=== PATIENT | female | born 1960 | race African-American/Black ===

== ENCOUNTER 2020-05-28 23:20 | Inpatient (IN) ==
[2020-05-28] MEDS ORDERED: ZOFRAN INJ 4 MG VIAL ONE (23:30)
[2020-05-28] MEDS ORDERED: NS 1000 ML 1,000 ML ONE (23:43)
[2020-05-28] MEDS ORDERED: PHENERGAN INJ 25 MG IM ONE (23:52)
[2020-05-29] MEDS ORDERED: NS 1000 ML 1,000 ML ONE ×2 (00:14→04:48)
[2020-05-29] MEDS ORDERED: PHENERGAN INJ 25 MG IM ONE (00:27)
[2020-05-29] MEDS ORDERED: NS 1000 ML 1,000 ML IV ONE ×4 (00:28→01:40)
[2020-05-29] MEDS ORDERED: ZOFRAN INJ 4 MG VIAL IVP ONE (00:28)
[2020-05-29] MEDS ORDERED: NS 1000 ML 2,000 ML ONE (01:18)
--- NOTE | 2020-05-29 01:37 | DR.DIZZY ---
HPI Time seen Time Seen by Provider: 05/28/20 23:31 HPI Comment HPI Comment: PATIENT SAID SHE WOKE UP TO GO TO THE BATHROOM AND WAS DIZZY AND ATAXIC CAUSING HER TO FALL. SHE HAD STOOL ALL OVER THE FLOOR. SHE IS HAVING 10/10 THROBBING HEADACHE AND IS RUNNING LOW GRADE FEVER. SHE HAS PHOTOPHOBIA AND SLIGHTEST MONEMENT CAUSE PATIENT TO HAVE SEVERE HEADACHE. SHE IS CONFUSED AND IS HAVING INTERMITTENT CONTRACTIONS OF HER MUSCLES. SHE IS FULLY ALERT WITH THIS MOVEMENT. BEING WITH HER DAUGHTER WHO TESTED POSITIVE FOR THE COVID 19 VIRUS. SHE IS RESTLESS IN ER. Complaint Chief Complaint Doctor Comments: SUDDEN ONSET OF DIZZINESS AND IMBALANCE CAUSING PATIENT TO FALL AND HIT HER HEAD. COVID-19 Coronavirus risk:travel/contact w/high risk person: Yes Has patient experienced Coronavirus symptoms: No Nurses Notes Reviewed Nurses Notes Review: Yes Source History Provided: Patient Mode of Arrival Mode of Arrival: EMS Timing Came on: Suddenly Symptom Onset: Known Duration Duration: Constant Duration: Minutes Location of Weakness Weakness Location: Generalized Context Onset: At rest History of: None Stroke Symptoms: Ataxia, Acute confusion and Dizziness Severity Severity: Abnormal activity level Modifying factors Worsens: Change in Position, Turning Head and Rest Associated signs and symptoms Associated Signs and Symptoms: Vertigo, Imbalance, Weak, Change of Vision, Fever (LO9W GRADE FEVER.), Headache, Nausea and Vomiting PMH PMH Past Medical History: Diabetes and Hypertension Past Surgical History: Yes Surgical History: and Cholecystectomy Family History Family Medical History: Diabetes Mellitus and Hypertension Social History Do you use any recreational Drugs:: No ROS Review of Systems Constitutional: See HPI, Fever (LOWGRADE.), Weakness and Fatigue Eyes: See HPI and Photophobia ENTM: See HPI; negative Nose Discharge, Nose Congestion and Mouth Pain (MOUTH DRY.) Respiratoy: See HPI, Orthopnea and Short of Breath; negative Moist Cough and Wheezing Cardiovascular: No Symptoms Reported and See HPI; negative Chest Pain and Edema Gastrointestinal/Abdominal: See HPI, Nausea and Vomiting; negative Abdominal Pain Genitourinary: No Symptoms Reported, See HPI and Other; negative Dysuria, Frequency and Hematuria Neurological: See HPI, Headache, Weakness and Dizziness Musculoskeletal: See HPI and Muscle Pain; negative Back Pain Integumentary: No Symptoms Reported, See HPI and Change in Color; negative Rash and Juandice Hematologic/Lymphatic: No Symptoms Reported and See HPI; negative Easy Bruising and Swollen Glands Endocrine: No Symptoms Reported and See HPI; negative Increased Urine and Unexplained Weight Loss Psychiatric: See HPI and Anxiety All Other Systems: Reviewed and Negative PE Vital Signs Vitals: Temperature 98.8 F Pulse Rate [Left Brachial] 89 Pulse Rate 89 Respiratory Rate 20 Blood Pressure [Left Arm] 164/82 Blood Pressure 164/82 O2 Sat by Pulse Oximetry 99 General Limitations: Altered Mental Status General Appearance: Alert and In Distress Head Head Exam: Normal Inspection, Atraumatic and Normocephalic Eyes Eye exam: Normal Appearance and PERRL; negative Scleral Icterus and Conjunctival Injection Pupils: Regular, Round: Bilateral and Reactive: Bilateral Sclera/Conjunctival: Normal Inspection: Bilateral (PHOTOPHOBIA.) ENT ENT Exam: Normal Exam, Normal Oropharynx, Normal External Ear Exam and TM's Normal Bilaterally Neck Neck Exam: Normal Inspection and Trachea Midline; negative Tenderness and Lymphadenopathy Chest Chest Inspection: Normal Inspection and Symmetric Chest Wall Rise; negative Tenderness Respiratory Respiratory Exam: Normal Lung Sounds Bilat; negative Accessory Muscle Use, Chest Wall Tenderness and Respiratory Distress Respiratory Exam: Bilateral: Rhonchi Cardiovascular Cardiovascular Exam: Regular Rate, Normal Rhythm, Normal Heart Sounds, Systolic Murmur and Diastolic Murmur Abdominal Exam Abdominal Exam: Normal Inspection, Normal Bowel Sounds and Soft; negative Tenderness Rectal Rectal Exam: Deferred Extremeties Extremities Exam: Normal Inspection, Full ROM and Normal Capillary Refill; negative Tenderness, Edema and Calf Tenderness Back Back Exam: Normal Inspection and Full ROM; negative (R) CVA Tenderness, (L) CVA Tenderness and (R) Sciatic Notch Tenderness Neurologic Neurological Exam: Alert and Oriented X3; negative Motor Sensory Deficit Patient Oriented To: Person and Place; negative Time Speech: Fluid Speech Cranial Nerve Exam: Gag reflex (XI): Normal Motor Strength - LUE: 5/5 Motor Strength - RUE: 5/5 Motor Strength - LLE: 5/5 Upper Motor Neuron Exam: Babinski Sign: Normal Psychiatric Psychiatric Exam: Normal Affect and Anxious Skin Skin Exam: Dry MDM Additional Information Obtained Additional Information Obtained From: Old Records Differential Diagnosis Differential Diagnosis: Anemia, CVA, Dehydration, Dysrhythmia, Electrolyte disor adonay, Hypoglycemia, Labyrinthitis, Myocardial infarction and Central Vertigo Differential Diagnosis Comment: COVID 19 VIRUS INFECTION. COURSE Treatment Treatment: SEE ORDERS. NS 1L IV BOLUS TIMES 4. ZOSYN 3.375GM IVPB, ZOFRAN 4MG IV, PHENERGAN 25MG IM IN ER. PATIENT FEELING BETTER. Consultation Consultation Comments: DISSCUSSED PATIENT WITH DR. HASSAN. HE WILL ADMIT PATIENT. Education/Counseling Education/Counseling: Patient Educated On: Diagnosis ROR Labs Reviewed Laboratory Results Reviewed?: Yes Result Diagrams: 05/29/20 01:55 05/29/20 01:55 Laboratory: WBC 11.3 X10^3/uL (3.6-10.0) H 05/29/20 01:55 RBC 4.61 X10^6/uL (3.5-5.4) 05/29/20 01:55 Hgb 12.2 g/dL (12.0-16.0) 05/29/20 01:55 Hct 38.3 % (36.0-47.0) 05/29/20 01:55 MCV 83.0 fL (80.0-100.0) 05/29/20 01:55 MCH 26.5 pg (27.0-34.0) L 05/29/20 01:55 MCHC 31.9 g/dL (33.0-35.0) L 05/29/20 01:55 RDW 14.0 % (11.6-16.5) 05/29/20 01:55 Plt Count 176 X10^3/uL (150.0-450.0) 05/29/20 01:55 MPV 9.8 fL (7.4-11.0) 05/29/20 01:55 Neut % (Auto) 85.5 % (42.0-75.0) H 05/29/20 01:55 Lymph % (Auto) 9.3 % (21.0-51.0) L 05/29/20 01:55 [place] % (Auto) 4.8 % (0.0-13.0) 05/29/20 01:55 Eos % (Auto) 0.0 % (0.9-2.9) L 05/29/20 01:55 Baso % (Auto) 0.4 % (0.2-1.0) 05/29/20 01:55 Neut # (Auto) 9.7 x10^3/uL (2.2-4.8) H 05/29/20 01:55 Lymph # (Auto) 1.0 X10^3/uL (1.3-2.9) L 05/29/20 01:55 [place] # (Auto) 0.5 x10^3/uL (0.3-0.8) 05/29/20 01:55 Eos # (Auto) 0.0 x10^3/uL (0.0-0.2) 05/29/20 01:55 Baso # (Auto) 0.0 X10^3/uL (0.0-0.1) 05/29/20 01:55 Absolute Nucleated RBC 0.1 /100WBC 05/29/20 01:55 Sodium 136 mmol/L (136-145) 05/29/20 01:55 Corrected Sodium 139 mmol/L (136-145) 05/29/20 01:55 Potassium 4.2 mmol/L (3.5-5.1) 05/29/20 01:55 Chloride 103 mmol/L (98-107) 05/29/20 01:55 Carbon Dioxide 20.4 mmol/L (21-32) L 05/29/20 01:55 BUN 21 mg/dL (7-18) H 05/29/20 01:55 Creatinine 1.23 mg/dL (0.55-1.02) H 05/29/20 01:55 Est GFR (MDRD) Af Amer 57 (>60) L 05/29/20 01:55 Est GFR (MDRD) Non-Af 47 (>60) L 05/29/20 01:55 Glucose 216 mg/dL (65-99) H 05/29/20 01:55 Lactic Acid Cancelled 05/29/20 01:55 Calcium 8.8 mg/dL (8.5-10.1) 05/29/20 01:55 Corrected Calcium 9.4 mg/dL (8.5-10.1) 05/29/20 01:55 Ferritin 746 ng/mL (8-252) H 05/29/20 01:55 Total Bilirubin 0.40 mg/dL (0.2-1.0) 05/29/20 01:55 AST 42 Units/L (15-37) H 05/29/20 01:55 ALT 20 Units/L (12-78) 05/29/20 01:55 Alkaline Phosphatase 80 Units/L (46-116) 05/29/20 01:55 Creatine Kinase 256 Units/L (26-192) H 05/29/20 01:55 CK-MB (CK-2) 1.0 ng/mL (0-4.0) 05/29/20 01:55 CK/CKMB % Calc 0.4 % (<4) 05/29/20 01:55 Troponin I < 0.02 ng/mL (0-1.5) 05/29/20 01:55 C-Reactive Protein 82.00 mg/L (0-3.0) H 05/29/20 01:55 B-Natriuretic Peptide 24.3 pg/mL (0-79) 05/29/20 01:55 Total Protein 8.0 g/dL (6.4-8.2) 05/29/20 01:55 Albumin 3.2 g/dL (3.4-5.0) L 05/29/20 01:55 Globulin 4.8 g/dL (2.5-4.5) H 05/29/20 01:55 Albumin/Globulin Ratio 0.7 Ratio (1.1-2.1) L 05/29/20 01:55 Specimen Type Catherized urine 05/29/20 01:40 Urine Color Pale yellow (YELLOW) 05/29/20 01:40 Urine Appearance Clear (CLEAR) 05/29/20 01:40 Urine pH 5.0 (5.0 - 8.0) 05/29/20 01:40 Ur Specific [place] 1.010 (1.000-1.030) 05/29/20 01:40 Urine Protein 2+ (NEGATIVE) 05/29/20 01:40 Urine Glucose (UA) 4+ (NEGATIVE) 05/29/20 01:40 Urine Ketones 2+ (NEGATIVE) 05/29/20 01:40 Urine Occult Blood 1+ (NEGATIVE) 05/29/20 01:40 Urine Nitrite Negative (NEGATIVE) 05/29/20 01:40 Urine Bilirubin Negative (NEGATIVE) 05/29/20 01:40 Urine Urobilinogen Normal (NORMAL) 05/29/20 01:40 Ur Leukocyte Esterase Negative (NEGATIVE) 05/29/20 01:40 Urine RBC None seen /HPF (0-3) 05/29/20 01:40 Urine WBC None seen /HPF (0-5) 05/29/20 01:40 Ur Squamous Epith Cells Negative /HPF (NEGATIVE) 05/29/20 01:40 Urine Bacteria Trace /HPF (NEGATIVE) 05/29/20 01:40 Ur Culture Indicated? No/not indicated 05/29/20 01:40 Acetone, Semi-Quant Cancelled 05/29/20 01:55 SARS CoV-2 RNA Rapid MARILU Positive (NEGATIVE) A 05/29/20 02:05 XRAY XRAY Interpreted by: Radiologist (REPORTS NOTED AND DISCUSSED WITH PATIENT.) and Self EKG Rate: 91 [place]: Normal Rhythm: NSR Block: None Hypertrophy: None ST: Normal Opioid Opioid Risk Tool Age (Kartik box if 16-45): No History of Preadolescent Sexual Abuse: No Total: 0 Total Score Risk Category: Low Risk Copyright: Smith ENCAR[employer] predicting aberrant behaviors Diagnosis Discharge Problem: Acute dehydration, Vertigo, Acute hyperglycemia, COVID-19 virus infection AMS (altered mental status) Qualifiers: Altered mental status type: transient alteration of awareness Qualified Code(s): R40.4 - Transient alteration of awareness Instructions Forms: Precautions for COVID19 Patient Portal Social Distancing
[2020-05-29 02:12] LABS: BASOPHILS % (AUTO) 0.4 % (0.2-1.0); HEMATOCRIT 38.3 % (36.0-47.0); HEMOGLOBIN 12.2 g/dL (12.0-16.0); LYMPHOCYTES % (AUTO) 9.3 % (21.0-51.0); MEAN CORPUSCULAR HEMOGLOBIN 26.5 pg (27.0-34.0); MEAN CORPUSCULAR HGB CONC 31.9 g/dL (33.0-35.0); MEAN PLATELET VOLUME 9.8 fL (7.4-11.0); MONOCYTES # (AUTO) 0.5 x10^3/uL (0.3-0.8); MONOCYTES % (AUTO) 4.8 % (0.0-13.0); NEUTROPHILS # (AUTO) 9.7 x10^3/uL (2.2-4.8); NEUTROPHILS % (AUTO) 85.5 % (42.0-75.0); PLATELET COUNT 176 X10^3/uL (150.0-450.0); RED BLOOD COUNT 4.61 X10^6/uL (3.5-5.4); WHITE BLOOD COUNT 11.3 X10^3/uL (3.6-10.0)
[2020-05-29 02:28] LABS: BLOOD UREA NITROGEN 21 mg/dL (7-18); CALCIUM 8.8 mg/dL (8.5-10.1); CARBON DIOXIDE 20.4 mmol/L (21-32); CHLORIDE 103 mmol/L (98-107); COR NA(FOR HYPERGLY) 139 mmol/L (136-145); CREATININE 1.23 mg/dL (0.55-1.02); SODIUM 136 mmol/L (136-145); TROPONIN I < 0.02 ng/mL (0-1.5); eGFR NON BLACK RACES 47 (>60)
[2020-05-29 02:32] LABS: ALANINE AMINOTRANSFERASE 20 Units/L (12-78); ALBUMIN 3.2 g/dL (3.4-5.0); ALKALINE PHOSPHATASE 80 Units/L (46-116); ASPARTATE AMINO TRANSFERASE 42 Units/L (15-37); CKMB % 0.4 % (<4); COR CA(FOR HYPOALB) 9.4 mg/dL (8.5-10.1); CREATINE KINASE 256 Units/L (26-192)
[2020-05-29 02:36] LABS: BILIRUBIN,URINE NEGATIVE (NEGATIVE); BLOOD/HEMOGLOBIN,URINE 1+ (NEGATIVE); GLUCOSE, URINE 4+ (NEGATIVE); KETONES,URINE 2+ (NEGATIVE); LEUKOCYTE ESTERASE ,URINE NEGATIVE (NEGATIVE); NITRITES,URINE NEGATIVE (NEGATIVE); PROTEIN,URINE 2+ (NEGATIVE); UROBILINOGEN,URINE NORMAL (NORMAL)
[2020-05-29 02:40] LABS: APPEARANCE,URINE CLEAR (CLEAR); COLOR,URINE PALE YELLOW (YELLOW)
[2020-05-29 03:06] LABS: BACTERIA,URINE TRACE /HPF (NEGATIVE); RBC,URINE NONE SEEN /HPF (0-3); SQUAMOUS EPITHELIAL CELL,UR NEGATIVE /HPF (NEGATIVE)
[2020-05-29] MEDS ORDERED: NS 100 ML IV + SPIKE MINIBAG* 100 ML IV ONE (03:11)
[2020-05-29] MEDS ORDERED: ZOSYN VIAL 3.375 GRAMS 3.375 G in NS 100 ML IV + SPIKE MINIBAG* 100 ML IV ONE (03:11)
[2020-05-29] MEDS ORDERED: ZOSYN VIAL 3.375 GRAMS IV ONE (03:11)
--- NOTE | 2020-05-29 03:19 | RAD ---
PROCEDURE: Chest X-ray 1 View .HISTORY: Dizziness and falling with COVID-19.TECHNIQUE: AP view .COMPARISON: None .TECHNICAL QUALITY: Satisfactory .FINDINGS:Normal size heart .Mediastinum and hilar regions show no masses or lymphadenopathy .Normal central vascularity .No pulmonary consolidation, masses, pleural fluid, or pneumothorax .No acute bony abnormality .IMPRESSION:No active cardiopulmonary disease .Electronically signed by: Bucky Galicia (May 29, 2020 03:18:09)
--- NOTE | 2020-05-29 03:21 | CT ---
PROCEDURE: CT Head without Contrast .HISTORY: Dizziness and fall and.TECHNIQUE: Axial images were performed through the head without the administration of IV contrast with multiplanar reformations . Dose reduction techniques including Automated Exposure Control (AEC) and adjustment of mA and kV were utilized .COMPARISON: None .TECHNICAL QUALITY: Satisfactory .FINDINGS:Brain shows no mass, hemorrhage, or acute stroke.Ventricles are normal size for patient's age.Minimal basal ganglia calcifications bilaterally. Dense falcine calcifications.No acute skull or scalp abnormality.Visualized sinuses and mastoids are clear.IMPRESSION:No acute intracranial abnormality.Electronically signed by: Bucky Galicia (May 29, 2020 03:19:34)
[2020-05-29] MEDS ORDERED: ZOSYN VIAL 3.375 GRAMS 3.375 G in NS 100 ML IV + SPIKE MINIBAG* 100 ML IV SCH (04:11)
[2020-05-29] MEDS ORDERED: HumuLIN R SC PRN (04:36)
[2020-05-29 05:14] VITALS: BMI 29.9
[2020-05-29] MEDS ORDERED: ZESTRIL TAB 20 MG PO SCH (09:00)
[2020-05-29 09:53] LABS: ABG BASE EXCESS -8.1 mmol/L (-2.0-2.0)
[2020-05-29] MEDS: TRICOR TAB 160 MG PO SCH (10:20)
[2020-05-29] MEDS: COZAAR PO SCH (10:20)
[2020-05-29] MEDS: PROTONIX INJ 40 MG VIAL IVP SCH ×2 (10:20→20:05)
[2020-05-29] MEDS: ANTIVERT TAB 25 MG PO PRN ×2 (10:20→20:05)
[2020-05-29] MEDS: LOVENOX INJ 30 MG SYR SC SCH ×2 (11:22→20:05)
[2020-05-29] MEDS ORDERED: NS 100 ML IV 100 ML IV ONE (11:40)
[2020-05-29] MEDS: ZOSYN VIAL 3.375 GRAMS 3.375 G in NS 100 ML IV + SPIKE MINIBAG* 100 ML IV SCH ×2 (12:10→21:45)
--- NOTE | 2020-05-29 12:22 | CT ---
HISTORYElevated D-dimerSTUDYCTA chest with contrast for pulmonary embolusTechnique: Axial post-contrast images with coronal, sagittal, and 3 dimensional maximum intensity projection images obtained and evaluated. Dose reduction procedures were used with mA/kv adjusted for body size.COMPARISONNoneFINDINGSThere is no evidence for acute pulmonary thromboembolic disease. Examination of the mediastinum demonstrated no evidence for mediastinal masses, enlarged mediastinal or enlarged hilar adenopathy or significant aortic abnormality. No pleural effusions are identified. The right hemidiaphragm is elevated. No chest wall or axillary abnormality is identified. Those portions of the upper abdominal organs visualized were within normal limits. Examination of the lung sen demonstrated no significant nodules or masses to be present. There is some pleural parenchymal scarring in the left lung apex. There are no alveolar infiltrates areas of consolidation, peribronchial thickening, or bronchiectasis present. Scattered areas of subsegmental atelectasis are present.IMPRESSIONNo evidence for acute pulmonary thromboembolic diseaseNo acute alveolar infiltratesPleural parenchymal scarring medially in the left lung apexScattered areas of subsegmental atelectasis bilaterallyElevated right hemidiaphragmElectronically signed by: JANELLE KEITH (May 29, 2020 12:20:43)
[2020-05-29] MEDS ORDERED: OFIRMEV IV 1000 MG VIAL 750 MG/75 ML VIAL IV PRN (17:15)
[2020-05-29] MEDS ORDERED: OFIRMEV IV 1000 MG VIAL 1,000 MG/100 ML VIAL IV ONE (17:20)
--- NOTE | 2020-05-29 17:26 | DR.H&P ---
H&P - History & Physical for Day of: H&P Date: 05/29/20 - Chief Complaint Chief Complaint: COVID EXPOSURE, FEVER, DIZZINESS, FATIGUE, NVD - History of Present Illness History of Present Illness: PATIENT SAID SHE WOKE UP TO GO TO THE BATHROOM AND WAS DIZZY AND ATAXIC CAUSING HER TO FALL. SHE HAD STOOL ALL OVER THE FLOOR. SHE IS HAVING 10/10 THROBBING HEADACHE AND IS RUNNING LOW GRADE FEVER. SHE HAS PHOTOPHOBIA AND SLIGHTEST MONEMENT CAUSE PATIENT TO HAVE SEVERE HEADACHE. SHE IS CONFUSED AND IS HAVING INTERMITTENT CONTRACTIONS OF HER MUSCLES. SHE IS FULLY ALERT WITH THIS MOVEMENT. PT HAS PMH OF DM, HTN, OA - Past Medical History Past Medical History: Hypertension, Diabetes - Past Surgical History Surgical History: , Cholecystectomy - Family History Family Medical History: Diabetes Mellitus, Hypertension - Social History Does patient currently use any type of tobacco product: No Have you used tobacco products in the last 12 months: No Type of Tobacco Use: None Does any household member use tobacco: No Alcohol Use: None Drug Use: None - Medications Home Medications: epinephrine Allergy (Verified 10/04/19 23:45) lidocaine Allergy (Verified 10/04/19 23:45) CONTINUE taking the following medications ertugliflozin [Steglatro] 5 mg PO DAILY 05/29/20 [History] fenofibrate 160 mg PO DAILY 05/29/20 [History] hydrochlorothiazide 25 mg PO DAILY 05/29/20 [History] insulin detemir U-100 [Levemir U-100 Insulin] 30 unit SUBCUT HS 05/29/20 [History] lisinopril 20 mg PO DAILY 05/29/20 [History] losartan 50 mg PO DAILY 05/29/20 [History] potassium chloride 10 meq PO DAILY 05/29/20 [History] - Review of Systems Constitutional: Fever, Weakness Eyes: No Symptoms Reported ENT: Nose Congestion Respiratory: Cough Cardiovascular: Light Headedness Gastrointestinal: Nausea, Vomiting, Diarrhea Genitourinary: No Symptoms Reported Musculoskeletal: No Symptoms Reported Skin: No Symptoms Reported Neurological: Other (DIZZINESS) - Physical Exam Vital Signs: Temperature 99.8 F Pulse Rate [Left Brachial] 94 Pulse Rate 86 Respiratory Rate 21 Blood Pressure [Right Arm] 108/70 Blood Pressure [Left Arm] 144/70 Blood Pressure 157/72 O2 Sat by Pulse Oximetry 96 Oriented: Normal Eyes: Normal Ear: Normal Nose: Normal Throat: Dry Respiratory: RLL Diminished, LLL Diminished Cardiovascular: Normal : Normal Auscultation: Bowel Sounds: Normal Palpation: Normal Tenderness: Epigastric, Mild Skin: Decreased Turgur Musculoskeletal: Back:Lumbar Psychiatric: Anxiety Affect: Anxious Speech Pattern: Clear, Appropriate - Assessment/Plan (1) COVID-19 virus infection Status: Acute Plan: ADMIT, IV HYDRATION. BS AND BP CONTROL, DDIMER. CARDIAC MONITORING, SSI. IV HYDRATION, STRICT I&OS, CRP ON ADMISSION. IV REMDESIVIR (2) Essential hypertension Status: Acute (3) Hypokalemia Status: Acute (4) Acute dehydration Status: Acute - Allergies Allergies/Adverse Reactions: Allergies Allergy/AdvReac Type Severity Reaction Status Date / Time epinephrine Allergy Verified 10/04/19 23:45 lidocaine Allergy Verified 10/04/19 23:45
[2020-05-29] MEDS: OFIRMEV IV 1000 MG VIAL 1,000 MG/100 ML VIAL IV PRN ×2 (17:44→23:55)
[2020-05-29] MEDS: SNACK - Diabetic Appropriate PO SCH (20:05)
[2020-05-30] MEDS ORDERED: TUSSIONEX PENNKINETIC SUSP ONE (00:03)
[2020-05-30] MEDS: TUSSIONEX PENNKINETIC SUSP PO PRN ×2 (00:12→13:33)
[2020-05-30 05:06] LABS: BASOPHILS % (AUTO) 0.3 % (0.2-1.0); HEMATOCRIT 35.5 % (36.0-47.0); HEMOGLOBIN 11.3 g/dL (12.0-16.0); LYMPHOCYTES # (AUTO) 1.2 X10^3/uL (1.3-2.9); LYMPHOCYTES % (AUTO) 11.6 % (21.0-51.0); MEAN CORPUSCULAR HEMOGLOBIN 26.5 pg (27.0-34.0); MEAN CORPUSCULAR HGB CONC 31.7 g/dL (33.0-35.0); MEAN CORPUSCULAR VOLUME 83.7 fL (80.0-100.0); MONOCYTES # (AUTO) 0.3 x10^3/uL (0.3-0.8); MONOCYTES % (AUTO) 3.4 % (0.0-13.0); NEUTROPHILS # (AUTO) 8.5 x10^3/uL (2.2-4.8); NEUTROPHILS % (AUTO) 84.7 % (42.0-75.0); PLATELET COUNT 167 X10^3/uL (150.0-450.0); RED BLOOD COUNT 4.24 X10^6/uL (3.5-5.4); RED CELL DISTRIBUTION WIDTH 14.2 % (11.6-16.5)
[2020-05-30 05:10] LABS: ALBUMIN 2.5 g/dL (3.4-5.0); CALCIUM 8.4 mg/dL (8.5-10.1); CARBON DIOXIDE 20.1 mmol/L (21-32); COR CA(FOR HYPOALB) 9.6 mg/dL (8.5-10.1); CREATININE 1.2 mg/dL (0.55-1.02); TOTAL PROTEIN 6.8 g/dL (6.4-8.2)
[2020-05-30] MEDS: ZOSYN VIAL 3.375 GRAMS 3.375 G in NS 100 ML IV + SPIKE MINIBAG* 100 ML IV SCH ×3 (05:45→21:00)
[2020-05-30 06:01] LABS: ABG BASE EXCESS -8.5 mmol/L (-2.0-2.0)
[2020-05-30 06:02] LABS: ABG ALLEN TEST POS; ABG HCO3 16.3 mmol/L (22-26)
[2020-05-30] MEDS: COZAAR PO SCH (08:20)
[2020-05-30] MEDS: LOVENOX INJ 30 MG SYR SC SCH ×2 (08:20→20:24)
[2020-05-30] MEDS: PROTONIX INJ 40 MG VIAL IVP SCH ×2 (08:21→21:00)
[2020-05-30] MEDS: TRICOR TAB 160 MG PO SCH (08:21)
[2020-05-30] MEDS: ROBITUSSIN DM PO PRN ×3 (08:32→21:00)
[2020-05-30] MEDS: OFIRMEV IV 1000 MG VIAL 1,000 MG/100 ML VIAL IV PRN ×3 (08:47→23:05)
[2020-05-30] MEDS: HumuLIN R SUBCUT PRN (11:30)
[2020-05-30] MEDS: SNACK - Diabetic Appropriate PO SCH (20:35)
[2020-05-31] MEDS: TUSSIONEX PENNKINETIC SUSP PO PRN ×2 (04:05→21:50)
[2020-05-31 05:03] LABS: ABG BASE EXCESS -9.7 mmol/L (-2.0-2.0)
[2020-05-31 05:04] LABS: ABG ALLEN TEST POS; ABG HCO3 14.6 mmol/L (22-26)
[2020-05-31 05:11] LABS: BASOPHILS % (AUTO) 0.2 % (0.2-1.0); EOSINOPHILS % (AUTO) 0.1 % (0.9-2.9); HEMATOCRIT 35.3 % (36.0-47.0); HEMOGLOBIN 11.2 g/dL (12.0-16.0); LYMPHOCYTES # (AUTO) 0.9 X10^3/uL (1.3-2.9); LYMPHOCYTES % (AUTO) 9.9 % (21.0-51.0); MEAN CORPUSCULAR HEMOGLOBIN 26.5 pg (27.0-34.0); MEAN CORPUSCULAR HGB CONC 31.7 g/dL (33.0-35.0); MEAN CORPUSCULAR VOLUME 83.5 fL (80.0-100.0); MEAN PLATELET VOLUME 10.3 fL (7.4-11.0); MONOCYTES # (AUTO) 0.3 x10^3/uL (0.3-0.8); NEUTROPHILS % (AUTO) 86.8 % (42.0-75.0); PLATELET COUNT 170 X10^3/uL (150.0-450.0); RED BLOOD COUNT 4.23 X10^6/uL (3.5-5.4); RED CELL DISTRIBUTION WIDTH 14.1 % (11.6-16.5); WHITE BLOOD COUNT 9.2 X10^3/uL (3.6-10.0)
[2020-05-31] MEDS: ZOSYN VIAL 3.375 GRAMS 3.375 G in NS 100 ML IV + SPIKE MINIBAG* 100 ML IV SCH ×3 (05:17→21:50)
[2020-05-31 05:27] LABS: ALANINE AMINOTRANSFERASE 17 Units/L (12-78); ALBUMIN 2.4 g/dL (3.4-5.0); ALKALINE PHOSPHATASE 71 Units/L (46-116); ASPARTATE AMINO TRANSFERASE 35 Units/L (15-37); BLOOD UREA NITROGEN 9 mg/dL (7-18); CALCIUM 8.8 mg/dL (8.5-10.1); CARBON DIOXIDE 15.8 mmol/L (21-32); CHLORIDE 103 mmol/L (98-107); COR CA(FOR HYPOALB) 10.1 mg/dL (8.5-10.1); COR NA(FOR HYPERGLY) 141 mmol/L (136-145); CREATININE 1.06 mg/dL (0.55-1.02); MAGNESIUM 1.8 mg/dL (1.7-2.9); SODIUM 140 mmol/L (136-145); eGFR NON BLACK RACES 56 (>60)
[2020-05-31] MEDS: COZAAR PO SCH (08:24)
[2020-05-31] MEDS: PROTONIX INJ 40 MG VIAL IVP SCH ×2 (08:25→21:49)
[2020-05-31] MEDS: TRICOR TAB 160 MG PO SCH (08:25)
[2020-05-31] MEDS: LOVENOX INJ 30 MG SYR SC SCH ×2 (08:25→21:48)
[2020-05-31] MEDS ORDERED: PHARMACY CONSULT - IVERMECTIN XX SCH (09:00)
[2020-05-31] MEDS ORDERED: REMDESIVIR 200 MG in NS 250 ML IV 250 ML IV ONE (09:00)
[2020-05-31] MEDS ORDERED: IVERMECTIN PO ONE (09:00)
[2020-05-31 09:34] LABS: SERUM ACETONE SMALL (NEGATIVE)
[2020-05-31 09:39] LABS: LACTIC ACID 0.5 mmol/L (0.4-2.0)
--- NOTE | 2020-05-31 09:56 | RAD ---
HISTORYHYPOXIASTUDYCHEST, 1 [id number]/22/2021TECHNIQUEAP view of the chestFINDINGSThe cardiac and mediastinal contours appear stable. Worsened bilateral airspace disease particularly in the perihilar regions. No definite pleural effusion or pneumothorax. Soft tissue attenuation limits evaluation.IMPRESSIONWorsened bilateral airspace disease may represent pneumonia.Electronically signed by: Taras Mcnulty (May 31, 2020 09:54:41)
[2020-05-31] MEDS ORDERED: NS 1/2 1000 ML IV 1,000 ML IV ONE (10:30)
[2020-05-31] MEDS: LEVAQUIN PREMIX IV 500 MG 500 MG/100 ML BAG IV SCH (10:42)
[2020-05-31] MEDS: ROBITUSSIN DM PO SCH ×4 (10:42→20:30)
[2020-05-31] MEDS: NS 1/2 1000 ML IV 1,000 ML IV SCH ×2 (10:42→23:04)
[2020-05-31 14:34] LABS: ALANINE AMINOTRANSFERASE 26 Units/L (12-78); ALBUMIN 2.5 g/dL (3.4-5.0); ALKALINE PHOSPHATASE 78 Units/L (46-116); ASPARTATE AMINO TRANSFERASE 38 Units/L (15-37); BLOOD UREA NITROGEN 9 mg/dL (7-18); CALCIUM 8.8 mg/dL (8.5-10.1); CHLORIDE 99 mmol/L (98-107); COR NA(FOR HYPERGLY) 137 mmol/L (136-145); SODIUM 135 mmol/L (136-145); TOTAL PROTEIN 7.6 g/dL (6.4-8.2); eGFR NON BLACK RACES 54 (>60)
[2020-05-31] MEDS: OFIRMEV IV 1000 MG VIAL 1,000 MG/100 ML VIAL IV PRN (15:17)
[2020-05-31] MEDS: SOLU-Medrol 125 MG VIAL IVP SCH ×2 (18:40→21:50)
[2020-05-31 19:55] LABS: BILIRUBIN,URINE NEGATIVE (NEGATIVE); BLOOD/HEMOGLOBIN,URINE 2+ (NEGATIVE); GLUCOSE, URINE 4+ (NEGATIVE); KETONES,URINE 3+ (NEGATIVE); LEUKOCYTE ESTERASE ,URINE NEGATIVE (NEGATIVE); NITRITES,URINE NEGATIVE (NEGATIVE); PROTEIN,URINE 3+ (NEGATIVE); UROBILINOGEN,URINE NORMAL (NORMAL)
[2020-05-31] MEDS: SNACK - Diabetic Appropriate PO SCH (20:00)
[2020-05-31 20:02] LABS: APPEARANCE,URINE CLOUDY (CLEAR); COLOR,URINE YELLOW (YELLOW)
[2020-05-31 20:04] LABS: BACTERIA,URINE 1+ /HPF (NEGATIVE); SQUAMOUS EPITHELIAL CELL,UR RARE /HPF (NEGATIVE); YEAST,URINE MANY /HPF (NEGATIVE)
[2020-05-31] MEDS ORDERED: DUONEB 0.5 MG/3 MG (3 mL) NEB ONE (20:41)
[2020-05-31] MEDS: DUONEB 0.5 MG/3 MG (3 mL) NEB SCH (21:10)
[2020-06-01] MEDS ORDERED: NS 1/2 1000 ML IV 1,000 ML IV ONE ×3 (02:46→15:15)
[2020-06-01] MEDS: NS 1/2 1000 ML IV 1,000 ML IV SCH ×2 (03:00→11:53)
[2020-06-01] MEDS: ROBITUSSIN DM PO SCH ×6 (03:46→22:59)
[2020-06-01 05:17] LABS: BASOPHILS % (AUTO) 0.1 % (0.2-1.0); HEMATOCRIT 33.5 % (36.0-47.0); HEMOGLOBIN 10.6 g/dL (12.0-16.0); LYMPHOCYTES # (AUTO) 0.5 X10^3/uL (1.3-2.9); LYMPHOCYTES % (AUTO) 5.6 % (21.0-51.0); MEAN CORPUSCULAR HEMOGLOBIN 26.6 pg (27.0-34.0); MEAN CORPUSCULAR HGB CONC 31.6 g/dL (33.0-35.0); MEAN CORPUSCULAR VOLUME 84.1 fL (80.0-100.0); MEAN PLATELET VOLUME 9.9 fL (7.4-11.0); MONOCYTES # (AUTO) 0.2 x10^3/uL (0.3-0.8); NEUTROPHILS # (AUTO) 8.2 x10^3/uL (2.2-4.8); NEUTROPHILS % (AUTO) 92.3 % (42.0-75.0); PLATELET COUNT 189 X10^3/uL (150.0-450.0); RED BLOOD COUNT 3.99 X10^6/uL (3.5-5.4); RED CELL DISTRIBUTION WIDTH 14.2 % (11.6-16.5); WHITE BLOOD COUNT 8.8 X10^3/uL (3.6-10.0)
[2020-06-01 05:37] LABS: ALANINE AMINOTRANSFERASE 23 Units/L (12-78); ALBUMIN 2.1 g/dL (3.4-5.0); ALKALINE PHOSPHATASE 68 Units/L (46-116); ASPARTATE AMINO TRANSFERASE 37 Units/L (15-37); BLOOD UREA NITROGEN 15 mg/dL (7-18); CALCIUM 8.7 mg/dL (8.5-10.1); CARBON DIOXIDE 16.5 mmol/L (21-32); CHLORIDE 101 mmol/L (98-107); COR CA(FOR HYPOALB) 10.2 mg/dL (8.5-10.1); COR NA(FOR HYPERGLY) 141 mmol/L (136-145); CREATININE 1.15 mg/dL (0.55-1.02); SODIUM 138 mmol/L (136-145); TOTAL PROTEIN 6.8 g/dL (6.4-8.2); eGFR NON BLACK RACES 51 (>60)
[2020-06-01 05:38] LABS: ABG BASE EXCESS -12.7 mmol/L (-2.0-2.0)
[2020-06-01 05:40] LABS: ABG ALLEN TEST POS
[2020-06-01] MEDS: ZOSYN VIAL 3.375 GRAMS 3.375 G in NS 100 ML IV + SPIKE MINIBAG* 100 ML IV SCH ×3 (05:41→21:06)
[2020-06-01] MEDS: SOLU-Medrol 125 MG VIAL IVP SCH ×3 (05:41→21:05)
[2020-06-01] MEDS: HumuLIN R SUBCUT PRN ×4 (06:01→18:03)
[2020-06-01 06:04] LABS: HYPOCHROMASIA SLIGHT; PLATELET MORPHOLOGY COMMENT NORMAL (NORMAL)
--- NOTE | 2020-06-01 06:38 | RAD ---
HISTORYDyspneaSTUDYChest AP [id number]/24/2021FINDINGSThe heart is within normal limits in size. The aorta is calcified. The lungs are hypoinflated but somewhat better inflated than on the prior examination. Bilateral perihilar alveolar infiltrates are present and slightly worsened when compared to the prior examination. No pleural effusions are identified. Bony thorax is unremarkable.IMPRESSIONContinued hypo inflation but with slight improvement in the aeration of both lungs when compared to the prior examinationIncreasing bilateral alveolar infiltrates when compared with the prior examinationElectronically signed by: JANELLE KEITH (Jun 01, 2020 06:35:53)
[2020-06-01] MEDS ORDERED: LASIX IVP SCH (09:00)
[2020-06-01] MEDS: LEVAQUIN PREMIX IV 500 MG 500 MG/100 ML BAG IV SCH (09:11)
[2020-06-01] MEDS: DUONEB 0.5 MG/3 MG (3 mL) NEB SCH ×3 (09:12→21:20)
[2020-06-01 09:14] LABS: SERUM ACETONE MODERATE (NEGATIVE)
[2020-06-01] MEDS: COZAAR PO SCH (09:27)
[2020-06-01] MEDS: LOVENOX INJ 30 MG SYR SC SCH ×2 (09:27→20:57)
[2020-06-01] MEDS: REMDESIVIR 100 MG in NS 250 ML IV 250 ML IV SCH (09:28)
[2020-06-01] MEDS: PROTONIX INJ 40 MG VIAL IVP SCH ×2 (09:28→20:57)
[2020-06-01] MEDS: TRICOR TAB 160 MG PO SCH (09:29)
[2020-06-01] MEDS ORDERED: NS 1000 ML 1,000 ML IV ONE (11:19)
[2020-06-01] MEDS ORDERED: NS 1/2 1000 ML IV 1,000 ML IV SCH (12:00)
[2020-06-01] MEDS: PULMICORT NEB TX 0.5 MG NEB SCH ×2 (13:44→21:20)
[2020-06-01] MEDS ORDERED: NS 1000 ML 1,000 ML ONE (13:59)
[2020-06-01] MEDS ORDERED: NS 100 ML IV 100 ML IV ONE (14:00)
[2020-06-01] MEDS ORDERED: HumuLIN R ONE (14:01)
[2020-06-01] MEDS: NS 1000 ML 1,000 ML IV ONE ×2 (14:02→16:16)
[2020-06-01] MEDS ORDERED: SALINE 3% 15 ML NEB TX ONE (14:33)
[2020-06-01] MEDS ORDERED: AYR NASAL DROPS ENOSTRIL PRN (14:33)
[2020-06-01 14:43] LABS: ABG HCO3 15.3 mmol/L (22-26)
[2020-06-01] MEDS: TUSSIONEX PENNKINETIC SUSP PO PRN (15:01)
[2020-06-01] MEDS: MYXREDLIN 100 UNIT/100 ML BAG 100 UNIT/100 ML PLAST..BAG IV PRN (15:02)
[2020-06-01 16:40] LABS: CALCIUM 8.9 mg/dL (8.5-10.1); CARBON DIOXIDE 17.6 mmol/L (21-32); CREATININE 1.19 mg/dL (0.55-1.02)
[2020-06-01 18:22] LABS: BILIRUBIN,URINE NEGATIVE (NEGATIVE); BLOOD/HEMOGLOBIN,URINE NEGATIVE (NEGATIVE); GLUCOSE, URINE 4+ (NEGATIVE); KETONES,URINE 3+ (NEGATIVE); LEUKOCYTE ESTERASE ,URINE NEGATIVE (NEGATIVE); NITRITES,URINE NEGATIVE (NEGATIVE); PROTEIN,URINE 2+ (NEGATIVE); UROBILINOGEN,URINE NORMAL (NORMAL)
[2020-06-01 18:23] LABS: APPEARANCE,URINE CLEAR (CLEAR); COLOR,URINE YELLOW (YELLOW)
[2020-06-01] MEDS: D5 1/2 NS 1000 ML 1,000 ML IV SCH (18:32)
[2020-06-01] MEDS: SNACK - Diabetic Appropriate PO SCH (20:00)
[2020-06-01 20:10] LABS: BLOOD UREA NITROGEN 18 mg/dL (7-18); CALCIUM 8.7 mg/dL (8.5-10.1); CARBON DIOXIDE 22.7 mmol/L (21-32); CHLORIDE 106 mmol/L (98-107); COR NA(FOR HYPERGLY) 143 mmol/L (136-145); CREATININE 1.16 mg/dL (0.55-1.02); SODIUM 141 mmol/L (136-145); eGFR NON BLACK RACES 50 (>60)
[2020-06-01 20:26] LABS: ABG ALLEN TEST POS; ABG BASE EXCESS -4.4 mmol/L (-2.0-2.0)
[2020-06-02] LABS: BLOOD UREA NITROGEN 18 mg/dL (7-18); CARBON DIOXIDE 24.7 mmol/L (21-32); CHLORIDE 106 mmol/L (98-107); COR NA(FOR HYPERGLY) 143 mmol/L (136-145); CREATININE 1.14 mg/dL (0.55-1.02); SODIUM 140 mmol/L (136-145); eGFR NON BLACK RACES 52 (>60)
[2020-06-02] MEDS: ROBITUSSIN DM PO SCH ×6 (01:57→21:16)
[2020-06-02] MEDS: D5 1/2 NS 1000 ML 1,000 ML IV SCH ×4 (05:00→21:12)
[2020-06-02 05:13] LABS: BASOPHILS % (AUTO) 0.4 % (0.2-1.0); LYMPHOCYTES # (AUTO) 0.9 X10^3/uL (1.3-2.9); LYMPHOCYTES % (AUTO) 8.9 % (21.0-51.0); MEAN CORPUSCULAR HEMOGLOBIN 26.6 pg (27.0-34.0); MEAN CORPUSCULAR HGB CONC 32.4 g/dL (33.0-35.0); MEAN CORPUSCULAR VOLUME 82.1 fL (80.0-100.0); MEAN PLATELET VOLUME 9.1 fL (7.4-11.0); MONOCYTES # (AUTO) 0.5 x10^3/uL (0.3-0.8); MONOCYTES % (AUTO) 4.7 % (0.0-13.0); PLATELET COUNT 261 X10^3/uL (150.0-450.0); RED BLOOD COUNT 4.15 X10^6/uL (3.5-5.4); RED CELL DISTRIBUTION WIDTH 14.3 % (11.6-16.5); WHITE BLOOD COUNT 10.5 X10^3/uL (3.6-10.0)
[2020-06-02] MEDS: SOLU-Medrol 125 MG VIAL IVP SCH ×3 (05:14→21:16)
[2020-06-02] MEDS: ZOSYN VIAL 3.375 GRAMS 3.375 G in NS 100 ML IV + SPIKE MINIBAG* 100 ML IV SCH ×3 (05:15→21:15)
[2020-06-02 06:09] LABS: ABG BASE EXCESS 0.8 mmol/L (-2.0-2.0)
[2020-06-02 06:12] LABS: ABG ALLEN TEST POS
[2020-06-02 06:56] LABS: ALANINE AMINOTRANSFERASE 21 Units/L (12-78); ALBUMIN 2.2 g/dL (3.4-5.0); ALKALINE PHOSPHATASE 71 Units/L (46-116); ASPARTATE AMINO TRANSFERASE 34 Units/L (15-37); BLOOD UREA NITROGEN 16 mg/dL (7-18); CALCIUM 8.7 mg/dL (8.5-10.1); CARBON DIOXIDE 22.5 mmol/L (21-32); CHLORIDE 106 mmol/L (98-107); COR CA(FOR HYPOALB) 10.1 mg/dL (8.5-10.1); COR NA(FOR HYPERGLY) 144 mmol/L (136-145); CREATININE 1.07 mg/dL (0.55-1.02); SODIUM 142 mmol/L (136-145); eGFR NON BLACK RACES 55 (>60)
[2020-06-02] MEDS: LEVAQUIN PREMIX IV 500 MG 500 MG/100 ML BAG IV SCH (08:26)
[2020-06-02 08:51] LABS: SERUM ACETONE SMALL (NEGATIVE)
[2020-06-02] MEDS: DUONEB 0.5 MG/3 MG (3 mL) NEB SCH ×4 (08:56→21:15)
[2020-06-02] MEDS: PULMICORT NEB TX 0.5 MG NEB SCH ×2 (08:56→21:15)
[2020-06-02] MEDS: COZAAR PO SCH (09:35)
[2020-06-02] MEDS: REMDESIVIR 100 MG in NS 250 ML IV 250 ML IV SCH (09:35)
[2020-06-02] MEDS: LOVENOX INJ 30 MG SYR SC SCH ×2 (09:36→21:12)
[2020-06-02] MEDS: PROTONIX INJ 40 MG VIAL IVP SCH ×2 (09:36→21:15)
[2020-06-02] MEDS: TRICOR TAB 160 MG PO SCH (09:37)
[2020-06-02 10:05] LABS: LACTIC ACID 0.9 mmol/L (0.4-2.0)
--- NOTE | 2020-06-02 11:00 | RAD ---
HISTORYPNEUMONIA, COVIDSTUDYCHEST, 1 [id number]/25/2021FINDINGSThe lungs are not as well inflated as on the prior study.Patchy bilateral areas of opacity could be pneumonia; the findings have progressed.No significant effusion or pneumothorax.I cannot evaluate the heart size due to the lesser degree of inflation. Widened mediastinum probably due to the lesser degree of inflation.Bones are unremarkable.EKG leads are noted.IMPRESSION1. Decreased inflation2. Progressed pneumoniaElectronically signed by: Nelson Mejia (Jun 02, 2020 10:58:33)
--- NOTE | 2020-06-02 11:31 | PCM.PROG ---
Progress Note - Past Medical Family Social History Allergies: Allergies epinephrine Allergy (Verified 10/04/19 23:45) lidocaine Allergy (Verified 10/04/19 23:45) - Vital Signs and I&O's Vital Signs: Temperature 97.8 F Pulse Rate [Left Brachial] 80 Pulse Rate 82 Respiratory Rate 30 Blood Pressure [Right Arm] 168/85 Blood Pressure [Left Arm] 144/70 Blood Pressure 157/72 O2 Sat by Pulse Oximetry 97 Intake and Output: Intake & Output 05/30/20 05/31/20 06/01/20 06/02/20 11:59 11:59 11:59 11:59 Intake Total 2826 / 2826 3557 / 3557 2622 / 2622 5239 / 5239 Output Total 3150 / 3150 2700 / 2700 3700 / 3700 Balance -324 / -324 3557 / 3557 -78 / -78 1539 / 1539 - Physical Exam Oriented: Normal Eyes: Normal Ear: Normal Nose: Normal Throat: Dry Cardiovascular: Normal : Normal Auscultation: Bowel Sounds: Normal Tenderness: Epigastric, Mild Skin: Decreased Turgur Musculoskeletal: Back:Lumbar Psychiatric: Anxiety Affect: Anxious Speech Pattern: Clear, Appropriate - Laboratory and Diagnostics Result Diagrams: 06/02/20 04:15 06/02/20 04:15 Labs: 05/31/20 09:01 Blood Blood Culture - Preliminary 05/31/20 08:50 Blood Blood Culture - Preliminary 05/29/20 01:50 Blood Blood Culture - Preliminary 05/29/20 01:10 Blood Blood Culture - Preliminary Laboratory WBC 10.5 X10^3/uL (3.6-10.0) H 06/02/20 04:15 RBC 4.15 X10^6/uL (3.5-5.4) 06/02/20 04:15 Hgb 11.0 g/dL (12.0-16.0) L 06/02/20 04:15 Hct 34.0 % (36.0-47.0) L 06/02/20 04:15 MCV 82.1 fL (80.0-100.0) 06/02/20 04:15 MCH 26.6 pg (27.0-34.0) L 06/02/20 04:15 MCHC 32.4 g/dL (33.0-35.0) L 06/02/20 04:15 RDW 14.3 % (11.6-16.5) 06/02/20 04:15 Plt Count 261 X10^3/uL (150.0-450.0) 06/02/20 04:15 Plt Count Comment Adequate (ADEQUATE) 06/01/20 04:00 MPV 9.1 fL (7.4-11.0) 06/02/20 04:15 Neut % (Auto) 86.0 % (42.0-75.0) H 06/02/20 04:15 Lymph % (Auto) 8.9 % (21.0-51.0) L 06/02/20 04:15 [place] % (Auto) 4.7 % (0.0-13.0) 06/02/20 04:15 Eos % (Auto) 0.0 % (0.9-2.9) L 06/02/20 04:15 Baso % (Auto) 0.4 % (0.2-1.0) 06/02/20 04:15 Neut # (Auto) 9.0 x10^3/uL (2.2-4.8) H 06/02/20 04:15 Lymph # (Auto) 0.9 X10^3/uL (1.3-2.9) L 06/02/20 04:15 [place] # (Auto) 0.5 x10^3/uL (0.3-0.8) 06/02/20 04:15 Eos # (Auto) 0.0 x10^3/uL (0.0-0.2) 06/02/20 04:15 Baso # (Auto) 0.0 X10^3/uL (0.0-0.1) 06/02/20 04:15 Absolute Nucleated RBC 0.0 /100WBC 06/02/20 04:15 Total Counted 100 06/01/20 04:00 Neutrophils % (Manual) 96 % (39-76) H 06/01/20 04:00 Lymphocytes % (Manual) 4 % (13-43) L 06/01/20 04:00 Plt Morphology Comment Normal (NORMAL) 06/01/20 04:00 RBC Morphology Abnormal (NORMAL) A 06/01/20 04:00 Hypochromasia Slight A 06/01/20 04:00 D-Dimer 0.73 ug/ml (0.0-0.57) H* 05/31/20 04:00 Sample Site Rrad 06/02/20 06:07 ABG pH 7.390 (7.35-7.45) 06/02/20 06:07 ABG pCO2 43.0 mmHg (35.0-45.0) 06/02/20 06:07 ABG pO2 51.0 mmHg (80.0-100.0) L 06/02/20 06:07 ABG HCO3 26.0 mmol/L (22-26) 06/02/20 06:07 ABG O2 Saturation 85.0 % (90-100) L 06/02/20 06:07 ABG Base Excess 0.8 mmol/L (-2.0-2.0) 06/02/20 06:07 Aniket Test Pos 06/02/20 06:07 A-a Gradient 551.0 mmHg 06/02/20 06:07 FiO2 92.0 06/02/20 06:07 Blood Gas Comments Teddy abg well-mtf 06/02/20 06:07 Sodium 142 mmol/L (136-145) 06/02/20 04:15 Corrected Sodium 144 mmol/L (136-145) 06/02/20 04:15 Potassium 3.6 mmol/L (3.5-5.1) 06/02/20 04:15 Chloride 106 mmol/L (98-107) 06/02/20 04:15 Carbon Dioxide 22.5 mmol/L (21-32) 06/02/20 04:15 BUN 16 mg/dL (7-18) 06/02/20 04:15 Creatinine 1.07 mg/dL (0.55-1.02) H 06/02/20 04:15 Est GFR (MDRD) Af Amer > 60 (>60) 06/02/20 04:15 Est GFR (MDRD) Non-Af 55 (>60) L 06/02/20 04:15 Glucose 204 mg/dL (65-99) H 06/02/20 04:15 POC Glucose (mg/dL) 198 mg/dL (65-99) H 06/02/20 10:04 Lactic Acid 0.9 mmol/L (0.4-2.0) 06/02/20 08:55 Calcium 8.7 mg/dL (8.5-10.1) 06/02/20 04:15 Corrected Calcium 10.1 mg/dL (8.5-10.1) 06/02/20 04:15 Magnesium 1.8 mg/dL (1.7-2.9) 05/31/20 04:00 Ferritin 746 ng/mL (8-252) H 05/29/20 01:55 Total Bilirubin 0.30 mg/dL (0.2-1.0) 06/02/20 04:15 AST 34 Units/L (15-37) 06/02/20 04:15 ALT 21 Units/L (12-78) 06/02/20 04:15 Alkaline Phosphatase 71 Units/L (46-116) 06/02/20 04:15 Creatine Kinase 256 Units/L (26-192) H 05/29/20 01:55 CK-MB (CK-2) 1.0 ng/mL (0-4.0) 05/29/20 01:55 CK/CKMB % Calc 0.4 % (<4) 05/29/20 01:55 Troponin I < 0.02 ng/mL (0-1.5) 05/29/20 01:55 C-Reactive Protein 181.10 mg/L (0-3.0) H 06/02/20 04:15 B-Natriuretic Peptide 24.3 pg/mL (0-79) 05/29/20 01:55 Total Protein 7.0 g/dL (6.4-8.2) 06/02/20 04:15 Albumin 2.2 g/dL (3.4-5.0) L 06/02/20 04:15 Globulin 4.8 g/dL (2.5-4.5) H 06/02/20 04:15 Albumin/Globulin Ratio 0.5 Ratio (1.1-2.1) L 06/02/20 04:15 Specimen Type Clean catch urine 06/01/20 17:47 Urine Color Yellow (YELLOW) 06/01/20 17:47 Urine Appearance Clear (CLEAR) 06/01/20 17:47 Urine pH 5.0 (5.0 - 8.0) 06/01/20 17:47 Ur Specific [place] 1.015 (1.000-1.030) 06/01/20 17:47 Urine Protein 2+ (NEGATIVE) 06/01/20 17:47 Urine Glucose (UA) 4+ (NEGATIVE) 06/01/20 17:47 Urine Ketones 3+ (NEGATIVE) 06/01/20 17:47 Urine Occult Blood Negative (NEGATIVE) 06/01/20 17:47 Urine Nitrite Negative (NEGATIVE) 06/01/20 17:47 Urine Bilirubin Negative (NEGATIVE) 06/01/20 17:47 Urine Acetone Large (NEGATIVE) H 06/01/20 13:50 Urine Urobilinogen Normal (NORMAL) 06/01/20 17:47 Ur Leukocyte Esterase Negative (NEGATIVE) 06/01/20 17:47 Urine RBC 3-5 /HPF (0-3) A 05/31/20 19:30 Urine WBC 0-2 /HPF (0-5) 05/31/20 19:30 Ur Squamous Epith Cells Rare /HPF (NEGATIVE) 05/31/20 19:30 Urine Bacteria 1+ /HPF (NEGATIVE) 05/31/20 19:30 Urine Yeast Many /HPF (NEGATIVE) 05/31/20 19:30 Ur Culture Indicated? No/not indicated 05/31/20 19:30 Acetone, Semi-Quant Small (NEGATIVE) H 06/02/20 08:55 SARS CoV-2 RNA Rapid MARILU Positive (NEGATIVE) A 05/29/20 02:05 - Plan (1) COVID-19 virus infection Status: Acute Plan: ADMIT, IV HYDRATION. BS AND BP CONTROL, DDIMER. CARDIAC MONITORING, SSI. IV HYDRATION, STRICT I&OS, CRP ON ADMISSION. IV REMDESIVIR (2) Essential hypertension Status: Acute (3) Hypokalemia Status: Acute (4) Acute dehydration Status: Acute
[2020-06-02] MEDS ORDERED: COZAAR PO ONE (17:13)
[2020-06-02] MEDS ORDERED: NARCAN INJ IVP ONE (19:15)
[2020-06-02] MEDS: SNACK - Diabetic Appropriate PO SCH (20:00)
[2020-06-02] MEDS: COLACE CAP 100 MG PO SCH (21:12)
[2020-06-02] MEDS: MILK OF MAGNESIA PO SCH (21:15)
[2020-06-03] MEDS: ROBITUSSIN DM PO SCH ×6 (03:10→22:15)
[2020-06-03] MEDS: D5 1/2 NS 1000 ML 1,000 ML IV SCH (04:00)
[2020-06-03] MEDS: SOLU-Medrol 125 MG VIAL IVP SCH ×3 (05:13→22:00)
[2020-06-03] MEDS: ZOSYN VIAL 3.375 GRAMS 3.375 G in NS 100 ML IV + SPIKE MINIBAG* 100 ML IV SCH ×3 (05:13→22:12)
[2020-06-03 05:45] LABS: BASOPHILS # (AUTO) 0.1 X10^3/uL (0.0-0.1); BASOPHILS % (AUTO) 0.6 % (0.2-1.0); HEMATOCRIT 34.5 % (36.0-47.0); HEMOGLOBIN 11.1 g/dL (12.0-16.0); LYMPHOCYTES # (AUTO) 0.5 X10^3/uL (1.3-2.9); LYMPHOCYTES % (AUTO) 3.9 % (21.0-51.0); MEAN CORPUSCULAR HEMOGLOBIN 26.3 pg (27.0-34.0); MEAN CORPUSCULAR HGB CONC 32.2 g/dL (33.0-35.0); MEAN CORPUSCULAR VOLUME 81.9 fL (80.0-100.0); MEAN PLATELET VOLUME 9.1 fL (7.4-11.0); MONOCYTES # (AUTO) 0.7 x10^3/uL (0.3-0.8); MONOCYTES % (AUTO) 5.4 % (0.0-13.0); NEUTROPHILS # (AUTO) 10.9 x10^3/uL (2.2-4.8); NEUTROPHILS % (AUTO) 90.1 % (42.0-75.0); PLATELET COUNT 279 X10^3/uL (150.0-450.0); RED BLOOD COUNT 4.21 X10^6/uL (3.5-5.4); RED CELL DISTRIBUTION WIDTH 14.3 % (11.6-16.5); WHITE BLOOD COUNT 12.1 X10^3/uL (3.6-10.0)
--- NOTE | 2020-06-03 05:53 | RAD ---
HISTORYSOB, covidSTUDYAP chestCOMPARISONFebruary 2020FINDINGSStable heart size, not significantly enlarged. Persistent bilateral airspace disease with slight apparent improvement in pulmonary aeration. There is no evidence for complicating pneumothorax or other extrapulmonary air.IMPRESSIONSlight interval improvement in bilateral pneumonia since 1 day earlier.Electronically signed by: MISTY HAUSER (Jun 03, 2020 05:51:41)
[2020-06-03 06:10] LABS: ALANINE AMINOTRANSFERASE 21 Units/L (12-78); ALBUMIN 2.1 g/dL (3.4-5.0); ALKALINE PHOSPHATASE 68 Units/L (46-116); ASPARTATE AMINO TRANSFERASE 28 Units/L (15-37); BLOOD UREA NITROGEN 13 mg/dL (7-18); CALCIUM 8.6 mg/dL (8.5-10.1); CARBON DIOXIDE 28.9 mmol/L (21-32); CHLORIDE 107 mmol/L (98-107); COR CA(FOR HYPOALB) 10.1 mg/dL (8.5-10.1); COR NA(FOR HYPERGLY) 146 mmol/L (136-145); SODIUM 144 mmol/L (136-145); TOTAL PROTEIN 6.6 g/dL (6.4-8.2); eGFR NON BLACK RACES 60 (>60)
[2020-06-03 06:15] LABS: PLATELET MORPHOLOGY COMMENT NORMAL (NORMAL)
[2020-06-03] MEDS: MYXREDLIN 100 UNIT/100 ML BAG 100 UNIT/100 ML PLAST..BAG IV PRN (06:15)
[2020-06-03 06:24] LABS: ABG BASE EXCESS 6.2 mmol/L (-2.0-2.0); ABG HCO3 31.8 mmol/L (22-26)
[2020-06-03 06:25] LABS: ABG ALLEN TEST POS
[2020-06-03] MEDS ORDERED: POTASSIUM CHL 60 MEQ/NS 0.45% 500 ML IV PRN (06:27)
[2020-06-03] MEDS ORDERED: POTASSIUM CHLORIDE LIQ 20 MEQ UDC PO PRN (06:27)
[2020-06-03] MEDS ORDERED: MAGNESIUM SULFATE 1 GRAM/100 mL PREMIX 1 GM/100 ML BAG IV PRN (06:27)
[2020-06-03] MEDS ORDERED: MICRO K EXTEN CAP 10 MEQ PO PRN (06:27)
[2020-06-03] MEDS ORDERED: KLOR-CON PO PRN (06:27)
[2020-06-03] MEDS ORDERED: POTASSIUM CHL 40 MEQ/NS 0.45% 500 ML IV PRN (06:27)
[2020-06-03] MEDS ORDERED: K-RIDER 10 MEQ/NS 100 ML 10 MEQ/100 ML BAG IV PRN (06:27)
[2020-06-03] MEDS: REMDESIVIR 100 MG in NS 250 ML IV 250 ML IV SCH (08:08)
[2020-06-03] MEDS: PULMICORT NEB TX 0.5 MG NEB SCH ×2 (08:30→20:55)
[2020-06-03] MEDS: DUONEB 0.5 MG/3 MG (3 mL) NEB SCH ×4 (08:30→20:55)
[2020-06-03] MEDS: LOVENOX INJ 30 MG SYR SC SCH ×2 (08:53→22:13)
[2020-06-03] MEDS: TRICOR TAB 160 MG PO SCH (08:54)
[2020-06-03] MEDS: LEVAQUIN PREMIX IV 500 MG 500 MG/100 ML BAG IV SCH (08:55)
[2020-06-03] MEDS: MILK OF MAGNESIA PO SCH ×2 (08:55→22:14)
[2020-06-03] MEDS: PROTONIX INJ 40 MG VIAL IVP SCH ×2 (08:56→22:13)
[2020-06-03] MEDS ORDERED: IVERMECTIN PO ONE (09:00)
[2020-06-03] MEDS ORDERED: COZAAR PO SCH (09:00)
[2020-06-03] MEDS: COZAAR PO SCH (09:02)
[2020-06-03] MEDS ORDERED: NS 1/2 1000 ML IV 1,000 ML IV ONE ×2 (10:39→22:55)
[2020-06-03] MEDS: NS 1/2 1000 ML IV 1,000 ML IV SCH (10:48)
--- NOTE | 2020-06-03 11:53 | PCM.PROG ---
Progress Note - Progress Note for Day of Date of Exam: 06/03/20 - Subjective Subjective: Mrs. Mcqueen is a 59-year-old female, patient of who was admitted on 05/28/20. She is suffering from complications of COVID-19, originally started with dehydration and gastroenteritis symptoms advancing to pneumonia with worsening hypoxia. She is on heated high flow today at 81%. Her saturation have been 88-94%. She is currently on an insulin drip for treatment of DKA as well. Her bicarb has came up to 31.8 today and her acetones are negative. The patient continues with some anorexia. We have encouraged oral hydration and p.o. intake. The patient was encouraged to drink Ensure. She is on PPI therapy and as needed anti-emetics. The patient was sinus rhythm at 80 on the monitor. Blood pressure is stable. On morning rounds, She is awake, alert, and oriented. She continues with cough and shortness of breath, but reports slight improvement in symptoms today. Heart rate was sinus controlled rate and rhythm. Diffuse diminished lung sounds throughout. Abdomen is soft and nontender. Bowel sounds are present times all four quadrants. She has movement of upper and lower extremities with just some mild generalized weakness. No upper or lower extremity edema noted. Her vitals this morning are: 98.1-80-21-93%-164/95. Labs were obtained. Abnormal lab values include the following: WBC 12.1, HGB 11.1, HCT 34.5, POTASSIUM 3.3, GLUCOSE 194, CRP 99.90, ALBUMIN 2.1. ABG REVEALED: PH 7.420, PC02 49, P02 57, HC03 31.8, 02 SAT 90, BASE EXCESS 6.2, A-A GRADIENT 474, FI02 83. BLOOD CULTURES ARE PENDING. She had an echocardiogram with ejection fraction of 57%. She had no history of any coronary artery disease, just hypertension. The patients chest x-ray this morn ing showed slight interval improvement in bilateral pneumonia since 1 day earlier. Today, we will continue with IV hydration, IV antibiotics, neb tx, solu-medrol, lovenox, blood sugar control, and current plan of care. We will follow up with am labs, chest xray, abg, and continue to monitor. TIME SPENT ON CLINICAL ASSESSMENT, REVIEWING LABS AND IMAGING, DECISION MAKING, AND DOCUMENTATION GREATER THAN 75 MINUTES. - Past Medical Family Social History Past Med/Fam/Surg Hx: No changes since H&P Allergies: Allergies epinephrine Allergy (Verified 10/04/19 23:45) lidocaine Allergy (Verified 10/04/19 23:45) - Review of Systems ROS: No change since H&P - Vital Signs and I&O's Vital Signs: Temperature 98.1 F Pulse Rate [Left Brachial] 80 Pulse Rate 80 Respiratory Rate 21 Blood Pressure [Right Arm] 154/81 Blood Pressure [Left Arm] 144/70 Blood Pressure 157/72 O2 Sat by Pulse Oximetry 91 Intake and Output: Intake & Output 05/31/20 06/01/20 06/02/20 06/03/20 11:59 11:59 11:59 11:59 Intake Total 3557 / 3557 2622 / 2622 5239 / 5239 5085 / 5085 Output Total 2700 / 2700 3700 / 3700 3997 / 3997 Balance 3557 / 3557 -78 / -78 1539 / 1539 1088 / 1088 - Physical Exam Oriented: Normal Eyes: Normal Ear: Normal Nose: Normal Throat: Dry Respiratory: Generalized, Diminished Cardiovascular: Normal : Normal Auscultation: Bowel Sounds: Normal Palpation: Normal Tenderness: Normal Skin: Decreased Turgur Musculoskeletal: Back:Lumbar Psychiatric: Anxiety Affect: Anxious Speech Pattern: Clear, Appropriate - Laboratory and Diagnostics Result Diagrams: 06/03/20 04:37 06/03/20 04:37 Labs: 05/29/20 01:50 Blood Blood Culture - Final 05/29/20 01:10 Blood Blood Culture - Final 05/31/20 09:01 Blood Blood Culture - Preliminary 05/31/20 08:50 Blood Blood Culture - Preliminary Laboratory WBC 12.1 X10^3/uL (3.6-10.0) H 06/03/20 04:37 RBC 4.21 X10^6/uL (3.5-5.4) 06/03/20 04:37 Hgb 11.1 g/dL (12.0-16.0) L 06/03/20 04:37 Hct 34.5 % (36.0-47.0) L 06/03/20 04:37 MCV 81.9 fL (80.0-100.0) 06/03/20 04:37 MCH 26.3 pg (27.0-34.0) L 06/03/20 04:37 MCHC 32.2 g/dL (33.0-35.0) L 06/03/20 04:37 RDW 14.3 % (11.6-16.5) 06/03/20 04:37 Plt Count 279 X10^3/uL (150.0-450.0) 06/03/20 04:37 Plt Count Comment Adequate (ADEQUATE) 06/03/20 04:37 MPV 9.1 fL (7.4-11.0) 06/03/20 04:37 Neut % (Auto) 90.1 % (42.0-75.0) H 06/03/20 04:37 Lymph % (Auto) 3.9 % (21.0-51.0) L 06/03/20 04:37 [place] % (Auto) 5.4 % (0.0-13.0) 06/03/20 04:37 Eos % (Auto) 0.0 % (0.9-2.9) L 06/03/20 04:37 Baso % (Auto) 0.6 % (0.2-1.0) 06/03/20 04:37 Neut # (Auto) 10.9 x10^3/uL (2.2-4.8) H 06/03/20 04:37 Lymph # (Auto) 0.5 X10^3/uL (1.3-2.9) L 06/03/20 04:37 [place] # (Auto) 0.7 x10^3/uL (0.3-0.8) 06/03/20 04:37 Eos # (Auto) 0.0 x10^3/uL (0.0-0.2) 06/03/20 04:37 Baso # (Auto) 0.1 X10^3/uL (0.0-0.1) 06/03/20 04:37 Absolute Nucleated RBC 0.0 /100WBC 06/03/20 04:37 Total Counted 100 06/03/20 04:37 Neutrophils % (Manual) 79 % (39-76) H 06/03/20 04:37 Lymphocytes % (Manual) 7 % (13-43) L 06/03/20 04:37 Monocytes % (Manual) 12 % (4-9) H 06/03/20 04:37 Eosinophils % (Manual) 2 % (0-6) 06/03/20 04:37 Plt Morphology Comment Normal (NORMAL) 06/03/20 04:37 RBC Morphology Normal (NORMAL) 06/03/20 04:37 Hypochromasia Slight A 06/01/20 04:00 D-Dimer 0.73 ug/ml (0.0-0.57) H* 05/31/20 04:00 Sample Site Rrad 06/03/20 06:22 ABG pH 7.420 (7.35-7.45) 06/03/20 06:22 ABG pCO2 49.0 mmHg (35.0-45.0) H 06/03/20 06:22 ABG pO2 57.0 mmHg (80.0-100.0) L 06/03/20 06:22 ABG HCO3 31.8 mmol/L (22-26) H* 06/03/20 06:22 ABG O2 Saturation 90.0 % (90-100) 06/03/20 06:22 ABG Base Excess 6.2 mmol/L (-2.0-2.0) H 06/03/20 06:22 Aniket Test Pos 06/03/20 06:22 A-a Gradient 474.0 mmHg 06/03/20 06:22 FiO2 83.0 06/03/20 06:22 Blood Gas Comments Teddy abg well-mtf 06/03/20 06:22 Sodium 144 mmol/L (136-145) 06/03/20 04:37 Corrected Sodium 146 mmol/L (136-145) H 06/03/20 04:37 Potassium 3.3 mmol/L (3.5-5.1) L 06/03/20 04:37 Chloride 107 mmol/L (98-107) 06/03/20 04:37 Carbon Dioxide 28.9 mmol/L (21-32) 06/03/20 04:37 BUN 13 mg/dL (7-18) 06/03/20 04:37 Creatinine 1.00 mg/dL (0.55-1.02) 06/03/20 04:37 Est GFR (MDRD) Af Amer > 60 (>60) 06/03/20 04:37 Est GFR (MDRD) Non-Af 60 (>60) 06/03/20 04:37 Glucose 194 mg/dL (65-99) H 06/03/20 04:37 POC Glucose (mg/dL) 210 mg/dL (65-99) H 06/03/20 10:43 Lactic Acid 0.9 mmol/L (0.4-2.0) 06/02/20 08:55 Calcium 8.6 mg/dL (8.5-10.1) 06/03/20 04:37 Corrected Calcium 10.1 mg/dL (8.5-10.1) 06/03/20 04:37 Magnesium 2.1 mg/dL (1.7-2.9) 06/03/20 04:37 Ferritin 746 ng/mL (8-252) H 05/29/20 01:55 Total Bilirubin 0.30 mg/dL (0.2-1.0) 06/03/20 04:37 AST 28 Units/L (15-37) 06/03/20 04:37 ALT 21 Units/L (12-78) 06/03/20 04:37 Alkaline Phosphatase 68 Units/L (46-116) 06/03/20 04:37 Creatine Kinase 256 Units/L (26-192) H 05/29/20 01:55 CK-MB (CK-2) 1.0 ng/mL (0-4.0) 05/29/20 01:55 CK/CKMB % Calc 0.4 % (<4) 05/29/20 01:55 Troponin I < 0.02 ng/mL (0-1.5) 05/29/20 01:55 C-Reactive Protein 99.90 mg/L (0-3.0) H 06/03/20 04:37 B-Natriuretic Peptide 24.3 pg/mL (0-79) 05/29/20 01:55 Total Protein 6.6 g/dL (6.4-8.2) 06/03/20 04:37 Albumin 2.1 g/dL (3.4-5.0) L 06/03/20 04:37 Globulin 4.5 g/dL (2.5-4.5) 06/03/20 04:37 Albumin/Globulin Ratio 0.5 Ratio (1.1-2.1) L 06/03/20 04:37 Specimen Type Clean catch urine 06/01/20 17:47 Urine Color Yellow (YELLOW) 06/01/20 17:47 Urine Appearance Clear (CLEAR) 06/01/20 17:47 Urine pH 5.0 (5.0 - 8.0) 06/01/20 17:47 Ur Specific [place] 1.015 (1.000-1.030) 06/01/20 17:47 Urine Protein 2+ (NEGATIVE) 06/01/20 17:47 Urine Glucose (UA) 4+ (NEGATIVE) 06/01/20 17:47 Urine Ketones 3+ (NEGATIVE) 06/01/20 17:47 Urine Occult Blood Negative (NEGATIVE) 06/01/20 17:47 Urine Nitrite Negative (NEGATIVE) 06/01/20 17:47 Urine Bilirubin Negative (NEGATIVE) 06/01/20 17:47 Urine Acetone Large (NEGATIVE) H 06/01/20 13:50 Urine Urobilinogen Normal (NORMAL) 06/01/20 17:47 Ur Leukocyte Esterase Negative (NEGATIVE) 06/01/20 17:47 Urine RBC 3-5 /HPF (0-3) A 05/31/20 19:30 Urine WBC 0-2 /HPF (0-5) 05/31/20 19:30 Ur Squamous Epith Cells Rare /HPF (NEGATIVE) 05/31/20 19:30 Urine Bacteria 1+ /HPF (NEGATIVE) 05/31/20 19:30 Urine Yeast Many /HPF (NEGATIVE) 05/31/20 19:30 Ur Culture Indicated? No/not indicated 05/31/20 19:30 Acetone, Semi-Quant Negative (NEGATIVE) 06/03/20 04:37 SARS CoV-2 RNA Rapid MARILU Positive (NEGATIVE) A 05/29/20 02:05 - Plan (1) COVID-19 virus infection Status: Acute Plan: IV HYDRATION, IV ANTIBIOTICS. BS AND BP CONTROL, DDIMER. CARDIAC MONITORING, SSI. IV HYDRATION, STRICT I&OS, CRP ON ADMISSION. IV REMDESIVIR (2) Acute dehydration Status: Acute (3) Hypokalemia Status: Acute (4) Essential hypertension Status: Chronic
[2020-06-03] MEDS: HumuLIN R SUBCUT PRN ×3 (13:43→22:19)
[2020-06-03] MEDS: K-DUR TAB 20 MEQ PO PRN (14:54)
[2020-06-03] MEDS: SNACK - Diabetic Appropriate PO SCH ×2 (20:00)
[2020-06-03] MEDS: COLACE CAP 100 MG PO SCH (22:14)
[2020-06-04] MEDS: ROBITUSSIN DM PO SCH ×6 (01:43→21:44)
[2020-06-04] MEDS: HumuLIN R SUBCUT PRN ×3 (01:47→21:45)
[2020-06-04] MEDS: ZOSYN VIAL 3.375 GRAMS 3.375 G in NS 100 ML IV + SPIKE MINIBAG* 100 ML IV SCH ×3 (05:40→21:42)
[2020-06-04 05:53] LABS: ABG BASE EXCESS 10.8 mmol/L (-2.0-2.0)
[2020-06-04 05:54] LABS: ABG HCO3 35.1 mmol/L (22-26)
[2020-06-04 05:55] LABS: ABG ALLEN TEST POS
[2020-06-04 05:59] LABS: BASOPHILS % (AUTO) 0.2 % (0.2-1.0); HEMOGLOBIN 12.1 g/dL (12.0-16.0); LYMPHOCYTES # (AUTO) 0.8 X10^3/uL (1.3-2.9); LYMPHOCYTES % (AUTO) 5.4 % (21.0-51.0); MEAN CORPUSCULAR HEMOGLOBIN 26.6 pg (27.0-34.0); MEAN CORPUSCULAR HGB CONC 32.6 g/dL (33.0-35.0); MEAN CORPUSCULAR VOLUME 81.5 fL (80.0-100.0); MONOCYTES # (AUTO) 1.2 x10^3/uL (0.3-0.8); MONOCYTES % (AUTO) 8.3 % (0.0-13.0); NEUTROPHILS # (AUTO) 12.2 x10^3/uL (2.2-4.8); NEUTROPHILS % (AUTO) 86.1 % (42.0-75.0); PLATELET COUNT 288 X10^3/uL (150.0-450.0); RED BLOOD COUNT 4.54 X10^6/uL (3.5-5.4); RED CELL DISTRIBUTION WIDTH 13.9 % (11.6-16.5); WHITE BLOOD COUNT 14.1 X10^3/uL (3.6-10.0)
[2020-06-04] MEDS: SOLU-Medrol 125 MG VIAL IVP SCH ×3 (06:00→21:50)
--- NOTE | 2020-06-04 06:11 | RAD ---
HISTORYSOB, covidSTUDYAP chestCOMPARISONFebruary 2020FINDINGSThere is no significant change in appearance of the pulmonary infiltrates. There may be minimal improvement at the left base but this is equivocal. No new areas of consolidation, pneumothorax or large pleural effusion is evident.IMPRESSIONEssentially stable appearance of bilateral pneumonia. See above.Electronically signed by: MISTY HAUSER (Jun 04, 2020 06:09:49)
[2020-06-04 06:19] LABS: ALANINE AMINOTRANSFERASE 20 Units/L (12-78); ALBUMIN 2.2 g/dL (3.4-5.0); ALKALINE PHOSPHATASE 77 Units/L (46-116); ASPARTATE AMINO TRANSFERASE 27 Units/L (15-37); BLOOD UREA NITROGEN 15 mg/dL (7-18); CALCIUM 8.6 mg/dL (8.5-10.1); CHLORIDE 106 mmol/L (98-107); COR NA(FOR HYPERGLY) 145 mmol/L (136-145); CREATININE 0.94 mg/dL (0.55-1.02); MAGNESIUM 2.3 mg/dL (1.7-2.9); SODIUM 144 mmol/L (136-145); TOTAL PROTEIN 6.7 g/dL (6.4-8.2); eGFR NON BLACK RACES > 60 (>60)
[2020-06-04 06:28] LABS: BAND NEUTROPHILS % 3 % (0-10); HYPOCHROMASIA SLIGHT; PLATELET MORPHOLOGY COMMENT NORMAL (NORMAL)
[2020-06-04] MEDS: DUONEB 0.5 MG/3 MG (3 mL) NEB SCH ×4 (08:30→20:15)
[2020-06-04] MEDS: PULMICORT NEB TX 0.5 MG NEB SCH ×2 (08:31→20:15)
[2020-06-04] MEDS: PROTONIX INJ 40 MG VIAL IVP SCH ×2 (08:39→21:47)
[2020-06-04] MEDS: LEVAQUIN PREMIX IV 500 MG 500 MG/100 ML BAG IV SCH (08:39)
[2020-06-04] MEDS ORDERED: LASIX IVP SCH (09:05)
[2020-06-04] MEDS: TRICOR TAB 160 MG PO SCH (09:25)
[2020-06-04] MEDS: COZAAR PO SCH (09:41)
[2020-06-04] MEDS: REMDESIVIR 100 MG in NS 250 ML IV 250 ML IV SCH (09:42)
[2020-06-04] MEDS: MILK OF MAGNESIA PO SCH ×2 (09:43→21:41)
[2020-06-04] MEDS: LOVENOX INJ 30 MG SYR SC SCH ×2 (09:53→21:42)
[2020-06-04] MEDS: CATAPRES-TTS-2 TD SCH (10:24)
--- NOTE | 2020-06-04 13:04 | PCM.PROG ---
Progress Note - Progress Note for Day of Date of Exam: 06/04/20 - Subjective Subjective: Mrs. Mcqueen is a 59-year-old female, patient of who was admitted on 05/28/20. She is suffering from complications of COVID-19, originally started with dehydration and gastroenteritis symptoms advancing to pneumonia with worsening hypoxia. She is on the bipap today at 100%. She was placed on bipap due to abg showing pc02 45 this morning. Her saturation have been 88-99%. Insulin drip was discontinued yesterday. Her bicarb has came up to 35.1 today and her acetones are negative. The patient continues with some anorexia. We have encouraged oral hydration and p.o. intake. The patient was encouraged to drink Ensure. She is on PPI therapy and as needed anti-emetics. The patient was sinus rhythm at 80 on the monitor. Blood pressure is stable. On morning rounds, She is awake, alert, and oriented. She continues with cough and shortness of breath, but reports slight improvement in symptoms today. Heart rate was sinus controlled rate and rhythm. Diffuse diminished lung sounds throughout. Abdomen is soft and nontender. Bowel sounds are present times all four quadrants. She has movement of upper and lower extremities with just some mild generalized weakness. No upper or lower extremity edema noted. Her vitals this morning are: 98.2-74-30-98%-189/95. Labs were obtained. Abnormal lab values include the following: WBC 14.1, GLUCOSE 146, CRP 66.0, ALBUMIN 2.2. ABG REVEALED: PH 7.510, P02 45, HC03 35.1, 02 SAT 85, BASE EXCESS 10.8, A-A GRADIENT 556, FI02 92. BLOOD CULTURES ARE PENDING. She had an echocardiogram with ejection fraction of 57%. She had no history of any coronary artery disease, just hypertension. The patients chest x-ray this morning showed Essentially stable appearance of bilateral pneumonia. Today, we will continue with IV hydration, IV antibiotics, neb tx, solu-medrol, lovenox, blood sugar control, and current plan of care. We will add a clonidine 0.2mg/hr td patch, Lasix 40mg iv q12h x 2 doses, and recheck an ABG at 1700. Otherwise, We will follow up with am labs, chest xray, abg, and continue to monitor. TIME SPENT ON CLINICAL A SSESSMENT, REVIEWING LABS AND IMAGING, DECISION MAKING, AND DOCUMENTATION GREATER THAN 75 MINUTES. - Past Medical Family Social History Past Med/Fam/Surg Hx: No changes since H&P Allergies: Allergies epinephrine Allergy (Verified 10/04/19 23:45) lidocaine Allergy (Verified 10/04/19 23:45) - Review of Systems ROS: No change since H&P - Vital Signs and I&O's Vital Signs: Temperature 98.2 F Pulse Rate [Left Brachial] 89 Pulse Rate 88 Respiratory Rate 27 Blood Pressure [left] 140/87 Blood Pressure [Right Arm] 169/83 Blood Pressure [Left Arm] 144/70 Blood Pressure 157/72 O2 Sat by Pulse Oximetry 97 Intake and Output: Intake & Output 06/02/20 06/03/20 06/04/20 06/05/20 11:59 11:59 11:59 11:59 Intake Total 5239 / 5239 5085 / 5085 2998 / 2998 Output Total 3700 / 3700 3997 / 3997 1200 / 1200 Balance 1539 / 1539 1088 / 1088 1798 / 1798 - Physical Exam Oriented: Normal Eyes: Normal Ear: Normal Nose: Normal Throat: Dry Respiratory: Generalized, Diminished Cardiovascular: Normal : Normal Auscultation: Bowel Sounds: Normal Tenderness: Normal Skin: Decreased Turgur Musculoskeletal: Back:Lumbar Psychiatric: Anxiety Affect: Anxious Speech Pattern: Clear, Appropriate - Laboratory and Diagnostics Result Diagrams: 06/04/20 05:02 06/04/20 05:02 Labs: 05/31/20 09:01 Blood Blood Culture - Final Staphylococcus Epidermidis 05/31/20 08:50 Blood Blood Culture - Final Staphylococcus Epidermidis 05/29/20 01:50 Blood Blood Culture - Final 05/29/20 01:10 Blood Blood Culture - Final Laboratory WBC 14.1 X10^3/uL (3.6-10.0) H 06/04/20 05:02 RBC 4.54 X10^6/uL (3.5-5.4) 06/04/20 05:02 Hgb 12.1 g/dL (12.0-16.0) 06/04/20 05:02 Hct 37.0 % (36.0-47.0) 06/04/20 05:02 MCV 81.5 fL (80.0-100.0) 06/04/20 05:02 MCH 26.6 pg (27.0-34.0) L 06/04/20 05:02 MCHC 32.6 g/dL (33.0-35.0) L 06/04/20 05:02 RDW 13.9 % (11.6-16.5) 06/04/20 05:02 Plt Count 288 X10^3/uL (150.0-450.0) 06/04/20 05:02 Plt Count Comment Adequate (ADEQUATE) 06/04/20 05:02 MPV 9.0 fL (7.4-11.0) 06/04/20 05:02 Neut % (Auto) 86.1 % (42.0-75.0) H 06/04/20 05:02 Lymph % (Auto) 5.4 % (21.0-51.0) L 06/04/20 05:02 [place] % (Auto) 8.3 % (0.0-13.0) 06/04/20 05:02 Eos % (Auto) 0.0 % (0.9-2.9) L 06/04/20 05:02 Baso % (Auto) 0.2 % (0.2-1.0) 06/04/20 05:02 Neut # (Auto) 12.2 x10^3/uL (2.2-4.8) H 06/04/20 05:02 Lymph # (Auto) 0.8 X10^3/uL (1.3-2.9) L 06/04/20 05:02 [place] # (Auto) 1.2 x10^3/uL (0.3-0.8) H 06/04/20 05:02 Eos # (Auto) 0.0 x10^3/uL (0.0-0.2) 06/04/20 05:02 Baso # (Auto) 0.0 X10^3/uL (0.0-0.1) 06/04/20 05:02 Absolute Nucleated RBC 0.0 /100WBC 06/04/20 05:02 Total Counted 100 06/04/20 05:02 Neutrophils % (Manual) 83 % (39-76) H 06/04/20 05:02 Band Neutrophils % 3 % (0-10) 06/04/20 05:02 Lymphocytes % (Manual) 6 % (13-43) L 06/04/20 05:02 Monocytes % (Manual) 8 % (4-9) 06/04/20 05:02 Eosinophils % (Manual) 2 % (0-6) 06/03/20 04:37 Plt Morphology Comment Normal (NORMAL) 06/04/20 05:02 RBC Morphology Abnormal (NORMAL) A 06/04/20 05:02 Hypochromasia Slight A 06/04/20 05:02 D-Dimer 0.73 ug/ml (0.0-0.57) H* 05/31/20 04:00 Sample Site Rrad 06/04/20 05:52 ABG pH 7.510 (7.35-7.45) H 06/04/20 05:52 ABG pCO2 44.0 mmHg (35.0-45.0) 06/04/20 05:52 ABG pO2 45.0 mmHg (80.0-100.0) L* 06/04/20 05:52 ABG HCO3 35.1 mmol/L (22-26) H* 06/04/20 05:52 ABG O2 Saturation 85.0 % (90-100) L 06/04/20 05:52 ABG Base Excess 10.8 mmol/L (-2.0-2.0) H 06/04/20 05:52 Aniket Test Pos 06/04/20 05:52 A-a Gradient 556.0 mmHg 06/04/20 05:52 FiO2 92.0 06/04/20 05:52 Blood Gas Comments Teddy abg well-mtf 06/04/20 05:52 Sodium 144 mmol/L (136-145) 06/04/20 05:02 Corrected Sodium 145 mmol/L (136-145) 06/04/20 05:02 Potassium 3.9 mmol/L (3.5-5.1) 06/04/20 05:02 Chloride 106 mmol/L (98-107) 06/04/20 05:02 Carbon Dioxide 30.0 mmol/L (21-32) 06/04/20 05:02 BUN 15 mg/dL (7-18) 06/04/20 05:02 Creatinine 0.94 mg/dL (0.55-1.02) 06/04/20 05:02 Est GFR (MDRD) Af Amer > 60 (>60) 06/04/20 05:02 Est GFR (MDRD) Non-Af > 60 (>60) 06/04/20 05:02 Glucose 146 mg/dL (65-99) H 06/04/20 05:02 POC Glucose (mg/dL) 202 mg/dL (65-99) H 06/04/20 09:40 Lactic Acid 0.9 mmol/L (0.4-2.0) 06/02/20 08:55 Calcium 8.6 mg/dL (8.5-10.1) 06/04/20 05:02 Corrected Calcium 10.0 mg/dL (8.5-10.1) 06/04/20 05:02 Magnesium 2.3 mg/dL (1.7-2.9) 06/04/20 05:02 Ferritin 746 ng/mL (8-252) H 05/29/20 01:55 Total Bilirubin 0.30 mg/dL (0.2-1.0) 06/04/20 05:02 AST 27 Units/L (15-37) 06/04/20 05:02 ALT 20 Units/L (12-78) 06/04/20 05:02 Alkaline Phosphatase 77 Units/L (46-116) 06/04/20 05:02 Creatine Kinase 256 Units/L (26-192) H 05/29/20 01:55 CK-MB (CK-2) 1.0 ng/mL (0-4.0) 05/29/20 01:55 CK/CKMB % Calc 0.4 % (<4) 05/29/20 01:55 Troponin I < 0.02 ng/mL (0-1.5) 05/29/20 01:55 C-Reactive Protein 66.00 mg/L (0-3.0) H 06/04/20 05:02 B-Natriuretic Peptide 24.3 pg/mL (0-79) 05/29/20 01:55 Total Protein 6.7 g/dL (6.4-8.2) 06/04/20 05:02 Albumin 2.2 g/dL (3.4-5.0) L 06/04/20 05:02 Globulin 4.5 g/dL (2.5-4.5) 06/04/20 05:02 Albumin/Globulin Ratio 0.5 Ratio (1.1-2.1) L 06/04/20 05:02 Specimen Type Clean catch urine 06/01/20 17:47 Urine Color Yellow (YELLOW) 06/01/20 17:47 Urine Appearance Clear (CLEAR) 06/01/20 17:47 Urine pH 5.0 (5.0 - 8.0) 06/01/20 17:47 Ur Specific [place] 1.015 (1.000-1.030) 06/01/20 17:47 Urine Protein 2+ (NEGATIVE) 06/01/20 17:47 Urine Glucose (UA) 4+ (NEGATIVE) 06/01/20 17:47 Urine Ketones 3+ (NEGATIVE) 06/01/20 17:47 Urine Occult Blood Negative (NEGATIVE) 06/01/20 17:47 Urine Nitrite Negative (NEGATIVE) 06/01/20 17:47 Urine Bilirubin Negative (NEGATIVE) 06/01/20 17:47 Urine Acetone Large (NEGATIVE) H 06/01/20 13:50 Urine Urobilinogen Normal (NORMAL) 06/01/20 17:47 Ur Leukocyte Esterase Negative (NEGATIVE) 06/01/20 17:47 Urine RBC 3-5 /HPF (0-3) A 05/31/20 19:30 Urine WBC 0-2 /HPF (0-5) 05/31/20 19:30 Ur Squamous Epith Cells Rare /HPF (NEGATIVE) 05/31/20 19:30 Urine Bacteria 1+ /HPF (NEGATIVE) 05/31/20 19:30 Urine Yeast Many /HPF (NEGATIVE) 05/31/20 19:30 Ur Culture Indicated? No/not indicated 05/31/20 19:30 Acetone, Semi-Quant Negative (NEGATIVE) 06/04/20 05:52 SARS CoV-2 RNA Rapid MARILU Positive (NEGATIVE) A 05/29/20 02:05 - Plan (1) COVID-19 virus infection Status: Acute Plan: IV HYDRATION, IV ANTIBIOTICS. BS AND BP CONTROL, DDIMER. CARDIAC MONITORING, SSI. IV HYDRATION, STRICT I&OS, CRP ON ADMISSION. IV REMDESIVIR (2) Acute dehydration Status: Acute (3) Hypokalemia Status: Acute (4) Essential hypertension Status: Chronic
[2020-06-04] MEDS ORDERED: MORPHINE SULFATE INJ 2 MG INJ IVP PRN (13:06)
[2020-06-04 16:50] LABS: ABG BASE EXCESS 9.2 mmol/L (-2.0-2.0)
[2020-06-04 16:51] LABS: ABG ALLEN TEST POS; ABG HCO3 34.2 mmol/L (22-26)
[2020-06-04] MEDS ORDERED: NS 1/2 1000 ML IV 1,000 ML IV ONE (18:28)
[2020-06-04] MEDS: NS 1/2 1000 ML IV 1,000 ML IV SCH ×2 (18:38)
[2020-06-04] MEDS: COLACE CAP 100 MG PO SCH (21:42)
[2020-06-04] MEDS: SNACK - Diabetic Appropriate PO SCH ×2 (21:47)
[2020-06-05] MEDS: ROBITUSSIN DM PO SCH ×6 (01:39→20:30)
[2020-06-05] MEDS: HumuLIN R SUBCUT PRN ×4 (01:54→20:30)
[2020-06-05 04:47] LABS: ABG ALLEN TEST POS; ABG BASE EXCESS 12.1 mmol/L (-2.0-2.0); ABG HCO3 36.7 mmol/L (22-26)
[2020-06-05] MEDS ORDERED: NS 1/2 1000 ML IV 1,000 ML IV ONE ×2 (06:05→17:49)
--- NOTE | 2020-06-05 06:26 | RAD ---
HISTORYShortness of breathSTUDYChest AP [id number]/28/2021FINDINGSHypo inflation accentuates the heart size. It is likely within normal limits. Bilateral alveolar infiltrates are again identified slightly improved when compared to the prior examination considering a difference in film technique. No pleural effusions are identified. Bony thorax is unremarkable.IMPRESSIONImproving bilateral alveolar infiltrates but with significant infiltrate remainsElectronically signed by: JANELLE KEITH (Jun 05, 2020 06:24:14)
[2020-06-05 06:27] LABS: BASOPHILS % (AUTO) 0.2 % (0.2-1.0); LYMPHOCYTES # (AUTO) 0.7 X10^3/uL (1.3-2.9); LYMPHOCYTES % (AUTO) 5.9 % (21.0-51.0); MEAN CORPUSCULAR HEMOGLOBIN 26.4 pg (27.0-34.0); MEAN CORPUSCULAR HGB CONC 32.4 g/dL (33.0-35.0); MEAN CORPUSCULAR VOLUME 81.6 fL (80.0-100.0); MEAN PLATELET VOLUME 8.5 fL (7.4-11.0); MONOCYTES % (AUTO) 7.7 % (0.0-13.0); NEUTROPHILS # (AUTO) 10.8 x10^3/uL (2.2-4.8); NEUTROPHILS % (AUTO) 86.2 % (42.0-75.0); PLATELET COUNT 294 X10^3/uL (150.0-450.0); RED BLOOD COUNT 4.17 X10^6/uL (3.5-5.4); RED CELL DISTRIBUTION WIDTH 13.8 % (11.6-16.5); WHITE BLOOD COUNT 12.5 X10^3/uL (3.6-10.0)
[2020-06-05] MEDS: SOLU-Medrol 125 MG VIAL IVP SCH ×3 (06:30→21:10)
[2020-06-05] MEDS: ZOSYN VIAL 3.375 GRAMS 3.375 G in NS 100 ML IV + SPIKE MINIBAG* 100 ML IV SCH ×3 (06:30→21:10)
[2020-06-05 06:36] LABS: ALANINE AMINOTRANSFERASE 20 Units/L (12-78); ALKALINE PHOSPHATASE 69 Units/L (46-116); ASPARTATE AMINO TRANSFERASE 22 Units/L (15-37); BLOOD UREA NITROGEN 19 mg/dL (7-18); CALCIUM 8.4 mg/dL (8.5-10.1); CARBON DIOXIDE 32.5 mmol/L (21-32); CHLORIDE 105 mmol/L (98-107); COR NA(FOR HYPERGLY) 146 mmol/L (136-145); CREATININE 1.02 mg/dL (0.55-1.02); SODIUM 145 mmol/L (136-145); TOTAL PROTEIN 6.2 g/dL (6.4-8.2); eGFR NON BLACK RACES 59 (>60)
[2020-06-05] MEDS: NS 1/2 1000 ML IV 1,000 ML IV SCH ×3 (07:22→18:10)
[2020-06-05 07:52] LABS: BAND NEUTROPHILS % 2 % (0-10); PLATELET MORPHOLOGY COMMENT NORMAL (NORMAL)
[2020-06-05] MEDS: COZAAR PO SCH (08:22)
[2020-06-05] MEDS: TRICOR TAB 160 MG PO SCH (08:22)
[2020-06-05] MEDS: PROTONIX INJ 40 MG VIAL IVP SCH ×2 (08:23→20:30)
[2020-06-05] MEDS: LEVAQUIN PREMIX IV 500 MG 500 MG/100 ML BAG IV SCH (08:23)
[2020-06-05] MEDS: MILK OF MAGNESIA PO SCH ×2 (08:23→20:30)
[2020-06-05] MEDS: LOVENOX INJ 30 MG SYR SC SCH ×2 (08:26→20:30)
[2020-06-05] MEDS: DUONEB 0.5 MG/3 MG (3 mL) NEB SCH ×4 (09:21→21:43)
[2020-06-05] MEDS: PULMICORT NEB TX 0.5 MG NEB SCH ×2 (09:21→21:43)
[2020-06-05] MEDS: COLACE CAP 100 MG PO SCH (20:30)
[2020-06-05] MEDS: SNACK - Diabetic Appropriate PO SCH (20:30)
[2020-06-06] MEDS: HumuLIN R SUBCUT PRN ×6 (00:36→20:55)
[2020-06-06] MEDS: ROBITUSSIN DM PO SCH ×6 (00:37→21:52)
[2020-06-06] MEDS ORDERED: NS 1/2 1000 ML IV 1,000 ML IV ONE ×4 (02:39→22:48)
[2020-06-06] MEDS: NS 1/2 1000 ML IV 1,000 ML IV SCH ×3 (03:45→15:06)
[2020-06-06 05:09] LABS: ABG BASE EXCESS 11.5 mmol/L (-2.0-2.0)
[2020-06-06 05:11] LABS: ABG ALLEN TEST POS; ABG HCO3 35.1 mmol/L (22-26)
[2020-06-06 05:40] LABS: BASOPHILS % (AUTO) 0.1 % (0.2-1.0); HEMATOCRIT 33.6 % (36.0-47.0); HEMOGLOBIN 10.6 g/dL (12.0-16.0); LYMPHOCYTES # (AUTO) 0.9 X10^3/uL (1.3-2.9); LYMPHOCYTES % (AUTO) 6.3 % (21.0-51.0); MEAN CORPUSCULAR HEMOGLOBIN 25.9 pg (27.0-34.0); MEAN CORPUSCULAR HGB CONC 31.5 g/dL (33.0-35.0); MEAN CORPUSCULAR VOLUME 82.1 fL (80.0-100.0); MEAN PLATELET VOLUME 8.6 fL (7.4-11.0); MONOCYTES # (AUTO) 0.9 x10^3/uL (0.3-0.8); MONOCYTES % (AUTO) 6.6 % (0.0-13.0); NEUTROPHILS # (AUTO) 11.7 x10^3/uL (2.2-4.8); PLATELET COUNT 291 X10^3/uL (150.0-450.0); RED BLOOD COUNT 4.09 X10^6/uL (3.5-5.4); WHITE BLOOD COUNT 13.5 X10^3/uL (3.6-10.0)
[2020-06-06 05:52] LABS: ALANINE AMINOTRANSFERASE 16 Units/L (12-78); ALBUMIN 1.9 g/dL (3.4-5.0); ALKALINE PHOSPHATASE 69 Units/L (46-116); ASPARTATE AMINO TRANSFERASE 14 Units/L (15-37); BLOOD UREA NITROGEN 18 mg/dL (7-18); CALCIUM 8.4 mg/dL (8.5-10.1); CARBON DIOXIDE 30.6 mmol/L (21-32); CHLORIDE 105 mmol/L (98-107); COR CA(FOR HYPOALB) 10.1 mg/dL (8.5-10.1); COR NA(FOR HYPERGLY) 144 mmol/L (136-145); CREATININE 0.93 mg/dL (0.55-1.02); SODIUM 142 mmol/L (136-145); TOTAL PROTEIN 5.9 g/dL (6.4-8.2); eGFR NON BLACK RACES > 60 (>60)
[2020-06-06] MEDS: ZOSYN VIAL 3.375 GRAMS 3.375 G in NS 100 ML IV + SPIKE MINIBAG* 100 ML IV SCH ×3 (06:09→21:00)
[2020-06-06] MEDS: SOLU-Medrol 125 MG VIAL IVP SCH ×3 (06:09→21:00)
[2020-06-06 06:21] LABS: BAND NEUTROPHILS % 8 % (0-10); PLATELET MORPHOLOGY COMMENT NORMAL (NORMAL)
[2020-06-06] MEDS: K-DUR TAB 20 MEQ PO PRN (06:45)
[2020-06-06] MEDS: LOVENOX INJ 30 MG SYR SC SCH ×2 (08:58→20:55)
[2020-06-06] MEDS: LEVAQUIN PREMIX IV 500 MG 500 MG/100 ML BAG IV SCH (08:58)
[2020-06-06] MEDS: PROTONIX INJ 40 MG VIAL IVP SCH ×2 (08:59→20:55)
[2020-06-06] MEDS: TRICOR TAB 160 MG PO SCH (08:59)
[2020-06-06] MEDS: COZAAR PO SCH (09:00)
[2020-06-06] MEDS: MILK OF MAGNESIA PO SCH ×2 (09:00→21:53)
[2020-06-06] MEDS: DUONEB 0.5 MG/3 MG (3 mL) NEB SCH ×4 (09:01→21:25)
[2020-06-06] MEDS: PULMICORT NEB TX 0.5 MG NEB SCH ×2 (09:01→21:25)
--- NOTE | 2020-06-06 09:24 | RAD ---
HISTORYPNEUMONIA, COVIDSTUDYCHEST, 1 VIEWCOMPARISONPortable chest June 05, 2020.FINDINGSThe trachea is midline. The cardiac silhouette is unremarkable. Lung volumes are early. The bilateral left greater than right perihilar infiltrates are stable compared to yesterday's exam. There is no effusion or pneumothorax.. The bony thorax is unremarkable.IMPRESSIONPersistent bilateral left greater than right perihilar infiltrates without change compared to yesterday's exam.Electronically signed by: VICKY LUIS (Jun 06, 2020 09:23:20)
[2020-06-06] MEDS: COLACE CAP 100 MG PO SCH (20:55)
[2020-06-06] MEDS: SNACK - Diabetic Appropriate PO SCH (20:55)
[2020-06-07] MEDS: ROBITUSSIN DM PO SCH ×5 (00:16→17:36)
[2020-06-07] MEDS: HumuLIN R SUBCUT PRN ×5 (00:35→21:40)
[2020-06-07] MEDS: NS 1/2 1000 ML IV 1,000 ML IV SCH ×4 (01:37→19:02)
[2020-06-07] MEDS: ZOSYN VIAL 3.375 GRAMS 3.375 G in NS 100 ML IV + SPIKE MINIBAG* 100 ML IV SCH ×3 (05:10→21:39)
[2020-06-07] MEDS: SOLU-Medrol 125 MG VIAL IVP SCH ×3 (05:10→22:00)
[2020-06-07 05:49] LABS: BASOPHILS % (AUTO) 0.2 % (0.2-1.0); HEMATOCRIT 32.4 % (36.0-47.0); HEMOGLOBIN 10.4 g/dL (12.0-16.0); LYMPHOCYTES % (AUTO) 6.8 % (21.0-51.0); MEAN CORPUSCULAR HEMOGLOBIN 26.2 pg (27.0-34.0); MEAN CORPUSCULAR VOLUME 81.9 fL (80.0-100.0); MEAN PLATELET VOLUME 8.8 fL (7.4-11.0); MONOCYTES # (AUTO) 0.8 x10^3/uL (0.3-0.8); MONOCYTES % (AUTO) 5.2 % (0.0-13.0); NEUTROPHILS # (AUTO) 12.9 x10^3/uL (2.2-4.8); NEUTROPHILS % (AUTO) 87.8 % (42.0-75.0); PLATELET COUNT 293 X10^3/uL (150.0-450.0); RED BLOOD COUNT 3.96 X10^6/uL (3.5-5.4); WHITE BLOOD COUNT 14.6 X10^3/uL (3.6-10.0)
[2020-06-07 06:06] LABS: ALANINE AMINOTRANSFERASE 14 Units/L (12-78); ALBUMIN 1.8 g/dL (3.4-5.0); ALKALINE PHOSPHATASE 73 Units/L (46-116); ASPARTATE AMINO TRANSFERASE 13 Units/L (15-37); BLOOD UREA NITROGEN 18 mg/dL (7-18); CARBON DIOXIDE 31.2 mmol/L (21-32); CHLORIDE 105 mmol/L (98-107); COR CA(FOR HYPOALB) 9.8 mg/dL (8.5-10.1); COR NA(FOR HYPERGLY) 143 mmol/L (136-145); CREATININE 0.92 mg/dL (0.55-1.02); SODIUM 141 mmol/L (136-145); TOTAL PROTEIN 5.5 g/dL (6.4-8.2); eGFR NON BLACK RACES > 60 (>60)
[2020-06-07 06:07] LABS: ABG BASE EXCESS 8.2 mmol/L (-2.0-2.0)
[2020-06-07 06:08] LABS: ABG ALLEN TEST POS; ABG HCO3 31.9 mmol/L (22-26)
[2020-06-07 06:22] LABS: BAND NEUTROPHILS % 10 % (0-10); HYPOCHROMASIA SLIGHT; PLATELET MORPHOLOGY COMMENT NORMAL (NORMAL); POIKILOCYTOSIS SLIGHT
[2020-06-07] MEDS: DUONEB 0.5 MG/3 MG (3 mL) NEB SCH ×4 (09:16→21:28)
[2020-06-07] MEDS: PULMICORT NEB TX 0.5 MG NEB SCH ×2 (09:16→21:28)
[2020-06-07] MEDS: LEVAQUIN PREMIX IV 500 MG 500 MG/100 ML BAG IV SCH (10:06)
[2020-06-07] MEDS: TRICOR TAB 160 MG PO SCH (10:06)
[2020-06-07] MEDS: MILK OF MAGNESIA PO SCH ×3 (10:07→21:37)
[2020-06-07] MEDS: COZAAR PO SCH (10:07)
[2020-06-07] MEDS: LOVENOX INJ 30 MG SYR SC SCH ×2 (10:07→21:38)
[2020-06-07] MEDS: PROTONIX INJ 40 MG VIAL IVP SCH ×2 (10:07→21:37)
--- NOTE | 2020-06-07 11:49 | RAD ---
HISTORY:Pneumonia, COVID-19Study: Single view chestComparison:06/06/2020Findings:Lung volumes are reduced with bilateral multifocal lung infiltrates there are stable is slightly worsened allowing for differences in positioning. Heart size is upper limits of normal. No pneumothorax identified. Soft tissues are intact.IMPRESSION:Stable to slightly worsened bilateral multifocal lung infiltrates.Electronically signed by: ELISE GRIER (Jun 07, 2020 11:47:38)
[2020-06-07] MEDS ORDERED: NS 1/2 1000 ML IV 1,000 ML IV ONE (12:24)
[2020-06-07] MEDS: K-DUR TAB 20 MEQ PO PRN (18:19)
[2020-06-07] MEDS: SNACK - Diabetic Appropriate PO SCH (20:00)
[2020-06-07] MEDS: COLACE CAP 100 MG PO SCH (21:37)
[2020-06-08] MEDS: ROBITUSSIN DM PO SCH ×6 (00:43→21:42)
[2020-06-08] MEDS ORDERED: NS 1/2 1000 ML IV 1,000 ML IV ONE (03:02)
[2020-06-08] MEDS: NS 1/2 1000 ML IV 1,000 ML IV SCH ×3 (03:07→21:00)
[2020-06-08 05:14] LABS: BASOPHILS % (AUTO) 0.1 % (0.2-1.0); HEMATOCRIT 34.8 % (36.0-47.0); LYMPHOCYTES # (AUTO) 0.8 X10^3/uL (1.3-2.9); LYMPHOCYTES % (AUTO) 4.5 % (21.0-51.0); MEAN CORPUSCULAR HEMOGLOBIN 25.9 pg (27.0-34.0); MEAN CORPUSCULAR HGB CONC 31.5 g/dL (33.0-35.0); MEAN CORPUSCULAR VOLUME 82.2 fL (80.0-100.0); MEAN PLATELET VOLUME 8.7 fL (7.4-11.0); MONOCYTES % (AUTO) 6.2 % (0.0-13.0); NEUTROPHILS # (AUTO) 15.1 x10^3/uL (2.2-4.8); NEUTROPHILS % (AUTO) 89.2 % (42.0-75.0); PLATELET COUNT 273 X10^3/uL (150.0-450.0); RED BLOOD COUNT 4.24 X10^6/uL (3.5-5.4); RED CELL DISTRIBUTION WIDTH 14.1 % (11.6-16.5); WHITE BLOOD COUNT 16.9 X10^3/uL (3.6-10.0)
[2020-06-08 05:27] LABS: ALANINE AMINOTRANSFERASE 14 Units/L (12-78); ALBUMIN 1.8 g/dL (3.4-5.0); ALKALINE PHOSPHATASE 81 Units/L (46-116); ASPARTATE AMINO TRANSFERASE 10 Units/L (15-37); BLOOD UREA NITROGEN 17 mg/dL (7-18); CALCIUM 8.5 mg/dL (8.5-10.1); CARBON DIOXIDE 28.5 mmol/L (21-32); CHLORIDE 108 mmol/L (98-107); COR CA(FOR HYPOALB) 10.3 mg/dL (8.5-10.1); COR NA(FOR HYPERGLY) 145 mmol/L (136-145); CREATININE 0.92 mg/dL (0.55-1.02); SODIUM 142 mmol/L (136-145); TOTAL PROTEIN 5.9 g/dL (6.4-8.2); eGFR NON BLACK RACES > 60 (>60)
[2020-06-08 06:02] LABS: BAND NEUTROPHILS % 5 % (0-10); PLATELET MORPHOLOGY COMMENT NORMAL (NORMAL)
[2020-06-08 06:03] LABS: HYPOCHROMASIA SLIGHT; POIKILOCYTOSIS SLIGHT
[2020-06-08] MEDS: SOLU-Medrol 125 MG VIAL IVP SCH ×3 (07:03→21:43)
[2020-06-08] MEDS: ZOSYN VIAL 3.375 GRAMS 3.375 G in NS 100 ML IV + SPIKE MINIBAG* 100 ML IV SCH (07:03)
[2020-06-08] MEDS: HumuLIN R SUBCUT PRN ×4 (07:04→21:45)
[2020-06-08] MEDS: DUONEB 0.5 MG/3 MG (3 mL) NEB SCH ×4 (08:39→20:20)
[2020-06-08] MEDS: PULMICORT NEB TX 0.5 MG NEB SCH ×2 (08:39→20:20)
[2020-06-08] MEDS ORDERED: LASIX IVP SCH (09:00)
[2020-06-08] MEDS: LEVAQUIN PREMIX IV 500 MG 500 MG/100 ML BAG IV SCH (09:44)
[2020-06-08] MEDS: PROTONIX INJ 40 MG VIAL IVP SCH ×2 (09:44→21:43)
[2020-06-08] MEDS: COZAAR PO SCH (09:45)
[2020-06-08] MEDS: TRICOR TAB 160 MG PO SCH (09:45)
[2020-06-08] MEDS: LOVENOX INJ 30 MG SYR SC SCH ×2 (09:46→21:44)
[2020-06-08] MEDS: MILK OF MAGNESIA PO SCH ×2 (10:06→21:42)
[2020-06-08] MEDS ORDERED: TORADOL 30 MG VIAL ONE (16:46)
[2020-06-08] MEDS: TORADOL 30 MG VIAL IVP ONE ×2 (17:09→17:11)
[2020-06-08] MEDS ORDERED: LEVSIN/MAALOX/LIDOC VISC PO ONE (18:07)
[2020-06-08 19:00] LABS: CREATINE KINASE MB < 1.0 ng/mL (0-4.0); TROPONIN I < 0.02 ng/mL (0-1.5)
[2020-06-08 19:40] LABS: CKMB % 0.9 % (<4); CREATINE KINASE 116 Units/L (26-192)
[2020-06-08] MEDS: SNACK - Diabetic Appropriate PO SCH (20:59)
[2020-06-08] MEDS: COLACE CAP 100 MG PO SCH (21:47)
--- NOTE | 2020-06-08 21:55 | RAD ---
HISTORYINTRACTABLE SPASMSTUDYTHORACIC SPINECOMPARISONChest radiograph, June 07, 2020TECHNIQUERadiographs of the thoracic spine, 3 views, AP, lateral and swimmer's projectionsFINDINGSVertebral body heights are maintained.Leftward curvature in the lower thoracic spine.Bridging osteophytes along the right margin of the mid to lower thoracic spine.No acute osseous abnormality.Soft tissues are unremarkable.Imaged portion of the chest is clear.Surgical clips the right upper quadrant from a prior cholecystectomy.Diffuse bilateral hazy airspace opacitiesIMPRESSION1. 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 Leftward curvature in the lower thoracic spine could be developmental or secondary to spasming.3. Diffuse bilateral airspace disease.Electronically signed by: Nicolas Aranda (Jun 08, 2020 21:53:43)
[2020-06-09] MEDS: HumuLIN R SUBCUT PRN ×6 (02:06→22:27)
[2020-06-09] MEDS: ROBITUSSIN DM PO SCH ×6 (02:24→22:04)
--- NOTE | 2020-06-09 04:49 | RAD ---
HISTORYPNEUMONIASTUDYCHEST, 1 [id number]/03/2021FINDINGSThe trachea is midline. The cardiac silhouette is unremarkable. Bilateral multifocal lung infiltrates, unchanged. Mild elevation of the right hemidiaphragm.. The bony thorax is unremarkable.IMPRESSIONBilateral multifocal lung infiltrates unchanged from 06/07/2020lectronically signed by: Nikko Madera (Jun 09, 2020 04:47:28)
[2020-06-09 05:08] LABS: ABG ALLEN TEST POS; ABG BASE EXCESS 5.6 mmol/L (-2.0-2.0); ABG HCO3 29.8 mmol/L (22-26)
[2020-06-09 05:18] LABS: HEMATOCRIT 35.2 % (36.0-47.0); HEMOGLOBIN 11.1 g/dL (12.0-16.0); LYMPHOCYTES # (AUTO) 0.5 X10^3/uL (1.3-2.9); MEAN CORPUSCULAR HGB CONC 31.6 g/dL (33.0-35.0)
[2020-06-09 05:24] LABS: BASOPHILS # (AUTO) 0.1 X10^3/uL (0.0-0.1); BASOPHILS % (AUTO) 0.8 % (0.2-1.0); LYMPHOCYTES % (AUTO) 2.7 % (21.0-51.0); MEAN CORPUSCULAR HEMOGLOBIN 25.9 pg (27.0-34.0); MEAN CORPUSCULAR VOLUME 82.1 fL (80.0-100.0); MEAN PLATELET VOLUME 9.5 fL (7.4-11.0); MONOCYTES # (AUTO) 0.7 x10^3/uL (0.3-0.8); MONOCYTES % (AUTO) 3.5 % (0.0-13.0); NEUTROPHILS # (AUTO) 17.4 x10^3/uL (2.2-4.8); PLATELET COUNT 274 X10^3/uL (150.0-450.0); RED BLOOD COUNT 4.29 X10^6/uL (3.5-5.4); RED CELL DISTRIBUTION WIDTH 14.1 % (11.6-16.5); WHITE BLOOD COUNT 18.8 X10^3/uL (3.6-10.0)
[2020-06-09 05:30] LABS: ALANINE AMINOTRANSFERASE 14 Units/L (12-78); ALBUMIN 1.9 g/dL (3.4-5.0); ALKALINE PHOSPHATASE 124 Units/L (46-116); ASPARTATE AMINO TRANSFERASE 11 Units/L (15-37); BLOOD UREA NITROGEN 22 mg/dL (7-18); CALCIUM 8.5 mg/dL (8.5-10.1); CARBON DIOXIDE 27.8 mmol/L (21-32); CHLORIDE 103 mmol/L (98-107); COR CA(FOR HYPOALB) 10.2 mg/dL (8.5-10.1); COR NA(FOR HYPERGLY) 142 mmol/L (136-145); CREATININE 1.08 mg/dL (0.55-1.02); SODIUM 137 mmol/L (136-145); eGFR NON BLACK RACES 55 (>60)
[2020-06-09 05:56] LABS: PLATELET MORPHOLOGY COMMENT NORMAL (NORMAL)
[2020-06-09] MEDS ORDERED: NS 1/2 1000 ML IV 1,000 ML IV ONE (06:23)
[2020-06-09] MEDS: NS 1/2 1000 ML IV 1,000 ML IV SCH ×2 (06:26→10:26)
[2020-06-09] MEDS: DUONEB 0.5 MG/3 MG (3 mL) NEB SCH ×4 (08:40→21:06)
[2020-06-09] MEDS: PULMICORT NEB TX 0.5 MG NEB SCH ×2 (08:40→21:06)
[2020-06-09] MEDS: COZAAR PO SCH (09:24)
[2020-06-09] MEDS: LEVAQUIN PREMIX IV 500 MG 500 MG/100 ML BAG IV SCH (09:25)
[2020-06-09] MEDS: NORVASC TAB 5 MG PO SCH (09:25)
[2020-06-09] MEDS: LOVENOX INJ 30 MG SYR SC SCH ×2 (09:25→21:48)
[2020-06-09] MEDS: PROTONIX INJ 40 MG VIAL IVP SCH ×2 (09:25→21:48)
[2020-06-09] MEDS: TRICOR TAB 160 MG PO SCH (09:26)
[2020-06-09] MEDS: SOLU-Medrol 125 MG VIAL IVP SCH ×2 (09:26→21:55)
[2020-06-09] MEDS ORDERED: HumuLIN R ONE (09:59)
[2020-06-09] MEDS: MILK OF MAGNESIA PO SCH ×2 (10:26→21:48)
[2020-06-09] MEDS ORDERED: VOLTAREN 1 % GEL MULTI DOSE TUBE ONE (10:53)
[2020-06-09] MEDS: ZOSYN VIAL 3.375 GRAMS 3.375 G in NS 100 ML IV + SPIKE MINIBAG* 100 ML IV SCH ×3 (10:58→22:06)
[2020-06-09] MEDS: OFIRMEV IV 1000 MG VIAL 1,000 MG/100 ML VIAL IV PRN ×2 (12:00→23:19)
[2020-06-09] MEDS: VOLTAREN 1 % GEL MULTI DOSE TUBE TOP SCH ×3 (12:30→22:05)
[2020-06-09] MEDS: ULTRAM PO PRN ×2 (14:11→21:50)
[2020-06-09] MEDS: ZANAFLEX PO PRN ×2 (14:11→21:51)
[2020-06-09] MEDS: SNACK - Diabetic Appropriate PO SCH (20:04)
[2020-06-09] MEDS: COLACE CAP 100 MG PO SCH (21:48)
[2020-06-09] MEDS: TUSSIONEX PENNKINETIC SUSP PO PRN (23:19)
[2020-06-10] MEDS: NS 1/2 1000 ML IV 1,000 ML IV SCH ×2 (01:59→10:49)
[2020-06-10] MEDS: ROBITUSSIN DM PO SCH ×6 (02:10→21:09)
[2020-06-10 04:53] LABS: BASOPHILS # (AUTO) 0.1 X10^3/uL (0.0-0.1); BASOPHILS % (AUTO) 0.6 % (0.2-1.0); HEMATOCRIT 36.2 % (36.0-47.0); HEMOGLOBIN 11.4 g/dL (12.0-16.0); LYMPHOCYTES # (AUTO) 0.6 X10^3/uL (1.3-2.9); LYMPHOCYTES % (AUTO) 2.9 % (21.0-51.0); MEAN CORPUSCULAR HEMOGLOBIN 25.9 pg (27.0-34.0); MEAN CORPUSCULAR HGB CONC 31.5 g/dL (33.0-35.0); MEAN CORPUSCULAR VOLUME 82.2 fL (80.0-100.0); MEAN PLATELET VOLUME 9.3 fL (7.4-11.0); MONOCYTES # (AUTO) 0.6 x10^3/uL (0.3-0.8); MONOCYTES % (AUTO) 2.8 % (0.0-13.0); NEUTROPHILS # (AUTO) 20.1 x10^3/uL (2.2-4.8); NEUTROPHILS % (AUTO) 93.7 % (42.0-75.0); PLATELET COUNT 270 X10^3/uL (150.0-450.0); RED CELL DISTRIBUTION WIDTH 14.3 % (11.6-16.5); WHITE BLOOD COUNT 21.4 X10^3/uL (3.6-10.0)
[2020-06-10 05:03] LABS: ALANINE AMINOTRANSFERASE 13 Units/L (12-78); ALBUMIN 1.9 g/dL (3.4-5.0); ALKALINE PHOSPHATASE 157 Units/L (46-116); ASPARTATE AMINO TRANSFERASE 12 Units/L (15-37); BLOOD UREA NITROGEN 21 mg/dL (7-18); CALCIUM 8.7 mg/dL (8.5-10.1); CARBON DIOXIDE 28.4 mmol/L (21-32); CHLORIDE 103 mmol/L (98-107); COR CA(FOR HYPOALB) 10.4 mg/dL (8.5-10.1); COR NA(FOR HYPERGLY) 141 mmol/L (136-145); CREATININE 0.91 mg/dL (0.55-1.02); SODIUM 137 mmol/L (136-145); TOTAL PROTEIN 6.1 g/dL (6.4-8.2); eGFR NON BLACK RACES > 60 (>60)
[2020-06-10 05:19] LABS: PLATELET MORPHOLOGY COMMENT NORMAL (NORMAL)
--- NOTE | 2020-06-10 05:37 | RAD ---
HISTORYPneumoniaSTUDYPortable AP [id number]/05/2021FINDINGSStable appearance of cardiac size and configuration. Persistent diffuse bilateral airspace disease with slight apparent progression since 1 day earlier. No complicating pneumothorax or pleural effusion.IMPRESSIONPersistent bilateral pneumonia with slight apparent interval increase since 1 day prior.Electronically signed by: MISTY HAUSER (Jun 10, 2020 05:34:25)
[2020-06-10 05:39] LABS: ABG ALLEN TEST POS; ABG BASE EXCESS 4.1 mmol/L (-2.0-2.0); ABG HCO3 28.5 mmol/L (22-26)
[2020-06-10] MEDS: ZOSYN VIAL 3.375 GRAMS 3.375 G in NS 100 ML IV + SPIKE MINIBAG* 100 ML IV SCH ×3 (06:45→21:15)
[2020-06-10] MEDS: PULMICORT NEB TX 0.5 MG NEB SCH ×2 (09:02→20:24)
[2020-06-10] MEDS: DUONEB 0.5 MG/3 MG (3 mL) NEB SCH ×4 (09:02→20:24)
[2020-06-10] MEDS: LEVAQUIN PREMIX IV 500 MG 500 MG/100 ML BAG IV SCH (09:05)
[2020-06-10] MEDS: MILK OF MAGNESIA PO SCH ×2 (09:06→20:29)
[2020-06-10] MEDS: COZAAR PO SCH (09:06)
[2020-06-10] MEDS: ZANAFLEX PO PRN ×2 (09:06→20:30)
[2020-06-10] MEDS: NORVASC TAB 5 MG PO SCH (09:06)
[2020-06-10] MEDS: SOLU-Medrol 125 MG VIAL IVP SCH ×2 (09:07→21:15)
[2020-06-10] MEDS: PROTONIX INJ 40 MG VIAL IVP SCH ×2 (09:07→20:28)
[2020-06-10] MEDS: LOVENOX INJ 30 MG SYR SC SCH ×2 (09:07→20:28)
[2020-06-10] MEDS: VOLTAREN 1 % GEL MULTI DOSE TUBE TOP SCH ×4 (09:08→21:09)
[2020-06-10] MEDS: TRICOR TAB 160 MG PO SCH (09:09)
[2020-06-10] MEDS: HumuLIN R SUBCUT PRN ×3 (09:45→21:23)
[2020-06-10] MEDS: OFIRMEV IV 1000 MG VIAL 1,000 MG/100 ML VIAL IV PRN ×2 (09:46→18:06)
[2020-06-10] MEDS ORDERED: NS 1/2 1000 ML IV 1,000 ML IV ONE (10:45)
--- NOTE | 2020-06-10 10:58 | PCM.PROG ---
Progress Note Progress Note for Day of Date of Exam: 06/10/20 Subjective Subjective: Pt is a 59 year old female admitted for COVID-19 pneumonia with hypoxia. This morning she reports improvement in her breathing. She feels really tired due to having just completed physical therapy today. She is currently on heated high flow oxygen with FiO2 65%. Labs/imaging: Wbc 21, Hgb 11.4, Plt 270, Na 141, K 4.3, Creatinine 0.91, Glucose 285, AST 12, ALT 13, ALKP 157, ABG: PH 7.45, PC02 41, P02 56, HC03 28, 02 SAT 90, FI02 75%. CXR: Persistent bilateral pneumonia with slight apparent interval increase since 1 day prior. Will continue treatment course that includes IVF, Solumedrol, Zosyn, Bronchodilators, immune supporting supplements, and supplemental O2. Wean oxygen as tolerated. Continue to monitor and follow up labs/imaging in the morning. Past Medical Family Social History Past Med/Fam/Surg Hx: No changes since H&P Allergies: Allergies epinephrine Allergy (Verified 10/04/19 23:45) lidocaine Allergy (Verified 10/04/19 23:45) Review of Systems ROS: No change since H&P Vital Signs and I&O's Vital Signs: Temperature 97.9 F Pulse Rate [Left Brachial] 80 Pulse Rate 84 Respiratory Rate 18 Blood Pressure [left] 151/80 Blood Pressure [Right Arm] 169/83 Blood Pressure [Left Arm] 144/70 Blood Pressure 143/81 O2 Sat by Pulse Oximetry 90 Intake and Output: Intake & Output 06/07/20 06/08/20 06/09/20 06/10/20 23:59 23:59 23:59 23:59 Intake Total 2942 / 2942 3994 / 3994 3347 / 3347 Output Total 1425 / 1425 3325 / 3325 425 / 425 Balance 1517 / 1517 669 / 669 2922 / 2922 Physical Exam Oriented: Normal Eyes: Normal Ear: Normal Nose: Normal Throat: Dry Respiratory: Generalized and Diminished Cardiovascular: Normal : Normal Auscultation: Bowel Sounds: Normal Tenderness: Normal Skin: Decreased Turgur Musculoskeletal: Back:Lumbar Psychiatric: Anxiety Affect: Anxious Speech Pattern: Clear and Appropriate Laboratory and Diagnostics Result Diagrams: 06/10/20 04:15 06/10/20 04:15 Labs: 06/09/20 15:45 Sputum - Expectorated Sputum Sputum Culture - Preliminary 06/09/20 15:45 Sputum - Expectorated Sputum - Final 06/07/20 14:50 Sputum - Expectorated Sputum Sputum Culture - Final 06/07/20 14:50 Sputum - Expectorated Sputum - Final 05/31/20 09:01 Blood Blood Culture - Final Staphylococcus Epidermidis 05/31/20 08:50 Blood Blood Culture - Final Staphylococcus Epidermidis 05/29/20 01:50 Blood Blood Culture - Final 05/29/20 01:10 Blood Blood Culture - Final Laboratory WBC 21.4 X10^3/uL (3.6-10.0) H 06/10/20 04:15 RBC 4.40 X10^6/uL (3.5-5.4) 06/10/20 04:15 Hgb 11.4 g/dL (12.0-16.0) L 06/10/20 04:15 Hct 36.2 % (36.0-47.0) 06/10/20 04:15 MCV 82.2 fL (80.0-100.0) 06/10/20 04:15 MCH 25.9 pg (27.0-34.0) L 06/10/20 04:15 MCHC 31.5 g/dL (33.0-35.0) L 06/10/20 04:15 RDW 14.3 % (11.6-16.5) 06/10/20 04:15 Plt Count 270 X10^3/uL (150.0-450.0) 06/10/20 04:15 Plt Count Comment Adequate (ADEQUATE) 06/10/20 04:15 MPV 9.3 fL (7.4-11.0) 06/10/20 04:15 Neut % (Auto) 93.7 % (42.0-75.0) H 06/10/20 04:15 Lymph % (Auto) 2.9 % (21.0-51.0) L 06/10/20 04:15 [place] % (Auto) 2.8 % (0.0-13.0) 06/10/20 04:15 Eos % (Auto) 0.0 % (0.9-2.9) L 06/10/20 04:15 Baso % (Auto) 0.6 % (0.2-1.0) 06/10/20 04:15 Neut # (Auto) 20.1 x10^3/uL (2.2-4.8) H 06/10/20 04:15 Lymph # (Auto) 0.6 X10^3/uL (1.3-2.9) L 06/10/20 04:15 [place] # (Auto) 0.6 x10^3/uL (0.3-0.8) 06/10/20 04:15 Eos # (Auto) 0.0 x10^3/uL (0.0-0.2) 06/10/20 04:15 Baso # (Auto) 0.1 X10^3/uL (0.0-0.1) 06/10/20 04:15 Absolute Nucleated RBC 0.0 /100WBC 06/10/20 04:15 Total Counted 100 06/10/20 04:15 Neutrophils % (Manual) 95 % (39-76) H 06/10/20 04:15 Band Neutrophils % 5 % (0-10) 06/08/20 04:39 Lymphocytes % (Manual) 5 % (13-43) L 06/10/20 04:15 Monocytes % (Manual) 2 % (4-9) L 06/09/20 04:25 Eosinophils % (Manual) 2 % (0-6) 06/03/20 04:37 Plt Morphology Comment Normal (NORMAL) 06/10/20 04:15 RBC Morphology Normal (NORMAL) 06/10/20 04:15 Hypochromasia Slight A 06/08/20 04:39 Poikilocytosis Slight A 06/08/20 04:39 D-Dimer 0.83 ug/ml (0.0-0.57) H* 06/07/20 04:57 Sample Site Rr 06/10/20 05:00 ABG pH 7.450 (7.35-7.45) 06/10/20 05:00 ABG pCO2 41.0 mmHg (35.0-45.0) 06/10/20 05:00 ABG pO2 56.0 mmHg (80.0-100.0) L 06/10/20 05:00 ABG HCO3 28.5 mmol/L (22-26) H 06/10/20 05:00 ABG O2 Saturation 90.0 % (90-100) 06/10/20 05:00 ABG Base Excess 4.1 mmol/L (-2.0-2.0) H 06/10/20 05:00 Aniket Test Pos 06/10/20 05:00 A-a Gradient 428.0 mmHg 06/10/20 05:00 FiO2 75.0 06/10/20 05:00 Blood Gas Comments Teddy well sw 06/10/20 05:00 Sodium 137 mmol/L (136-145) 06/10/20 04:15 Corrected Sodium 141 mmol/L (136-145) 06/10/20 04:15 Potassium 4.3 mmol/L (3.5-5.1) 06/10/20 04:15 Chloride 103 mmol/L (98-107) 06/10/20 04:15 Carbon Dioxide 28.4 mmol/L (21-32) 06/10/20 04:15 BUN 21 mg/dL (7-18) H 06/10/20 04:15 Creatinine 0.91 mg/dL (0.55-1.02) 06/10/20 04:15 Est GFR (MDRD) Af Amer > 60 (>60) 06/10/20 04:15 Est GFR (MDRD) Non-Af > 60 (>60) 06/10/20 04:15 Glucose 285 mg/dL (65-99) H 06/10/20 04:15 POC Glucose (mg/dL) 249 mg/dL (65-99) H 06/10/20 09:38 Lactic Acid 0.9 mmol/L (0.4-2.0) 06/02/20 08:55 Calcium 8.7 mg/dL (8.5-10.1) 06/10/20 04:15 Corrected Calcium 10.4 mg/dL (8.5-10.1) H 06/10/20 04:15 Magnesium 2.2 mg/dL (1.7-2.9) 06/07/20 04:57 Ferritin 746 ng/mL (8-252) H 05/29/20 01:55 Total Bilirubin 0.30 mg/dL (0.2-1.0) 06/10/20 04:15 AST 12 Units/L (15-37) L 06/10/20 04:15 ALT 13 Units/L (12-78) 06/10/20 04:15 Alkaline Phosphatase 157 Units/L (46-116) H 06/10/20 04:15 Creatine Kinase 116 Units/L (26-192) 06/08/20 19:11 CK-MB (CK-2) < 1.0 ng/mL (0-4.0) 06/08/20 19:11 CK/CKMB % Calc 0.9 % (<4) 06/08/20 19:11 Troponin I < 0.02 ng/mL (0-1.5) 06/08/20 19:11 C-Reactive Protein 76.90 mg/L (0-3.0) H 06/05/20 05:29 B-Natriuretic Peptide 24.3 pg/mL (0-79) 05/29/20 01:55 Total Protein 6.1 g/dL (6.4-8.2) L 06/10/20 04:15 Albumin 1.9 g/dL (3.4-5.0) L 06/10/20 04:15 Globulin 4.2 g/dL (2.5-4.5) 06/10/20 04:15 Albumin/Globulin Ratio 0.5 Ratio (1.1-2.1) L 06/10/20 04:15 Specimen Type Clean catch urine 06/01/20 17:47 Urine Color Yellow (YELLOW) 06/01/20 17:47 Urine Appearance Clear (CLEAR) 06/01/20 17:47 Urine pH 5.0 (5.0 - 8.0) 06/01/20 17:47 Ur Specific [place] 1.015 (1.000-1.030) 06/01/20 17:47 Urine Protein 2+ (NEGATIVE) 06/01/20 17:47 Urine Glucose (UA) 4+ (NEGATIVE) 06/01/20 17:47 Urine Ketones 3+ (NEGATIVE) 06/01/20 17:47 Urine Occult Blood Negative (NEGATIVE) 06/01/20 17:47 Urine Nitrite Negative (NEGATIVE) 06/01/20 17:47 Urine Bilirubin Negative (NEGATIVE) 06/01/20 17:47 Urine Acetone Large (NEGATIVE) H 06/01/20 13:50 Urine Urobilinogen Normal (NORMAL) 06/01/20 17:47 Ur Leukocyte Esterase Negative (NEGATIVE) 06/01/20 17:47 Urine RBC 3-5 /HPF (0-3) A 05/31/20 19:30 Urine WBC 0-2 /HPF (0-5) 05/31/20 19:30 Ur Squamous Epith Cells Rare /HPF (NEGATIVE) 05/31/20 19:30 Urine Bacteria 1+ /HPF (NEGATIVE) 05/31/20 19:30 Urine Yeast Many /HPF (NEGATIVE) 05/31/20 19:30 Ur Culture Indicated? No/not indicated 05/31/20 19:30 Acetone, Semi-Quant Negative (NEGATIVE) 06/04/20 05:52 SARS CoV-2 RNA Rapid MARILU Positive (NEGATIVE) A 05/29/20 02:05 Plan (1) COVID-19 virus infection: Status: Acute Plan: IV HYDRATION, IV ANTIBIOTICS BS AND BP CONTROL, DDIMER CARDIAC MONITORING, SSI IV HYDRATION, STRICT I&OS, CRP ON ADMISSION IV REMDESIVIR (2) Acute dehydration: Status: Acute (3) Hypokalemia: Status: Acute (4) Essential hypertension: Status: Chronic
[2020-06-10] MEDS: ULTRAM PO PRN ×2 (15:30→17:46)
[2020-06-10] MEDS: TUSSIONEX PENNKINETIC SUSP PO PRN (18:04)
[2020-06-10] MEDS: SNACK - Diabetic Appropriate PO SCH (20:00)
[2020-06-10] MEDS: COLACE CAP 100 MG PO SCH (20:30)
[2020-06-11] MEDS: NS 1/2 1000 ML IV 1,000 ML IV SCH ×2 (00:15→19:48)
[2020-06-11] MEDS: HumuLIN R SUBCUT PRN ×6 (01:30→20:20)
[2020-06-11] MEDS: ROBITUSSIN DM PO SCH ×7 (01:50→20:44)
[2020-06-11 05:03] LABS: BASOPHILS % (AUTO) 0.2 % (0.2-1.0); HEMATOCRIT 37.7 % (36.0-47.0); HEMOGLOBIN 11.8 g/dL (12.0-16.0); LYMPHOCYTES # (AUTO) 0.6 X10^3/uL (1.3-2.9); LYMPHOCYTES % (AUTO) 3.2 % (21.0-51.0); MEAN CORPUSCULAR HEMOGLOBIN 25.7 pg (27.0-34.0); MEAN CORPUSCULAR HGB CONC 31.2 g/dL (33.0-35.0); MEAN CORPUSCULAR VOLUME 82.4 fL (80.0-100.0); MEAN PLATELET VOLUME 9.6 fL (7.4-11.0); MONOCYTES # (AUTO) 0.6 x10^3/uL (0.3-0.8); MONOCYTES % (AUTO) 3.4 % (0.0-13.0); NEUTROPHILS # (AUTO) 16.8 x10^3/uL (2.2-4.8); NEUTROPHILS % (AUTO) 93.2 % (42.0-75.0); PLATELET COUNT 255 X10^3/uL (150.0-450.0); RED BLOOD COUNT 4.58 X10^6/uL (3.5-5.4); RED CELL DISTRIBUTION WIDTH 14.4 % (11.6-16.5)
[2020-06-11 05:16] LABS: ALANINE AMINOTRANSFERASE 16 Units/L (12-78); ALKALINE PHOSPHATASE 158 Units/L (46-116); ASPARTATE AMINO TRANSFERASE 11 Units/L (15-37); BLOOD UREA NITROGEN 21 mg/dL (7-18); CALCIUM 8.5 mg/dL (8.5-10.1); CARBON DIOXIDE 27.3 mmol/L (21-32); CHLORIDE 104 mmol/L (98-107); COR CA(FOR HYPOALB) 10.1 mg/dL (8.5-10.1); COR NA(FOR HYPERGLY) 141 mmol/L (136-145); CREATININE 0.86 mg/dL (0.55-1.02); SODIUM 137 mmol/L (136-145); TOTAL PROTEIN 5.9 g/dL (6.4-8.2); eGFR NON BLACK RACES > 60 (>60)
[2020-06-11 05:32] LABS: PLATELET MORPHOLOGY COMMENT NORMAL (NORMAL)
[2020-06-11] MEDS: ZOSYN VIAL 3.375 GRAMS 3.375 G in NS 100 ML IV + SPIKE MINIBAG* 100 ML IV SCH ×3 (05:51→21:02)
--- NOTE | 2020-06-11 06:25 | RAD ---
HISTORYPneumoniaSTUDYPortable AP [id number]/2020FINDINGSThere is no change in appearance of the chest. Heart size is stable. Similar extent and distribution of bilateral airspace disease. There is no evidence for developing pneumothorax or large pleural effusion.IMPRESSIONPersistent bilateral pneumonia. No significant improvement or progression since 1 day earlier.Electronically signed by: MISTY HAUSER (Jun 11, 2020 06:22:47)
[2020-06-11] MEDS: ULTRAM PO PRN ×2 (08:22→17:30)
[2020-06-11] MEDS: ZANAFLEX PO PRN ×2 (08:24→20:21)
[2020-06-11] MEDS: PROTONIX INJ 40 MG VIAL IVP SCH ×2 (08:35→20:20)
[2020-06-11] MEDS: LEVAQUIN PREMIX IV 500 MG 500 MG/100 ML BAG IV SCH (08:35)
[2020-06-11] MEDS: SOLU-Medrol 125 MG VIAL IVP SCH ×2 (08:36→20:48)
[2020-06-11] MEDS: MILK OF MAGNESIA PO SCH ×2 (08:36→20:43)
[2020-06-11] MEDS: COZAAR PO SCH (08:36)
[2020-06-11] MEDS: LOVENOX INJ 30 MG SYR SC SCH ×2 (08:36→20:18)
[2020-06-11] MEDS: TRICOR TAB 160 MG PO SCH (08:38)
[2020-06-11] MEDS: PULMICORT NEB TX 0.5 MG NEB SCH ×2 (09:03→21:00)
[2020-06-11] MEDS: NORVASC TAB 5 MG PO SCH (09:03)
[2020-06-11] MEDS: VOLTAREN 1 % GEL MULTI DOSE TUBE TOP SCH ×4 (09:03→20:44)
[2020-06-11] MEDS: DUONEB 0.5 MG/3 MG (3 mL) NEB SCH ×4 (09:03→21:00)
[2020-06-11] MEDS: CATAPRES-TTS-2 TD SCH (09:41)
[2020-06-11] MEDS ORDERED: ATIVAN INJ 2 MG VIAL IVP ONE (10:17)
[2020-06-11] MEDS ORDERED: ATIVAN INJ 2 MG VIAL ONE (10:22)
--- NOTE | 2020-06-11 10:25 | PCM.PROG ---
Progress Note Progress Note for Day of Date of Exam: 06/11/20 Subjective Subjective: Pt is a 59 year old female admitted for COVID-19 pneumonia with hypoxia. This morning she states she is feeling tired and having more back pain. She reports breathing has stayed the same as yesterday. She is currently on heated high flow oxygen with FiO2 60%. Labs/imaging: Wbc 18, Hgb 11.8, Plt 255, Na 137, K 4.3, Creatinine 0.86, Glucose 259, AST 11, ALT 16, ALKP 158, CXR: Persistent bilateral pneumonia. No significant improvement or progression since 1 day earlier. Sputum culture positive for yeast, will add Diflucan. Treatment course includes IVF, Solumedrol, Zosyn, Bronchodilators, immune supporting supplements, and supplemental O2, incentive spirometry. Wean oxygen as tolerated. Will add norco 5mg BID prn for breakthrough pain. Continue to monitor and follow up labs/imaging in the morning. Past Medical Family Social History Past Med/Fam/Surg Hx: No changes since H&P Allergies: Allergies epinephrine Allergy (Verified 10/04/19 23:45) lidocaine Allergy (Verified 10/04/19 23:45) Review of Systems ROS: No change since H&P Vital Signs and I&O's Vital Signs: Temperature 97.8 F Pulse Rate [Left Brachial] 80 Pulse Rate 93 Respiratory Rate 22 Blood Pressure [left] 151/80 Blood Pressure [Right Arm] 169/83 Blood Pressure [Left Arm] 144/70 Blood Pressure 142/95 O2 Sat by Pulse Oximetry 88 Intake and Output: Intake & Output 06/08/20 06/09/20 06/10/20 06/11/20 23:59 23:59 23:59 23:59 Intake Total 3994 / 3994 3347 / 3347 1929 880 / 880 Output Total 3325 / 3325 425 / 425 Balance 669 / 669 2922 / 2922 1929 880 / 880 Physical Exam Oriented: Normal Eyes: Normal Ear: Normal Nose: Normal Throat: Dry Respiratory: Generalized and Diminished Cardiovascular: Normal : Normal Auscultation: Bowel Sounds: Normal Tenderness: Normal Skin: Decreased Turgur Musculoskeletal: Back:Lumbar Psychiatric: Anxiety Affect: Anxious Speech Pattern: Clear and Appropriate Laboratory and Diagnostics Result Diagrams: 06/11/20 04:15 06/11/20 04:15 Labs: 06/09/20 08:20 Blood Blood Culture - Preliminary 06/09/20 15:45 Sputum - Expectorated Sputum Sputum Culture - Final 06/09/20 15:45 Sputum - Expectorated Sputum - Final 06/07/20 14:50 Sputum - Expectorated Sputum Sputum Culture - Final 06/07/20 14:50 Sputum - Expectorated Sputum - Final 05/31/20 09:01 Blood Blood Culture - Final Staphylococcus Epidermidis 05/31/20 08:50 Blood Blood Culture - Final Staphylococcus Epidermidis 05/29/20 01:50 Blood Blood Culture - Final 05/29/20 01:10 Blood Blood Culture - Final Laboratory WBC 18.0 X10^3/uL (3.6-10.0) H 06/11/20 04:15 RBC 4.58 X10^6/uL (3.5-5.4) 06/11/20 04:15 Hgb 11.8 g/dL (12.0-16.0) L 06/11/20 04:15 Hct 37.7 % (36.0-47.0) 06/11/20 04:15 MCV 82.4 fL (80.0-100.0) 06/11/20 04:15 MCH 25.7 pg (27.0-34.0) L 06/11/20 04:15 MCHC 31.2 g/dL (33.0-35.0) L 06/11/20 04:15 RDW 14.4 % (11.6-16.5) 06/11/20 04:15 Plt Count 255 X10^3/uL (150.0-450.0) 06/11/20 04:15 Plt Count Comment Adequate (ADEQUATE) 06/11/20 04:15 MPV 9.6 fL (7.4-11.0) 06/11/20 04:15 Neut % (Auto) 93.2 % (42.0-75.0) H 06/11/20 04:15 Lymph % (Auto) 3.2 % (21.0-51.0) L 06/11/20 04:15 [place] % (Auto) 3.4 % (0.0-13.0) 06/11/20 04:15 Eos % (Auto) 0.0 % (0.9-2.9) L 06/11/20 04:15 Baso % (Auto) 0.2 % (0.2-1.0) 06/11/20 04:15 Neut # (Auto) 16.8 x10^3/uL (2.2-4.8) H 06/11/20 04:15 Lymph # (Auto) 0.6 X10^3/uL (1.3-2.9) L 06/11/20 04:15 [place] # (Auto) 0.6 x10^3/uL (0.3-0.8) 06/11/20 04:15 Eos # (Auto) 0.0 x10^3/uL (0.0-0.2) 06/11/20 04:15 Baso # (Auto) 0.0 X10^3/uL (0.0-0.1) 06/11/20 04:15 Absolute Nucleated RBC 0.0 /100WBC 06/11/20 04:15 Total Counted 100 06/11/20 04:15 Neutrophils % (Manual) 92 % (39-76) H 06/11/20 04:15 Band Neutrophils % 5 % (0-10) 06/08/20 04:39 Lymphocytes % (Manual) 7 % (13-43) L 06/11/20 04:15 Monocytes % (Manual) 1 % (4-9) L 06/11/20 04:15 Eosinophils % (Manual) 2 % (0-6) 06/03/20 04:37 Plt Morphology Comment Normal (NORMAL) 06/11/20 04:15 RBC Morphology Normal (NORMAL) 06/11/20 04:15 Hypochromasia Slight A 06/08/20 04:39 Poikilocytosis Slight A 06/08/20 04:39 D-Dimer 0.83 ug/ml (0.0-0.57) H* 06/07/20 04:57 Sample Site Rr 06/10/20 05:00 ABG pH 7.450 (7.35-7.45) 06/10/20 05:00 ABG pCO2 41.0 mmHg (35.0-45.0) 06/10/20 05:00 ABG pO2 56.0 mmHg (80.0-100.0) L 06/10/20 05:00 ABG HCO3 28.5 mmol/L (22-26) H 06/10/20 05:00 ABG O2 Saturation 90.0 % (90-100) 06/10/20 05:00 ABG Base Excess 4.1 mmol/L (-2.0-2.0) H 06/10/20 05:00 Aniket Test Pos 06/10/20 05:00 A-a Gradient 428.0 mmHg 06/10/20 05:00 FiO2 75.0 06/10/20 05:00 Blood Gas Comments Teddy well sw 06/10/20 05:00 Sodium 137 mmol/L (136-145) 06/11/20 04:15 Corrected Sodium 141 mmol/L (136-145) 06/11/20 04:15 Potassium 4.3 mmol/L (3.5-5.1) 06/11/20 04:15 Chloride 104 mmol/L (98-107) 06/11/20 04:15 Carbon Dioxide 27.3 mmol/L (21-32) 06/11/20 04:15 BUN 21 mg/dL (7-18) H 06/11/20 04:15 Creatinine 0.86 mg/dL (0.55-1.02) 06/11/20 04:15 Est GFR (MDRD) Af Amer > 60 (>60) 06/11/20 04:15 Est GFR (MDRD) Non-Af > 60 (>60) 06/11/20 04:15 Glucose 259 mg/dL (65-99) H 06/11/20 04:15 POC Glucose (mg/dL) 266 mg/dL (65-99) H 06/11/20 08:59 Lactic Acid 0.9 mmol/L (0.4-2.0) 06/02/20 08:55 Calcium 8.5 mg/dL (8.5-10.1) 06/11/20 04:15 Corrected Calcium 10.1 mg/dL (8.5-10.1) 06/11/20 04:15 Magnesium 2.2 mg/dL (1.7-2.9) 06/07/20 04:57 Ferritin 746 ng/mL (8-252) H 05/29/20 01:55 Total Bilirubin 0.40 mg/dL (0.2-1.0) 06/11/20 04:15 AST 11 Units/L (15-37) L 06/11/20 04:15 ALT 16 Units/L (12-78) 06/11/20 04:15 Alkaline Phosphatase 158 Units/L (46-116) H 06/11/20 04:15 Creatine Kinase 116 Units/L (26-192) 06/08/20 19:11 CK-MB (CK-2) < 1.0 ng/mL (0-4.0) 06/08/20 19:11 CK/CKMB % Calc 0.9 % (<4) 06/08/20 19:11 Troponin I < 0.02 ng/mL (0-1.5) 06/08/20 19:11 C-Reactive Protein 76.90 mg/L (0-3.0) H 06/05/20 05:29 B-Natriuretic Peptide 24.3 pg/mL (0-79) 05/29/20 01:55 Total Protein 5.9 g/dL (6.4-8.2) L 06/11/20 04:15 Albumin 2.0 g/dL (3.4-5.0) L 06/11/20 04:15 Globulin 3.9 g/dL (2.5-4.5) 06/11/20 04:15 Albumin/Globulin Ratio 0.5 Ratio (1.1-2.1) L 06/11/20 04:15 Specimen Type Clean catch urine 06/01/20 17:47 Urine Color Yellow (YELLOW) 06/01/20 17:47 Urine Appearance Clear (CLEAR) 06/01/20 17:47 Urine pH 5.0 (5.0 - 8.0) 06/01/20 17:47 Ur Specific [place] 1.015 (1.000-1.030) 06/01/20 17:47 Urine Protein 2+ (NEGATIVE) 06/01/20 17:47 Urine Glucose (UA) 4+ (NEGATIVE) 06/01/20 17:47 Urine Ketones 3+ (NEGATIVE) 06/01/20 17:47 Urine Occult Blood Negative (NEGATIVE) 06/01/20 17:47 Urine Nitrite Negative (NEGATIVE) 06/01/20 17:47 Urine Bilirubin Negative (NEGATIVE) 06/01/20 17:47 Urine Acetone Large (NEGATIVE) H 06/01/20 13:50 Urine Urobilinogen Normal (NORMAL) 06/01/20 17:47 Ur Leukocyte Esterase Negative (NEGATIVE) 06/01/20 17:47 Urine RBC 3-5 /HPF (0-3) A 05/31/20 19:30 Urine WBC 0-2 /HPF (0-5) 05/31/20 19:30 Ur Squamous Epith Cells Rare /HPF (NEGATIVE) 05/31/20 19:30 Urine Bacteria 1+ /HPF (NEGATIVE) 05/31/20 19:30 Urine Yeast Many /HPF (NEGATIVE) 05/31/20 19:30 Ur Culture Indicated? No/not indicated 05/31/20 19:30 Acetone, Semi-Quant Negative (NEGATIVE) 06/04/20 05:52 SARS CoV-2 RNA Rapid MARILU Positive (NEGATIVE) A 05/29/20 02:05 Plan (1) COVID-19 virus infection: Status: Acute Plan: IV HYDRATION, IV ANTIBIOTICS BS AND BP CONTROL, DDIMER CARDIAC MONITORING, SSI IV HYDRATION, STRICT I&OS, CRP ON ADMISSION IV REMDESIVIR (2) Acute dehydration: Status: Acute (3) Hypokalemia: Status: Acute (4) Essential hypertension: Status: Chronic
[2020-06-11] MEDS ORDERED: DIFLUCAN 100 MG IV (MIX by PHARMACY)* 100 MG/50 ML BAG IV SCH (11:00)
[2020-06-11] MEDS: DIFLUCAN 200 MG IV PREMIX* 200 MG/100 ML BAG IV SCH (12:29)
[2020-06-11] MEDS: NORCO 5/325 MG TAB PO PRN (12:29)
[2020-06-11] MEDS: SNACK - Diabetic Appropriate PO SCH (20:00)
[2020-06-11] MEDS: COLACE CAP 100 MG PO SCH (20:43)
[2020-06-12] MEDS ORDERED: NS 1/2 1000 ML IV 1,000 ML IV ONE (01:23)
[2020-06-12] MEDS: ROBITUSSIN DM PO SCH ×6 (01:52→20:34)
[2020-06-12] MEDS: NS 1/2 1000 ML IV 1,000 ML IV SCH ×2 (02:57→17:21)
[2020-06-12 05:03] LABS: BASOPHILS % (AUTO) 0.2 % (0.2-1.0); HEMATOCRIT 36.2 % (36.0-47.0); HEMOGLOBIN 11.4 g/dL (12.0-16.0); LYMPHOCYTES # (AUTO) 0.6 X10^3/uL (1.3-2.9); LYMPHOCYTES % (AUTO) 3.9 % (21.0-51.0); MEAN CORPUSCULAR HEMOGLOBIN 25.8 pg (27.0-34.0); MEAN CORPUSCULAR HGB CONC 31.4 g/dL (33.0-35.0); MEAN CORPUSCULAR VOLUME 82.1 fL (80.0-100.0); MEAN PLATELET VOLUME 9.9 fL (7.4-11.0); MONOCYTES # (AUTO) 0.5 x10^3/uL (0.3-0.8); MONOCYTES % (AUTO) 2.9 % (0.0-13.0); NEUTROPHILS # (AUTO) 15.2 x10^3/uL (2.2-4.8); PLATELET COUNT 245 X10^3/uL (150.0-450.0); RED BLOOD COUNT 4.41 X10^6/uL (3.5-5.4); RED CELL DISTRIBUTION WIDTH 14.2 % (11.6-16.5); WHITE BLOOD COUNT 16.4 X10^3/uL (3.6-10.0)
[2020-06-12 05:25] LABS: ALANINE AMINOTRANSFERASE 16 Units/L (12-78); ALBUMIN 1.9 g/dL (3.4-5.0); ALKALINE PHOSPHATASE 137 Units/L (46-116); ASPARTATE AMINO TRANSFERASE 20 Units/L (15-37); BLOOD UREA NITROGEN 21 mg/dL (7-18); CALCIUM 8.1 mg/dL (8.5-10.1); CARBON DIOXIDE 26.2 mmol/L (21-32); CHLORIDE 103 mmol/L (98-107); COR CA(FOR HYPOALB) 9.8 mg/dL (8.5-10.1); COR NA(FOR HYPERGLY) 140 mmol/L (136-145); CREATININE 0.79 mg/dL (0.55-1.02); SODIUM 136 mmol/L (136-145); TOTAL PROTEIN 5.7 g/dL (6.4-8.2); eGFR NON BLACK RACES > 60 (>60)
[2020-06-12 05:29] LABS: PLATELET MORPHOLOGY COMMENT NORMAL (NORMAL)
[2020-06-12] MEDS: ZOSYN VIAL 3.375 GRAMS 3.375 G in NS 100 ML IV + SPIKE MINIBAG* 100 ML IV SCH ×3 (06:30→21:29)
[2020-06-12] MEDS: HumuLIN R SUBCUT PRN ×4 (06:30→21:46)
[2020-06-12] MEDS: LEVAQUIN PREMIX IV 500 MG 500 MG/100 ML BAG IV SCH (08:40)
[2020-06-12] MEDS: DUONEB 0.5 MG/3 MG (3 mL) NEB SCH ×4 (08:46→21:02)
[2020-06-12] MEDS: PULMICORT NEB TX 0.5 MG NEB SCH ×2 (08:46→21:02)
[2020-06-12] MEDS: TRICOR TAB 160 MG PO SCH (09:43)
[2020-06-12] MEDS: COZAAR PO SCH (09:43)
[2020-06-12] MEDS: PROTONIX INJ 40 MG VIAL IVP SCH ×2 (09:43→20:34)
[2020-06-12] MEDS: MILK OF MAGNESIA PO SCH ×3 (09:44→21:28)
[2020-06-12] MEDS: NORVASC TAB 5 MG PO SCH (09:44)
[2020-06-12] MEDS: SOLU-Medrol 125 MG VIAL IVP SCH ×2 (09:45→20:33)
[2020-06-12] MEDS: LOVENOX INJ 30 MG SYR SC SCH ×2 (09:45→20:34)
[2020-06-12] MEDS: VOLTAREN 1 % GEL MULTI DOSE TUBE TOP SCH ×4 (09:45→20:35)
[2020-06-12] MEDS: DIFLUCAN 200 MG IV PREMIX* 200 MG/100 ML BAG IV SCH (09:45)
[2020-06-12] MEDS: NORCO 5/325 MG TAB PO PRN (13:05)
[2020-06-12] MEDS: TUSSIONEX PENNKINETIC SUSP PO PRN (18:14)
[2020-06-12] MEDS: ZANAFLEX PO PRN (19:47)
[2020-06-12] MEDS: ULTRAM PO PRN (19:47)
[2020-06-12] MEDS: COLACE CAP 100 MG PO SCH ×2 (20:34→21:28)
[2020-06-12] MEDS: SNACK - Diabetic Appropriate PO SCH (21:27)
[2020-06-12] MEDS: OFIRMEV IV 1000 MG VIAL 1,000 MG/100 ML VIAL IV PRN (21:27)
[2020-06-13] MEDS: ROBITUSSIN DM PO SCH ×6 (01:04→20:52)
[2020-06-13] MEDS ORDERED: NS 1/2 1000 ML IV 1,000 ML IV ONE (03:19)
[2020-06-13] MEDS: ULTRAM PO PRN ×2 (03:30→17:29)
[2020-06-13] MEDS: ZANAFLEX PO PRN ×2 (03:30→17:30)
[2020-06-13] MEDS: NS 1/2 1000 ML IV 1,000 ML IV SCH ×2 (03:39→05:28)
[2020-06-13 05:06] LABS: ABG ALLEN TEST POS; ABG BASE EXCESS 3.9 mmol/L (-2.0-2.0); ABG HCO3 28.5 mmol/L (22-26)
[2020-06-13] MEDS: ZOSYN VIAL 3.375 GRAMS 3.375 G in NS 100 ML IV + SPIKE MINIBAG* 100 ML IV SCH ×3 (06:00→21:18)
[2020-06-13 06:11] LABS: BASOPHILS % (AUTO) 0.3 % (0.2-1.0); HEMATOCRIT 34.6 % (36.0-47.0); HEMOGLOBIN 10.9 g/dL (12.0-16.0); LYMPHOCYTES # (AUTO) 0.6 X10^3/uL (1.3-2.9); LYMPHOCYTES % (AUTO) 4.7 % (21.0-51.0); MEAN CORPUSCULAR HEMOGLOBIN 25.9 pg (27.0-34.0); MEAN CORPUSCULAR HGB CONC 31.7 g/dL (33.0-35.0); MEAN CORPUSCULAR VOLUME 81.7 fL (80.0-100.0); MEAN PLATELET VOLUME 9.8 fL (7.4-11.0); MONOCYTES # (AUTO) 0.5 x10^3/uL (0.3-0.8); NEUTROPHILS # (AUTO) 12.4 x10^3/uL (2.2-4.8); PLATELET COUNT 234 X10^3/uL (150.0-450.0); RED BLOOD COUNT 4.23 X10^6/uL (3.5-5.4); RED CELL DISTRIBUTION WIDTH 14.2 % (11.6-16.5); WHITE BLOOD COUNT 13.7 X10^3/uL (3.6-10.0)
[2020-06-13 06:33] LABS: ALANINE AMINOTRANSFERASE 17 Units/L (12-78); ALKALINE PHOSPHATASE 119 Units/L (46-116); ASPARTATE AMINO TRANSFERASE 12 Units/L (15-37); BLOOD UREA NITROGEN 21 mg/dL (7-18); CALCIUM 8.5 mg/dL (8.5-10.1); CHLORIDE 103 mmol/L (98-107); COR CA(FOR HYPOALB) 10.1 mg/dL (8.5-10.1); COR NA(FOR HYPERGLY) 141 mmol/L (136-145); CREATININE 0.86 mg/dL (0.55-1.02); SODIUM 137 mmol/L (136-145); TOTAL PROTEIN 5.5 g/dL (6.4-8.2); eGFR NON BLACK RACES > 60 (>60)
--- NOTE | 2020-06-13 06:35 | RAD ---
HISTORYCOVID+STUDYCHEST, 1 [id number]/07/2021.TECHNIQUEAP view of the chestFINDINGSCardiac and mediastinal contours are within normal limits. No significant change in bilateral airspace and interstitial opacities. No definite pleural effusion or pneumothorax.IMPRESSIONNo significant change.Electronically signed by: Taras Mcnulty (Jun 13, 2020 06:33:57)
[2020-06-13 07:08] LABS: MYELOCYTES % 1; PLATELET MORPHOLOGY COMMENT NORMAL (NORMAL)
[2020-06-13] MEDS: DUONEB 0.5 MG/3 MG (3 mL) NEB SCH ×4 (09:10→21:07)
[2020-06-13] MEDS: PULMICORT NEB TX 0.5 MG NEB SCH ×2 (09:10→21:07)
[2020-06-13] MEDS: DIFLUCAN 200 MG IV PREMIX* 200 MG/100 ML BAG IV SCH (09:17)
[2020-06-13] MEDS: SOLU-Medrol 125 MG VIAL IVP SCH ×2 (09:19→20:51)
[2020-06-13] MEDS: PROTONIX INJ 40 MG VIAL IVP SCH ×2 (09:19→20:52)
[2020-06-13] MEDS: LOVENOX INJ 30 MG SYR SC SCH ×2 (09:19→20:52)
[2020-06-13] MEDS: NORVASC TAB 5 MG PO SCH (09:20)
[2020-06-13] MEDS: COZAAR PO SCH (09:20)
[2020-06-13] MEDS: MILK OF MAGNESIA PO SCH ×2 (09:21→20:52)
[2020-06-13] MEDS: VOLTAREN 1 % GEL MULTI DOSE TUBE TOP SCH ×4 (09:21→20:52)
[2020-06-13] MEDS: TRICOR TAB 160 MG PO SCH (09:22)
[2020-06-13] MEDS: HumuLIN R SUBCUT PRN ×4 (09:42→21:00)
[2020-06-13] MEDS: LEVAQUIN PREMIX IV 500 MG 500 MG/100 ML BAG IV SCH (10:41)
[2020-06-13] MEDS: SNACK - Diabetic Appropriate PO SCH (20:51)
[2020-06-13] MEDS: COLACE CAP 100 MG PO SCH (20:52)
[2020-06-14] MEDS: ZANAFLEX PO PRN ×3 (00:30→17:00)
[2020-06-14] MEDS: TUSSIONEX PENNKINETIC SUSP PO PRN (00:30)
[2020-06-14] MEDS: ULTRAM PO PRN ×3 (00:30→17:00)
[2020-06-14] MEDS: ROBITUSSIN DM PO SCH ×6 (03:05→20:46)
[2020-06-14] MEDS ORDERED: NS 1/2 1000 ML IV 1,000 ML IV ONE ×2 (03:34→20:18)
[2020-06-14] MEDS: NS 1/2 1000 ML IV 1,000 ML IV SCH ×3 (04:00→19:22)
[2020-06-14 05:12] LABS: BASOPHILS # (AUTO) 0.1 X10^3/uL (0.0-0.1); BASOPHILS % (AUTO) 0.5 % (0.2-1.0); HEMATOCRIT 34.6 % (36.0-47.0); HEMOGLOBIN 10.9 g/dL (12.0-16.0); LYMPHOCYTES # (AUTO) 0.6 X10^3/uL (1.3-2.9); LYMPHOCYTES % (AUTO) 4.2 % (21.0-51.0); MEAN CORPUSCULAR HEMOGLOBIN 25.9 pg (27.0-34.0); MEAN CORPUSCULAR HGB CONC 31.5 g/dL (33.0-35.0); MEAN CORPUSCULAR VOLUME 82.2 fL (80.0-100.0); MEAN PLATELET VOLUME 9.8 fL (7.4-11.0); MONOCYTES # (AUTO) 0.4 x10^3/uL (0.3-0.8); MONOCYTES % (AUTO) 2.8 % (0.0-13.0); NEUTROPHILS # (AUTO) 12.7 x10^3/uL (2.2-4.8); NEUTROPHILS % (AUTO) 92.5 % (42.0-75.0); PLATELET COUNT 224 X10^3/uL (150.0-450.0); RED BLOOD COUNT 4.21 X10^6/uL (3.5-5.4); RED CELL DISTRIBUTION WIDTH 14.1 % (11.6-16.5); WHITE BLOOD COUNT 13.7 X10^3/uL (3.6-10.0)
[2020-06-14 05:18] LABS: ALANINE AMINOTRANSFERASE 16 Units/L (12-78); ALKALINE PHOSPHATASE 105 Units/L (46-116); ASPARTATE AMINO TRANSFERASE 11 Units/L (15-37); BLOOD UREA NITROGEN 21 mg/dL (7-18); CALCIUM 8.5 mg/dL (8.5-10.1); CARBON DIOXIDE 27.5 mmol/L (21-32); CHLORIDE 104 mmol/L (98-107); COR CA(FOR HYPOALB) 10.1 mg/dL (8.5-10.1); COR NA(FOR HYPERGLY) 141 mmol/L (136-145); CREATININE 0.83 mg/dL (0.55-1.02); SODIUM 136 mmol/L (136-145); TOTAL PROTEIN 5.4 g/dL (6.4-8.2); eGFR NON BLACK RACES > 60 (>60)
[2020-06-14 05:37] LABS: PLATELET MORPHOLOGY COMMENT NORMAL (NORMAL)
[2020-06-14] MEDS: ZOSYN VIAL 3.375 GRAMS 3.375 G in NS 100 ML IV + SPIKE MINIBAG* 100 ML IV SCH ×3 (06:00→21:20)
[2020-06-14] MEDS: HumuLIN R SUBCUT PRN ×5 (06:33→20:47)
[2020-06-14] MEDS: DUONEB 0.5 MG/3 MG (3 mL) NEB SCH ×4 (08:54→20:30)
[2020-06-14] MEDS: PULMICORT NEB TX 0.5 MG NEB SCH ×2 (08:54→20:30)
[2020-06-14] MEDS: PROTONIX INJ 40 MG VIAL IVP SCH ×2 (09:01→20:45)
[2020-06-14] MEDS: DIFLUCAN 200 MG IV PREMIX* 200 MG/100 ML BAG IV SCH (09:01)
[2020-06-14] MEDS: SOLU-Medrol 125 MG VIAL IVP SCH ×2 (09:01→20:45)
[2020-06-14] MEDS: LEVAQUIN PREMIX IV 500 MG 500 MG/100 ML BAG IV SCH (09:01)
[2020-06-14] MEDS: COZAAR PO SCH (09:02)
[2020-06-14] MEDS: TRICOR TAB 160 MG PO SCH (09:03)
[2020-06-14] MEDS: NORVASC TAB 5 MG PO SCH (09:03)
[2020-06-14] MEDS: MILK OF MAGNESIA PO SCH ×2 (09:05→20:44)
[2020-06-14] MEDS: LOVENOX INJ 30 MG SYR SC SCH ×2 (09:07→20:45)
[2020-06-14] MEDS: VOLTAREN 1 % GEL MULTI DOSE TUBE TOP SCH ×4 (09:07→20:46)
[2020-06-14] MEDS: SNACK - Diabetic Appropriate PO SCH (20:43)
[2020-06-14] MEDS: COLACE CAP 100 MG PO SCH (20:44)
[2020-06-15] MEDS: HumuLIN R SUBCUT PRN ×5 (01:33→21:17)
[2020-06-15] MEDS: NS 1/2 1000 ML IV 1,000 ML IV SCH ×3 (01:34→22:45)
[2020-06-15] MEDS: ULTRAM PO PRN ×2 (02:10→09:17)
[2020-06-15] MEDS: ZANAFLEX PO PRN ×2 (02:11→09:18)
[2020-06-15] MEDS: ROBITUSSIN DM PO SCH ×6 (03:14→21:16)
[2020-06-15] MEDS: ZOSYN VIAL 3.375 GRAMS 3.375 G in NS 100 ML IV + SPIKE MINIBAG* 100 ML IV SCH ×3 (05:07→21:16)
[2020-06-15 05:08] LABS: ABG BASE EXCESS 6.2 mmol/L (-2.0-2.0); ABG HCO3 29.5 mmol/L (22-26)
[2020-06-15 05:09] LABS: ABG ALLEN TEST POS
[2020-06-15 05:22] LABS: BASOPHILS % (AUTO) 0.3 % (0.2-1.0); HEMATOCRIT 38.4 % (36.0-47.0); HEMOGLOBIN 12.2 g/dL (12.0-16.0); LYMPHOCYTES # (AUTO) 0.6 X10^3/uL (1.3-2.9); LYMPHOCYTES % (AUTO) 4.1 % (21.0-51.0); MEAN CORPUSCULAR HEMOGLOBIN 26.2 pg (27.0-34.0); MEAN CORPUSCULAR HGB CONC 31.8 g/dL (33.0-35.0); MEAN CORPUSCULAR VOLUME 82.6 fL (80.0-100.0); MEAN PLATELET VOLUME 9.9 fL (7.4-11.0); MONOCYTES # (AUTO) 0.6 x10^3/uL (0.3-0.8); MONOCYTES % (AUTO) 4.2 % (0.0-13.0); NEUTROPHILS # (AUTO) 12.4 x10^3/uL (2.2-4.8); NEUTROPHILS % (AUTO) 91.4 % (42.0-75.0); PLATELET COUNT 259 X10^3/uL (150.0-450.0); RED BLOOD COUNT 4.64 X10^6/uL (3.5-5.4); RED CELL DISTRIBUTION WIDTH 14.3 % (11.6-16.5); WHITE BLOOD COUNT 13.6 X10^3/uL (3.6-10.0)
[2020-06-15 05:29] LABS: ALANINE AMINOTRANSFERASE 16 Units/L (12-78); ALBUMIN 2.2 g/dL (3.4-5.0); ALKALINE PHOSPHATASE 102 Units/L (46-116); ASPARTATE AMINO TRANSFERASE 16 Units/L (15-37); BLOOD UREA NITROGEN 19 mg/dL (7-18); CALCIUM 8.7 mg/dL (8.5-10.1); CARBON DIOXIDE 27.7 mmol/L (21-32); CHLORIDE 104 mmol/L (98-107); COR CA(FOR HYPOALB) 10.1 mg/dL (8.5-10.1); COR NA(FOR HYPERGLY) 138 mmol/L (136-145); CREATININE 0.76 mg/dL (0.55-1.02); SODIUM 137 mmol/L (136-145); eGFR NON BLACK RACES > 60 (>60)
[2020-06-15 05:52] LABS: PLATELET MORPHOLOGY COMMENT NORMAL (NORMAL)
--- NOTE | 2020-06-15 06:51 | RAD ---
HISTORYFollow-up pneumoniaSTUDYChest AP [id number]/09/2021FINDINGSThe heart is within normal limits in size. Diffuse bilateral ground-glass, interstitial and alveolar infiltrates are present not significantly changed in degree or distribution from the prior examination. No pneumothoraces or pleural effusions are identified. Bony thorax is unremarkable.IMPRESSIONNo change diffuse bilateral interstitial, ground-glass and alveolar infiltrates when compared with the prior examinationElectronically signed by: JANELLE KEITH (Jun 15, 2020 06:48:21)
[2020-06-15] MEDS: PROTONIX INJ 40 MG VIAL IVP SCH ×2 (08:06→21:15)
[2020-06-15] MEDS: LEVAQUIN PREMIX IV 500 MG 500 MG/100 ML BAG IV SCH (08:06)
[2020-06-15] MEDS: DIFLUCAN 200 MG IV PREMIX* 200 MG/100 ML BAG IV SCH (08:07)
[2020-06-15] MEDS: SOLU-Medrol 125 MG VIAL IVP SCH ×2 (08:07→21:15)
[2020-06-15] MEDS: TRICOR TAB 160 MG PO SCH (08:08)
[2020-06-15] MEDS: COZAAR PO SCH (08:08)
[2020-06-15] MEDS: NORVASC TAB 5 MG PO SCH (08:09)
[2020-06-15] MEDS: LOVENOX INJ 30 MG SYR SC SCH ×2 (08:09→21:14)
[2020-06-15] MEDS: VOLTAREN 1 % GEL MULTI DOSE TUBE TOP SCH ×3 (08:54→17:25)
[2020-06-15] MEDS: MILK OF MAGNESIA PO SCH ×2 (08:54→21:13)
[2020-06-15] MEDS: DUONEB 0.5 MG/3 MG (3 mL) NEB SCH ×4 (08:56→21:31)
[2020-06-15] MEDS: PULMICORT NEB TX 0.5 MG NEB SCH ×2 (08:56→21:31)
[2020-06-15] MEDS ORDERED: NS 1/2 1000 ML IV 1,000 ML IV ONE (19:28)
[2020-06-15] MEDS: COLACE CAP 100 MG PO SCH (21:13)
[2020-06-15] MEDS: SNACK - Diabetic Appropriate PO SCH (21:13)
[2020-06-16] MEDS: NS 1/2 1000 ML IV 1,000 ML IV SCH ×3 (00:05→23:59)
[2020-06-16] MEDS: VOLTAREN 1 % GEL MULTI DOSE TUBE TOP SCH ×5 (01:25→21:00)
[2020-06-16] MEDS: ROBITUSSIN DM PO SCH ×6 (01:25→21:00)
[2020-06-16] MEDS: HumuLIN R SUBCUT PRN ×6 (01:30→21:11)
[2020-06-16 05:10] LABS: ABG ALLEN TEST POS; ABG HCO3 27.4 mmol/L (22-26)
[2020-06-16] MEDS: ZOSYN VIAL 3.375 GRAMS 3.375 G in NS 100 ML IV + SPIKE MINIBAG* 100 ML IV SCH ×3 (05:15→22:30)
[2020-06-16 06:07] LABS: BASOPHILS % (AUTO) 0.3 % (0.2-1.0); HEMATOCRIT 37.9 % (36.0-47.0); HEMOGLOBIN 12.2 g/dL (12.0-16.0); LYMPHOCYTES # (AUTO) 0.5 X10^3/uL (1.3-2.9); LYMPHOCYTES % (AUTO) 3.9 % (21.0-51.0); MEAN CORPUSCULAR HEMOGLOBIN 26.5 pg (27.0-34.0); MEAN CORPUSCULAR HGB CONC 32.2 g/dL (33.0-35.0); MEAN CORPUSCULAR VOLUME 82.4 fL (80.0-100.0); MEAN PLATELET VOLUME 9.7 fL (7.4-11.0); MONOCYTES # (AUTO) 0.4 x10^3/uL (0.3-0.8); MONOCYTES % (AUTO) 3.3 % (0.0-13.0); NEUTROPHILS # (AUTO) 11.6 x10^3/uL (2.2-4.8); NEUTROPHILS % (AUTO) 92.5 % (42.0-75.0); PLATELET COUNT 252 X10^3/uL (150.0-450.0); RED CELL DISTRIBUTION WIDTH 14.2 % (11.6-16.5); WHITE BLOOD COUNT 12.5 X10^3/uL (3.6-10.0)
[2020-06-16 06:18] LABS: ALANINE AMINOTRANSFERASE 19 Units/L (12-78); ALBUMIN 2.4 g/dL (3.4-5.0); ALKALINE PHOSPHATASE 97 Units/L (46-116); ASPARTATE AMINO TRANSFERASE 12 Units/L (15-37); BLOOD UREA NITROGEN 21 mg/dL (7-18); CALCIUM 9.1 mg/dL (8.5-10.1); CARBON DIOXIDE 25.6 mmol/L (21-32); CHLORIDE 105 mmol/L (98-107); COR CA(FOR HYPOALB) 10.4 mg/dL (8.5-10.1); COR NA(FOR HYPERGLY) 141 mmol/L (136-145); CREATININE 0.91 mg/dL (0.55-1.02); SODIUM 138 mmol/L (136-145); TOTAL PROTEIN 6.3 g/dL (6.4-8.2); eGFR NON BLACK RACES > 60 (>60)
[2020-06-16 07:17] LABS: PLATELET MORPHOLOGY COMMENT NORMAL (NORMAL)
[2020-06-16] MEDS: LEVAQUIN PREMIX IV 500 MG 500 MG/100 ML BAG IV SCH (08:03)
[2020-06-16] MEDS: LOVENOX INJ 30 MG SYR SC SCH ×2 (08:03→21:09)
[2020-06-16] MEDS: ZANAFLEX PO PRN ×2 (08:04→21:11)
[2020-06-16] MEDS: DIFLUCAN 200 MG IV PREMIX* 200 MG/100 ML BAG IV SCH (08:04)
[2020-06-16] MEDS: SOLU-Medrol 125 MG VIAL IVP SCH ×2 (08:04→21:09)
[2020-06-16] MEDS: COZAAR PO SCH (08:05)
[2020-06-16] MEDS: TRICOR TAB 160 MG PO SCH (08:05)
[2020-06-16] MEDS: NORVASC TAB 5 MG PO SCH (08:05)
[2020-06-16] MEDS: ULTRAM PO PRN ×2 (08:06→21:10)
[2020-06-16] MEDS: PROTONIX INJ 40 MG VIAL IVP SCH ×2 (08:06→21:10)
[2020-06-16] MEDS: MILK OF MAGNESIA PO SCH ×2 (08:54→21:09)
[2020-06-16] MEDS: DUONEB 0.5 MG/3 MG (3 mL) NEB SCH ×4 (09:20→20:40)
[2020-06-16] MEDS: PULMICORT NEB TX 0.5 MG NEB SCH ×2 (09:20→20:40)
--- NOTE | 2020-06-16 13:56 | PCM.PROG ---
Progress Note - Progress Note for Day of Date of Exam: 06/16/20 - Subjective Subjective: The patient is a pleasant 59-year-old black female who is currently being treated for COVID-19 pneumonia and hypoxia. Since admission, the patient has been on IV antibiotics, respiratory therapy, supplemental oxygen, along with corticosteroid therapy. She has completed five days of IV Remdesivir. She has continued to require high oxygen concentration supplementation with heated high flow. We have worked aggressively with her to wean her down. She was on heated high flow this morning with sats between 88-91%. Her ABG that was obtained showed a PO2 of 58 She was on 55 FIO2 and today she dropped down to 35 and she was sating anywhere from 88-93%. On physical exam this morning her blood p ressure was stable at 134/74. She has been afebrile. The patients heart rate has increased a little bit since decreasing her oxygen supplementation. Heart rate has been in the 90-100. Appears to be sinus rhythm with occasional sinus tachycardia. She continues with diffuse ground glass opacities bilaterally. The patient has had some persistent mid-back pain with her x-ray revealing some curvature consistent with her history of scoliosis and suggesting possible secondary muscle spasms. She has been on as needed Tramadol and Tizanidine which she states helps when she has those episodes. She does have as needed [place] ordered and I dont think that she has been taking that. I think that she has just been doing the as needed Tramadol. The patient denies any nausea and vomiting or diarrhea. She states that she does not feel any chest pain or shortness of breath at rest just on exertion. The patient continues to use bedside commode with assistance. She denies any dizziness, headaches, or vision changes. - Past Medical Family Social History Past Med/Fam/Surg Hx: No changes since H&P Allergies: Allergies epinephrine Allergy (Verified 10/04/19 23:45) lidocaine Allergy (Verified 10/04/19 23:45) - Review of Systems ROS: No change since H&P - Vital Signs and I&O's Vital Signs: Temperature 97.8 F Pulse Rate [Left Brachial] 80 Pulse Rate 94 Respiratory Rate 35 Blood Pressure [left] 151/80 Blood Pressure [Right Arm] 169/83 Blood Pressure [Left Arm] 144/70 Blood Pressure 160/100 O2 Sat by Pulse Oximetry 88 Intake and Output: Intake & Output 06/14/20 06/15/20 06/16/20 06/17/20 11:59 11:59 11:59 11:59 Intake Total 3035 / 3035 3294 / 3294 2887 / 2887 Balance 3035 / 3035 3294 / 3294 2887 / 2887 - Physical Exam Oriented: Normal Eyes: Normal Ear: Normal Nose: Normal Throat: Dry Respiratory: Generalized, Diminished Cardiovascular: Normal : Normal Auscultation: Bowel Sounds: Normal Tenderness: Normal Skin: Decreased Turgur Musculoskeletal: Back:Lumbar Psychiatric: Anxiety Affect: Anxious Speech Pattern: Clear, Appropriate - Laboratory and Diagnostics Result Diagrams: 06/16/20 04:50 06/16/20 04:50 Labs: 06/09/20 08:20 Blood Blood Culture - Final 06/09/20 08:33 Blood Blood Culture - Final 06/09/20 15:45 Sputum - Expectorated Sputum Sputum Culture - Final 06/09/20 15:45 Sputum - Expectorated Sputum - Final 06/07/20 14:50 Sputum - Expectorated Sputum Sputum Culture - Final 06/07/20 14:50 Sputum - Expectorated Sputum - Final 05/31/20 09:01 Blood Blood Culture - Final Staphylococcus Epidermidis 05/31/20 08:50 Blood Blood Culture - Final Staphylococcus Epidermidis 05/29/20 01:50 Blood Blood Culture - Final 05/29/20 01:10 Blood Blood Culture - Final Laboratory WBC 12.5 X10^3/uL (3.6-10.0) H 06/16/20 04:50 RBC 4.60 X10^6/uL (3.5-5.4) 06/16/20 04:50 Hgb 12.2 g/dL (12.0-16.0) 06/16/20 04:50 Hct 37.9 % (36.0-47.0) 06/16/20 04:50 MCV 82.4 fL (80.0-100.0) 06/16/20 04:50 MCH 26.5 pg (27.0-34.0) L 06/16/20 04:50 MCHC 32.2 g/dL (33.0-35.0) L 06/16/20 04:50 RDW 14.2 % (11.6-16.5) 06/16/20 04:50 Plt Count 252 X10^3/uL (150.0-450.0) 06/16/20 04:50 Plt Count Comment Adequate (ADEQUATE) 06/16/20 04:50 MPV 9.7 fL (7.4-11.0) 06/16/20 04:50 Neut % (Auto) 92.5 % (42.0-75.0) H 06/16/20 04:50 Lymph % (Auto) 3.9 % (21.0-51.0) L 06/16/20 04:50 [place] % (Auto) 3.3 % (0.0-13.0) 06/16/20 04:50 Eos % (Auto) 0.0 % (0.9-2.9) L 06/16/20 04:50 Baso % (Auto) 0.3 % (0.2-1.0) 06/16/20 04:50 Neut # (Auto) 11.6 x10^3/uL (2.2-4.8) H 06/16/20 04:50 Lymph # (Auto) 0.5 X10^3/uL (1.3-2.9) L 06/16/20 04:50 Reeves # (Auto) 0.4 x10^3/uL (0.3-0.8) 06/16/20 04:50 Eos # (Auto) 0.0 x10^3/uL (0.0-0.2) 06/16/20 04:50 Baso # (Auto) 0.0 X10^3/uL (0.0-0.1) 06/16/20 04:50 Absolute Nucleated RBC 0.0 /100WBC 06/16/20 04:50 Total Counted 100 06/16/20 04:50 Neutrophils % (Manual) 94 % (39-76) H 06/16/20 04:50 Band Neutrophils % 5 % (0-10) 06/08/20 04:39 Lymphocytes % (Manual) 4 % (13-43) L 06/16/20 04:50 Monocytes % (Manual) 2 % (4-9) L 06/16/20 04:50 Eosinophils % (Manual) 2 % (0-6) 06/03/20 04:37 Myelocytes % 1 06/13/20 05:00 Plt Morphology Comment Normal (NORMAL) 06/16/20 04:50 RBC Morphology Normal (NORMAL) 06/16/20 04:50 Hypochromasia Slight A 06/08/20 04:39 Poikilocytosis Slight A 06/08/20 04:39 D-Dimer 1.05 ug/ml (0.0-0.57) H* 06/16/20 04:50 Sample Site [place] 06/16/20 05:06 ABG pH 7.490 (7.35-7.45) H 06/16/20 05:06 ABG pCO2 36.0 mmHg (35.0-45.0) 06/16/20 05:06 ABG pO2 58.0 mmHg (80.0-100.0) L 06/16/20 05:06 ABG HCO3 27.4 mmol/L (22-26) H 06/16/20 05:06 ABG O2 Saturation 92.0 % (90-100) 06/16/20 05:06 ABG Base Excess 4.0 mmol/L (-2.0-2.0) H 06/16/20 05:06 Aniket Test Pos 06/16/20 05:06 A-a Gradient 196.0 mmHg 06/16/20 05:06 FiO2 42.0 06/16/20 05:06 Blood Gas Comments Teddy abg well-mtf 06/16/20 05:06 Sodium 138 mmol/L (136-145) 06/16/20 04:50 Corrected Sodium 141 mmol/L (136-145) 06/16/20 04:50 Potassium 3.9 mmol/L (3.5-5.1) 06/16/20 04:50 Chloride 105 mmol/L (98-107) 06/16/20 04:50 Carbon Dioxide 25.6 mmol/L (21-32) 06/16/20 04:50 BUN 21 mg/dL (7-18) H 06/16/20 04:50 Creatinine 0.91 mg/dL (0.55-1.02) 06/16/20 04:50 Est GFR (MDRD) Af Amer > 60 (>60) 06/16/20 04:50 Est GFR (MDRD) Non-Af > 60 (>60) 06/16/20 04:50 Glucose 226 mg/dL (65-99) H 06/16/20 04:50 POC Glucose (mg/dL) 313 mg/dL (65-99) H 06/16/20 10:20 Lactic Acid 0.9 mmol/L (0.4-2.0) 06/02/20 08:55 Calcium 9.1 mg/dL (8.5-10.1) 06/16/20 04:50 Corrected Calcium 10.4 mg/dL (8.5-10.1) H 06/16/20 04:50 Magnesium 2.0 mg/dL (1.7-2.9) 06/13/20 05:00 Ferritin 746 ng/mL (8-252) H 05/29/20 01:55 Total Bilirubin 0.60 mg/dL (0.2-1.0) 06/16/20 04:50 AST 12 Units/L (15-37) L 06/16/20 04:50 ALT 19 Units/L (12-78) 06/16/20 04:50 Alkaline Phosphatase 97 Units/L (46-116) 06/16/20 04:50 Creatine Kinase 116 Units/L (26-192) 06/08/20 19:11 CK-MB (CK-2) < 1.0 ng/mL (0-4.0) 06/08/20 19:11 CK/CKMB % Calc 0.9 % (<4) 06/08/20 19:11 Troponin I < 0.02 ng/mL (0-1.5) 06/08/20 19:11 C-Reactive Protein 76.90 mg/L (0-3.0) H 06/05/20 05:29 B-Natriuretic Peptide 24.3 pg/mL (0-79) 05/29/20 01:55 Total Protein 6.3 g/dL (6.4-8.2) L 06/16/20 04:50 Albumin 2.4 g/dL (3.4-5.0) L 06/16/20 04:50 Globulin 3.9 g/dL (2.5-4.5) 06/16/20 04:50 Albumin/Globulin Ratio 0.6 Ratio (1.1-2.1) L 06/16/20 04:50 Specimen Type Clean catch urine 06/01/20 17:47 Urine Color Yellow (YELLOW) 06/01/20 17:47 Urine Appearance Clear (CLEAR) 06/01/20 17:47 Urine pH 5.0 (5.0 - 8.0) 06/01/20 17:47 Ur Specific [place] 1.015 (1.000-1.030) 06/01/20 17:47 Urine Protein 2+ (NEGATIVE) 06/01/20 17:47 Urine Glucose (UA) 4+ (NEGATIVE) 06/01/20 17:47 Urine Ketones 3+ (NEGATIVE) 06/01/20 17:47 Urine Occult Blood Negative (NEGATIVE) 06/01/20 17:47 Urine Nitrite Negative (NEGATIVE) 06/01/20 17:47 Urine Bilirubin Negative (NEGATIVE) 06/01/20 17:47 Urine Acetone Large (NEGATIVE) H 06/01/20 13:50 Urine Urobilinogen Normal (NORMAL) 06/01/20 17:47 Ur Leukocyte Esterase Negative (NEGATIVE) 06/01/20 17:47 Urine RBC 3-5 /HPF (0-3) A 05/31/20 19:30 Urine WBC 0-2 /HPF (0-5) 05/31/20 19:30 Ur Squamous Epith Cells Rare /HPF (NEGATIVE) 05/31/20 19:30 Urine Bacteria 1+ /HPF (NEGATIVE) 05/31/20 19:30 Urine Yeast Many /HPF (NEGATIVE) 05/31/20 19:30 Ur Culture Indicated? No/not indicated 05/31/20 19:30 Acetone, Semi-Quant Negative (NEGATIVE) 06/04/20 05:52 SARS CoV-2 RNA Rapid MARILU Positive (NEGATIVE) A 05/29/20 02:05 - Plan (1) COVID-19 virus infection Status: Acute Plan: IV HYDRATION, IV ANTIBIOTICS. BS AND BP CONTROL, DDIMER. CARDIAC MONITORING, SSI. IV HYDRATION, STRICT I&OS, CRP ON ADMISSION. IV REMDESIVIR COMPLETED 5 DOSES (2) Essential hypertension Status: Chronic (3) Hypokalemia Status: Acute (4) Acute dehydration Status: Acute
[2020-06-16] MEDS: COLACE CAP 100 MG PO SCH (21:11)
[2020-06-16] MEDS: SNACK - Diabetic Appropriate PO SCH (22:28)
[2020-06-17] MEDS: ROBITUSSIN DM PO SCH ×6 (01:36→21:40)
[2020-06-17] MEDS ORDERED: NS 1/2 1000 ML IV 1,000 ML IV ONE (04:22)
[2020-06-17] MEDS: NS 1/2 1000 ML IV 1,000 ML IV SCH ×2 (04:51→12:16)
[2020-06-17 05:32] LABS: BASOPHILS # (AUTO) 0.1 X10^3/uL (0.0-0.1); BASOPHILS % (AUTO) 0.3 % (0.2-1.0); HEMATOCRIT 34.4 % (36.0-47.0); HEMOGLOBIN 10.8 g/dL (12.0-16.0); LYMPHOCYTES # (AUTO) 0.4 X10^3/uL (1.3-2.9); LYMPHOCYTES % (AUTO) 2.4 % (21.0-51.0); MEAN CORPUSCULAR HGB CONC 31.4 g/dL (33.0-35.0); MEAN CORPUSCULAR VOLUME 82.8 fL (80.0-100.0); MEAN PLATELET VOLUME 9.7 fL (7.4-11.0); MONOCYTES # (AUTO) 0.4 x10^3/uL (0.3-0.8); MONOCYTES % (AUTO) 2.6 % (0.0-13.0); NEUTROPHILS # (AUTO) 15.6 x10^3/uL (2.2-4.8); NEUTROPHILS % (AUTO) 94.7 % (42.0-75.0); PLATELET COUNT 243 X10^3/uL (150.0-450.0); RED BLOOD COUNT 4.16 X10^6/uL (3.5-5.4); RED CELL DISTRIBUTION WIDTH 14.5 % (11.6-16.5); WHITE BLOOD COUNT 16.5 X10^3/uL (3.6-10.0)
[2020-06-17 05:50] LABS: ALANINE AMINOTRANSFERASE 18 Units/L (12-78); ALBUMIN 2.3 g/dL (3.4-5.0); ALKALINE PHOSPHATASE 92 Units/L (46-116); ASPARTATE AMINO TRANSFERASE 12 Units/L (15-37); BLOOD UREA NITROGEN 20 mg/dL (7-18); CALCIUM 8.5 mg/dL (8.5-10.1); CARBON DIOXIDE 26.2 mmol/L (21-32); CHLORIDE 105 mmol/L (98-107); COR CA(FOR HYPOALB) 9.9 mg/dL (8.5-10.1); COR NA(FOR HYPERGLY) 144 mmol/L (136-145); CREATININE 0.74 mg/dL (0.55-1.02); SODIUM 141 mmol/L (136-145); TOTAL PROTEIN 5.7 g/dL (6.4-8.2); eGFR NON BLACK RACES > 60 (>60)
[2020-06-17 05:58] LABS: BAND NEUTROPHILS % 1 % (0-10); PLATELET MORPHOLOGY COMMENT NORMAL (NORMAL)
[2020-06-17] MEDS: ZOSYN VIAL 3.375 GRAMS 3.375 G in NS 100 ML IV + SPIKE MINIBAG* 100 ML IV SCH ×3 (06:03→21:40)
[2020-06-17] MEDS: HumuLIN R SUBCUT PRN ×4 (06:05→17:20)
[2020-06-17] MEDS: DIFLUCAN 200 MG IV PREMIX* 200 MG/100 ML BAG IV SCH (08:24)
[2020-06-17] MEDS: LEVAQUIN PREMIX IV 500 MG 500 MG/100 ML BAG IV SCH (08:24)
[2020-06-17] MEDS: PROTONIX INJ 40 MG VIAL IVP SCH ×2 (08:25→21:40)
[2020-06-17] MEDS: COZAAR PO SCH (08:25)
[2020-06-17] MEDS: SOLU-Medrol 125 MG VIAL IVP SCH ×2 (08:25→21:40)
[2020-06-17] MEDS: LOVENOX INJ 30 MG SYR SC SCH ×2 (08:26→22:16)
[2020-06-17] MEDS: MILK OF MAGNESIA PO SCH ×2 (08:27→21:40)
[2020-06-17] MEDS: NORVASC TAB 5 MG PO SCH (08:27)
[2020-06-17] MEDS: TRICOR TAB 160 MG PO SCH (08:27)
[2020-06-17] MEDS: K-DUR TAB 20 MEQ PO PRN (08:28)
[2020-06-17] MEDS: VOLTAREN 1 % GEL MULTI DOSE TUBE TOP SCH ×4 (08:28→21:40)
[2020-06-17] MEDS: DUONEB 0.5 MG/3 MG (3 mL) NEB SCH ×4 (08:51→20:40)
[2020-06-17] MEDS: PULMICORT NEB TX 0.5 MG NEB SCH ×2 (08:51→20:40)
[2020-06-17 10:06] LABS: ABG BASE EXCESS 4.2 mmol/L (-2.0-2.0); ABG HCO3 27.3 mmol/L (22-26)
[2020-06-17] MEDS: MIRALAX POWDER (1 DOSE 17 G) PO PRN (16:57)
[2020-06-17] MEDS ORDERED: KLONOPIN TAB 0.5 MG PO PRN (18:15)
[2020-06-17] MEDS: SNACK - Diabetic Appropriate PO SCH (20:15)
[2020-06-17] MEDS ORDERED: DULCOLAX SUPPOSITORY 10 MG RECTAL ONE (21:00)
[2020-06-17] MEDS: COLACE CAP 100 MG PO SCH (21:45)
[2020-06-18] MEDS ORDERED: NS 1/2 1000 ML IV 1,000 ML IV ONE (01:30)
[2020-06-18] MEDS: ROBITUSSIN DM PO SCH ×5 (01:35→17:08)
[2020-06-18] MEDS: NS 1/2 1000 ML IV 1,000 ML IV SCH ×2 (01:35→14:12)
[2020-06-18 05:15] LABS: ABG ALLEN TEST POS; ABG BASE EXCESS 3.9 mmol/L (-2.0-2.0); ABG HCO3 27.7 mmol/L (22-26)
[2020-06-18] MEDS: HumuLIN R SUBCUT PRN ×4 (05:30→21:55)
[2020-06-18] MEDS: ZOSYN VIAL 3.375 GRAMS 3.375 G in NS 100 ML IV + SPIKE MINIBAG* 100 ML IV SCH ×3 (06:00→22:00)
[2020-06-18] MEDS: PULMICORT NEB TX 0.5 MG NEB SCH ×2 (09:05→21:22)
[2020-06-18] MEDS: DUONEB 0.5 MG/3 MG (3 mL) NEB SCH ×4 (09:05→21:22)
[2020-06-18] MEDS: DIFLUCAN 200 MG IV PREMIX* 200 MG/100 ML BAG IV SCH (09:33)
[2020-06-18] MEDS: MILK OF MAGNESIA PO SCH ×2 (09:34→21:30)
[2020-06-18] MEDS: MIRALAX POWDER (1 DOSE 17 G) PO PRN (09:34)
[2020-06-18] MEDS: LEVAQUIN PREMIX IV 500 MG 500 MG/100 ML BAG IV SCH (09:34)
[2020-06-18] MEDS: LOVENOX INJ 30 MG SYR SC SCH ×2 (09:35→21:30)
[2020-06-18] MEDS: SOLU-Medrol 125 MG VIAL IVP SCH ×2 (09:35→21:30)
[2020-06-18] MEDS: PROTONIX INJ 40 MG VIAL IVP SCH ×2 (09:35→21:30)
[2020-06-18] MEDS: COZAAR PO SCH (09:36)
[2020-06-18] MEDS: NORVASC TAB 5 MG PO SCH (09:37)
[2020-06-18] MEDS: VOLTAREN 1 % GEL MULTI DOSE TUBE TOP SCH ×4 (09:37→21:30)
[2020-06-18] MEDS: TRICOR TAB 160 MG PO SCH (09:38)
[2020-06-18] MEDS: CATAPRES-TTS-2 TD SCH (10:03)
[2020-06-18 11:15] LABS: BASOPHILS # (AUTO) 0.1 X10^3/uL (0.0-0.1); BASOPHILS % (AUTO) 0.5 % (0.2-1.0); EOSINOPHILS % (AUTO) 0.2 % (0.9-2.9); HEMATOCRIT 34.1 % (36.0-47.0); HEMOGLOBIN 10.7 g/dL (12.0-16.0); LYMPHOCYTES # (AUTO) 2.3 X10^3/uL (1.3-2.9); LYMPHOCYTES % (AUTO) 13.4 % (21.0-51.0); MEAN CORPUSCULAR HGB CONC 31.3 g/dL (33.0-35.0); MEAN PLATELET VOLUME 9.6 fL (7.4-11.0); MONOCYTES # (AUTO) 0.7 x10^3/uL (0.3-0.8); MONOCYTES % (AUTO) 4.1 % (0.0-13.0); NEUTROPHILS # (AUTO) 14.1 x10^3/uL (2.2-4.8); NEUTROPHILS % (AUTO) 81.8 % (42.0-75.0); PLATELET COUNT 197 X10^3/uL (150.0-450.0); RED BLOOD COUNT 4.11 X10^6/uL (3.5-5.4); RED CELL DISTRIBUTION WIDTH 14.8 % (11.6-16.5); WHITE BLOOD COUNT 17.2 X10^3/uL (3.6-10.0)
[2020-06-18 11:23] LABS: ALANINE AMINOTRANSFERASE 16 Units/L (12-78); ALBUMIN 2.2 g/dL (3.4-5.0); ALKALINE PHOSPHATASE 81 Units/L (46-116); ASPARTATE AMINO TRANSFERASE 14 Units/L (15-37); BLOOD UREA NITROGEN 20 mg/dL (7-18); CALCIUM 8.4 mg/dL (8.5-10.1); CARBON DIOXIDE 28.4 mmol/L (21-32); CHLORIDE 108 mmol/L (98-107); COR CA(FOR HYPOALB) 9.8 mg/dL (8.5-10.1); CREATININE 0.74 mg/dL (0.55-1.02); SODIUM 141 mmol/L (136-145); TOTAL PROTEIN 5.2 g/dL (6.4-8.2); eGFR NON BLACK RACES > 60 (>60)
--- NOTE | 2020-06-18 17:03 | RAD ---
HISTORYCOVID-19STUDYCHEST, 1 [id number]/11/2021FINDINGSStable cardiomediastinal silhouette. Stable appearance of patchy multifocal bilateral pulmonary opacities. No visible pneumothorax or sizable effusion.IMPRESSIONNo significant interval change.Electronically signed by: Brenden Andrade (Jun 18, 2020 17:01:15)
[2020-06-18] MEDS: SNACK - Diabetic Appropriate PO SCH (20:00)
[2020-06-18] MEDS: COLACE CAP 100 MG PO SCH (21:30)
[2020-06-19] MEDS: ROBITUSSIN DM PO SCH ×7 (00:48→20:36)
[2020-06-19] MEDS ORDERED: NS 1/2 1000 ML IV 1,000 ML IV ONE (01:24)
[2020-06-19] MEDS: NS 1/2 1000 ML IV 1,000 ML IV SCH ×2 (04:54→17:31)
[2020-06-19] MEDS: ZOSYN VIAL 3.375 GRAMS 3.375 G in NS 100 ML IV + SPIKE MINIBAG* 100 ML IV SCH (05:59)
[2020-06-19] MEDS: PULMICORT NEB TX 0.5 MG NEB SCH ×2 (08:55→20:38)
[2020-06-19] MEDS: DUONEB 0.5 MG/3 MG (3 mL) NEB SCH ×4 (08:55→20:38)
[2020-06-19 09:13] LABS: ABG BASE EXCESS 7.2 mmol/L (-2.0-2.0); ABG HCO3 29.9 mmol/L (22-26)
[2020-06-19 09:14] LABS: ABG ALLEN TEST POS
[2020-06-19 09:26] LABS: BASOPHILS # (AUTO) 0.1 X10^3/uL (0.0-0.1); BASOPHILS % (AUTO) 0.3 % (0.2-1.0); EOSINOPHILS % (AUTO) 0.1 % (0.9-2.9); HEMATOCRIT 34.4 % (36.0-47.0); HEMOGLOBIN 10.9 g/dL (12.0-16.0); LYMPHOCYTES # (AUTO) 2.1 X10^3/uL (1.3-2.9); LYMPHOCYTES % (AUTO) 10.7 % (21.0-51.0); MEAN CORPUSCULAR HEMOGLOBIN 26.2 pg (27.0-34.0); MEAN CORPUSCULAR HGB CONC 31.6 g/dL (33.0-35.0); MEAN PLATELET VOLUME 9.6 fL (7.4-11.0); MONOCYTES # (AUTO) 0.6 x10^3/uL (0.3-0.8); MONOCYTES % (AUTO) 3.3 % (0.0-13.0); NEUTROPHILS % (AUTO) 85.6 % (42.0-75.0); PLATELET COUNT 187 X10^3/uL (150.0-450.0); RED BLOOD COUNT 4.14 X10^6/uL (3.5-5.4); RED CELL DISTRIBUTION WIDTH 14.7 % (11.6-16.5); WHITE BLOOD COUNT 19.8 X10^3/uL (3.6-10.0)
[2020-06-19 09:39] LABS: ALANINE AMINOTRANSFERASE 23 Units/L (12-78); ALBUMIN 2.4 g/dL (3.4-5.0); ALKALINE PHOSPHATASE 92 Units/L (46-116); ASPARTATE AMINO TRANSFERASE 22 Units/L (15-37); BLOOD UREA NITROGEN 18 mg/dL (7-18); CALCIUM 8.5 mg/dL (8.5-10.1); CARBON DIOXIDE 27.5 mmol/L (21-32); CHLORIDE 106 mmol/L (98-107); COR CA(FOR HYPOALB) 9.8 mg/dL (8.5-10.1); COR NA(FOR HYPERGLY) 142 mmol/L (136-145); CREATININE 0.82 mg/dL (0.55-1.02); SODIUM 141 mmol/L (136-145); TOTAL PROTEIN 5.7 g/dL (6.4-8.2); eGFR NON BLACK RACES > 60 (>60)
[2020-06-19] MEDS: SOLU-Medrol 125 MG VIAL IVP SCH ×2 (09:46→20:35)
[2020-06-19] MEDS: PROTONIX INJ 40 MG VIAL IVP SCH ×2 (09:47→20:36)
[2020-06-19] MEDS: ANTIVERT TAB 25 MG PO PRN (09:47)
[2020-06-19] MEDS: NORVASC TAB 5 MG PO SCH (09:47)
[2020-06-19] MEDS: COZAAR PO SCH (09:47)
[2020-06-19] MEDS: TRICOR TAB 160 MG PO SCH (09:48)
[2020-06-19] MEDS: VOLTAREN 1 % GEL MULTI DOSE TUBE TOP SCH ×4 (09:48→21:00)
[2020-06-19] MEDS: LOVENOX INJ 30 MG SYR SC SCH ×2 (09:48→20:35)
[2020-06-19] MEDS: LEVAQUIN PREMIX IV 500 MG 500 MG/100 ML BAG IV SCH (09:49)
[2020-06-19] MEDS: MILK OF MAGNESIA PO SCH ×3 (09:49→21:35)
[2020-06-19] MEDS: DIFLUCAN 200 MG IV PREMIX* 200 MG/100 ML BAG IV SCH (09:49)
--- NOTE | 2020-06-19 09:49 | RAD ---
HISTORYcovid, sob, elevated hrSTUDYCHEST x-ray, 1 VIEWCOMPARISONX-ray 06/18/2020FINDINGSBilateral lung infiltrates are similar to prior study. Findings are probably due to COVID-19 pneumonia. Heart is normal in size. No pneumothorax or pleural effusion is seen.IMPRESSIONPersistent bilateral pneumonia.Electronically signed by: Andrea Rios (Jun 19, 2020 09:47:52)
[2020-06-19] MEDS: HumuLIN R SUBCUT PRN ×3 (13:50→21:31)
[2020-06-19 16:35] LABS: BILIRUBIN,URINE NEGATIVE (NEGATIVE); BLOOD/HEMOGLOBIN,URINE 1+ (NEGATIVE); GLUCOSE, URINE 4+ (NEGATIVE); KETONES,URINE 1+ (NEGATIVE); LEUKOCYTE ESTERASE ,URINE NEGATIVE (NEGATIVE); NITRITES,URINE NEGATIVE (NEGATIVE); PROTEIN,URINE NEGATIVE (NEGATIVE); UROBILINOGEN,URINE NORMAL (NORMAL)
[2020-06-19 16:39] LABS: APPEARANCE,URINE CLEAR (CLEAR); COLOR,URINE YELLOW (YELLOW)
[2020-06-19 16:40] LABS: BACTERIA,URINE NEGATIVE /HPF (NEGATIVE); RBC,URINE 0-2 /HPF (0-3); SQUAMOUS EPITHELIAL CELL,UR RARE /HPF (NEGATIVE)
[2020-06-19 18:20] LABS: ABG BASE EXCESS 5.1 mmol/L (-2.0-2.0); ABG HCO3 26.9 mmol/L (22-26)
[2020-06-19 18:21] LABS: ABG ALLEN TEST POS
[2020-06-19] MEDS: SNACK - Diabetic Appropriate PO SCH (20:00)
[2020-06-19] MEDS: COLACE CAP 100 MG PO SCH (20:35)
[2020-06-20] MEDS ORDERED: NS 1/2 1000 ML IV 1,000 ML IV ONE (01:50)
[2020-06-20] MEDS: ROBITUSSIN DM PO SCH ×6 (02:31→20:28)
[2020-06-20] MEDS: NS 1/2 1000 ML IV 1,000 ML IV SCH ×3 (02:32→19:17)
--- NOTE | 2020-06-20 04:43 | RAD ---
PROCEDURE: Chest X-ray 1 View .HISTORY: PNEUMONIA .TECHNIQUE: AP view .COMPARISON: 06/19/2020.TECHNICAL QUALITY: Satisfactory .FINDINGS:Normal cardio mediastinal silhouette.Normal central vascularity.Moderate patchy consolidation throughout both lung sen consistent with pneumonia that is increased compared to previous study. Unchanged mildly elevated right hemidiaphragm. No pleural fluid or pneumothorax.IMPRESSION:Increasing pneumonia bilaterally.Electronically signed by: Bucky Galicia (Jun 20, 2020 04:40:41)
[2020-06-20] MEDS: HumuLIN R SUBCUT PRN ×4 (05:48→17:53)
[2020-06-20 05:51] LABS: BASOPHILS # (AUTO) 0.1 X10^3/uL (0.0-0.1); BASOPHILS % (AUTO) 0.5 % (0.2-1.0); HEMATOCRIT 32.3 % (36.0-47.0); HEMOGLOBIN 10.3 g/dL (12.0-16.0); LYMPHOCYTES # (AUTO) 0.7 X10^3/uL (1.3-2.9); LYMPHOCYTES % (AUTO) 5.2 % (21.0-51.0); MEAN CORPUSCULAR HEMOGLOBIN 26.5 pg (27.0-34.0); MEAN CORPUSCULAR HGB CONC 31.9 g/dL (33.0-35.0); MEAN CORPUSCULAR VOLUME 82.9 fL (80.0-100.0); MEAN PLATELET VOLUME 9.5 fL (7.4-11.0); MONOCYTES # (AUTO) 0.3 x10^3/uL (0.3-0.8); NEUTROPHILS # (AUTO) 11.7 x10^3/uL (2.2-4.8); NEUTROPHILS % (AUTO) 92.3 % (42.0-75.0); PLATELET COUNT 172 X10^3/uL (150.0-450.0); RED BLOOD COUNT 3.89 X10^6/uL (3.5-5.4); WHITE BLOOD COUNT 12.7 X10^3/uL (3.6-10.0)
[2020-06-20 05:53] LABS: ABG ALLEN TEST POS; ABG BASE EXCESS 4.2 mmol/L (-2.0-2.0); ABG HCO3 28.4 mmol/L (22-26)
[2020-06-20 06:08] LABS: ALANINE AMINOTRANSFERASE 22 Units/L (12-78); ALBUMIN 2.3 g/dL (3.4-5.0); ALKALINE PHOSPHATASE 88 Units/L (46-116); ASPARTATE AMINO TRANSFERASE 12 Units/L (15-37); BLOOD UREA NITROGEN 17 mg/dL (7-18); CALCIUM 8.3 mg/dL (8.5-10.1); CARBON DIOXIDE 26.4 mmol/L (21-32); CHLORIDE 106 mmol/L (98-107); COR CA(FOR HYPOALB) 9.7 mg/dL (8.5-10.1); COR NA(FOR HYPERGLY) 145 mmol/L (136-145); CREATININE 0.76 mg/dL (0.55-1.02); SODIUM 141 mmol/L (136-145); TOTAL PROTEIN 5.7 g/dL (6.4-8.2); eGFR NON BLACK RACES > 60 (>60)
[2020-06-20 06:13] LABS: PLATELET MORPHOLOGY COMMENT NORMAL (NORMAL)
[2020-06-20] MEDS ORDERED: LASIX IVP ONE (08:29)
[2020-06-20] MEDS: DIFLUCAN 200 MG IV PREMIX* 200 MG/100 ML BAG IV SCH (08:39)
[2020-06-20] MEDS: COZAAR PO SCH (08:39)
[2020-06-20] MEDS: PROTONIX INJ 40 MG VIAL IVP SCH ×2 (08:40→20:28)
[2020-06-20] MEDS: SOLU-Medrol 125 MG VIAL IVP SCH ×2 (08:40→20:28)
[2020-06-20] MEDS: TRICOR TAB 160 MG PO SCH (08:40)
[2020-06-20] MEDS: NORVASC TAB 5 MG PO SCH (08:41)
[2020-06-20] MEDS: LOVENOX INJ 30 MG SYR SC SCH ×2 (08:41→20:26)
[2020-06-20] MEDS: DUONEB 0.5 MG/3 MG (3 mL) NEB SCH ×4 (08:55→20:29)
[2020-06-20] MEDS: PULMICORT NEB TX 0.5 MG NEB SCH ×2 (08:55→20:29)
[2020-06-20] MEDS ORDERED: K-DUR TAB 20 MEQ PO SCH (09:00)
[2020-06-20 09:01] LABS: CKMB % 3.1 % (<4); CREATINE KINASE 32 Units/L (26-192); TROPONIN I < 0.02 ng/mL (0-1.5)
[2020-06-20] MEDS: VOLTAREN 1 % GEL MULTI DOSE TUBE TOP SCH ×4 (09:05→20:28)
[2020-06-20] MEDS: MILK OF MAGNESIA PO SCH ×2 (09:05→20:29)
[2020-06-20] MEDS: LEVAQUIN PREMIX IV 500 MG 500 MG/100 ML BAG IV SCH (10:15)
--- NOTE | 2020-06-20 14:54 | NM ---
HISTORYELEVATED D-DIMER, COVID, SOBSTUDYPERFUSION LUNG SCAN ONLYCOMPARISON[Same day chest radiograph.]TECHNIQUE[Nuclear medicine perfusion scintigraphy. [5.4] mCi of technetium 99 M maa was administered.]FINDINGS[No large perfusion defects are identified. Recent chest radiograph showed bilateral moderate diffuse ground-glass opacities.]IMPRESSION[Low probability] for pulmonary emboli based on modified PIOPED criteria.Electronically signed by: Taras Mcnulty (Jun 20, 2020 14:52:03)
[2020-06-20] MEDS: SNACK - Diabetic Appropriate PO SCH (20:00)
[2020-06-20] MEDS: COLACE CAP 100 MG PO SCH (20:26)
[2020-06-20] MEDS: LEVEMIR SC SCH (20:27)
[2020-06-21] MEDS ORDERED: NS 1/2 1000 ML IV 1,000 ML IV ONE ×2 (00:44→23:36)
[2020-06-21] MEDS: NS 1/2 1000 ML IV 1,000 ML IV SCH ×2 (01:16→20:02)
[2020-06-21] MEDS: ROBITUSSIN DM PO SCH ×6 (01:17→21:13)
--- NOTE | 2020-06-21 04:33 | RAD ---
PROCEDURE: Chest X-ray 1 View .HISTORY: PNEUMONIA .TECHNIQUE: AP view .COMPARISON: 06/20/2020.TECHNICAL QUALITY: Satisfactory .FINDINGS:Normal cardio mediastinal silhouette.Normal central vascularity.Unchanged patchy pneumonia both lung sen and elevated right hemidiaphragm with no pleural fluid or pneumothorax.IMPRESSION:Unchanged bilateral pneumonia.Electronically signed by: Bucky Galicia (Jun 21, 2020 04:31:20)
[2020-06-21 05:16] LABS: BASOPHILS % (AUTO) 0.4 % (0.2-1.0); HEMATOCRIT 31.3 % (36.0-47.0); HEMOGLOBIN 9.9 g/dL (12.0-16.0); LYMPHOCYTES # (AUTO) 0.3 X10^3/uL (1.3-2.9); LYMPHOCYTES % (AUTO) 2.3 % (21.0-51.0); MEAN CORPUSCULAR HEMOGLOBIN 26.7 pg (27.0-34.0); MEAN CORPUSCULAR HGB CONC 31.6 g/dL (33.0-35.0); MEAN CORPUSCULAR VOLUME 84.5 fL (80.0-100.0); MEAN PLATELET VOLUME 9.9 fL (7.4-11.0); MONOCYTES # (AUTO) 0.2 x10^3/uL (0.3-0.8); MONOCYTES % (AUTO) 1.6 % (0.0-13.0); NEUTROPHILS # (AUTO) 12.1 x10^3/uL (2.2-4.8); NEUTROPHILS % (AUTO) 95.7 % (42.0-75.0); PLATELET COUNT 164 X10^3/uL (150.0-450.0); RED BLOOD COUNT 3.71 X10^6/uL (3.5-5.4); WHITE BLOOD COUNT 12.7 X10^3/uL (3.6-10.0)
[2020-06-21 05:28] LABS: ALANINE AMINOTRANSFERASE 19 Units/L (12-78); ALBUMIN 2.3 g/dL (3.4-5.0); ALKALINE PHOSPHATASE 89 Units/L (46-116); ASPARTATE AMINO TRANSFERASE 6 Units/L (15-37); BLOOD UREA NITROGEN 22 mg/dL (7-18); CALCIUM 8.5 mg/dL (8.5-10.1); CARBON DIOXIDE 26.8 mmol/L (21-32); CHLORIDE 105 mmol/L (98-107); COR CA(FOR HYPOALB) 9.9 mg/dL (8.5-10.1); COR NA(FOR HYPERGLY) 148 mmol/L (136-145); CREATININE 1.01 mg/dL (0.55-1.02); SODIUM 140 mmol/L (136-145); TOTAL PROTEIN 5.6 g/dL (6.4-8.2); eGFR NON BLACK RACES 59 (>60)
[2020-06-21 05:41] LABS: BAND NEUTROPHILS % 2 % (0-10); HYPOCHROMASIA SLIGHT; PLATELET MORPHOLOGY COMMENT NORMAL (NORMAL)
[2020-06-21] MEDS: HumuLIN R SUBCUT PRN ×4 (05:47→21:08)
[2020-06-21 06:08] LABS: ABG BASE EXCESS 5.5 mmol/L (-2.0-2.0); ABG HCO3 28.9 mmol/L (22-26)
[2020-06-21 06:09] LABS: ABG ALLEN TEST POS
[2020-06-21] MEDS: NORVASC TAB 5 MG PO SCH (09:18)
[2020-06-21] MEDS: COZAAR PO SCH (09:18)
[2020-06-21] MEDS: PROTONIX INJ 40 MG VIAL IVP SCH ×2 (09:18→21:12)
[2020-06-21] MEDS: TRICOR TAB 160 MG PO SCH (09:18)
[2020-06-21] MEDS: LEVAQUIN PREMIX IV 500 MG 500 MG/100 ML BAG IV SCH (09:19)
[2020-06-21] MEDS: MILK OF MAGNESIA PO SCH ×2 (09:19→21:11)
[2020-06-21] MEDS: SOLU-Medrol 125 MG VIAL IVP SCH ×2 (09:20→21:17)
[2020-06-21] MEDS: LOVENOX INJ 30 MG SYR SC SCH ×2 (09:27→21:11)
[2020-06-21] MEDS: VOLTAREN 1 % GEL MULTI DOSE TUBE TOP SCH ×4 (09:27→21:18)
[2020-06-21] MEDS: PULMICORT NEB TX 0.5 MG NEB SCH ×2 (09:34→20:33)
[2020-06-21] MEDS: DUONEB 0.5 MG/3 MG (3 mL) NEB SCH ×4 (09:34→20:33)
[2020-06-21] MEDS: NORCO 5/325 MG TAB PO PRN (10:21)
[2020-06-21] MEDS: DIFLUCAN 200 MG IV PREMIX* 200 MG/100 ML BAG IV SCH (10:35)
[2020-06-21] MEDS: SNACK - Diabetic Appropriate PO SCH (20:01)
[2020-06-21] MEDS: COLACE CAP 100 MG PO SCH (21:07)
[2020-06-21] MEDS: LEVEMIR SC SCH (21:09)
[2020-06-22] MEDS: ROBITUSSIN DM PO SCH ×6 (01:03→21:03)
[2020-06-22] MEDS: HumuLIN R SUBCUT PRN ×4 (01:04→20:57)
[2020-06-22] MEDS: SOLU-Medrol 125 MG VIAL IVP SCH ×2 (09:06→20:59)
[2020-06-22] MEDS: LOVENOX INJ 30 MG SYR SC SCH ×2 (09:07→20:56)
[2020-06-22] MEDS: NORVASC TAB 5 MG PO SCH (09:07)
[2020-06-22] MEDS: PROTONIX INJ 40 MG VIAL IVP SCH ×2 (09:07→20:59)
[2020-06-22] MEDS: LEVAQUIN PREMIX IV 500 MG 500 MG/100 ML BAG IV SCH (09:07)
[2020-06-22] MEDS: COZAAR PO SCH (09:08)
[2020-06-22] MEDS: MILK OF MAGNESIA PO SCH ×2 (09:08→21:00)
[2020-06-22] MEDS: TRICOR TAB 160 MG PO SCH (09:08)
[2020-06-22] MEDS: VOLTAREN 1 % GEL MULTI DOSE TUBE TOP SCH ×4 (09:17→21:03)
[2020-06-22] MEDS: NS 1/2 1000 ML IV 1,000 ML IV SCH ×2 (09:22→22:12)
[2020-06-22] MEDS ORDERED: LASIX IVP ONE (09:25)
[2020-06-22] MEDS: DUONEB 0.5 MG/3 MG (3 mL) NEB SCH ×4 (09:25→20:34)
[2020-06-22] MEDS: PULMICORT NEB TX 0.5 MG NEB SCH ×2 (09:25→20:34)
[2020-06-22 10:11] LABS: BASOPHILS % (AUTO) 0.2 % (0.2-1.0); HEMOGLOBIN 10.8 g/dL (12.0-16.0); LYMPHOCYTES # (AUTO) 0.5 X10^3/uL (1.3-2.9); LYMPHOCYTES % (AUTO) 3.9 % (21.0-51.0); MEAN CORPUSCULAR HEMOGLOBIN 26.7 pg (27.0-34.0); MEAN CORPUSCULAR HGB CONC 31.8 g/dL (33.0-35.0); MEAN PLATELET VOLUME 9.6 fL (7.4-11.0); MONOCYTES # (AUTO) 0.4 x10^3/uL (0.3-0.8); MONOCYTES % (AUTO) 3.3 % (0.0-13.0); NEUTROPHILS % (AUTO) 92.6 % (42.0-75.0); PLATELET COUNT 172 X10^3/uL (150.0-450.0); RED BLOOD COUNT 4.04 X10^6/uL (3.5-5.4); WHITE BLOOD COUNT 12.9 X10^3/uL (3.6-10.0)
[2020-06-22 10:21] LABS: ALANINE AMINOTRANSFERASE 21 Units/L (12-78); ALBUMIN 2.6 g/dL (3.4-5.0); ALKALINE PHOSPHATASE 79 Units/L (46-116); ASPARTATE AMINO TRANSFERASE 12 Units/L (15-37); BLOOD UREA NITROGEN 24 mg/dL (7-18); CALCIUM 9.1 mg/dL (8.5-10.1); CARBON DIOXIDE 28.6 mmol/L (21-32); CHLORIDE 107 mmol/L (98-107); COR CA(FOR HYPOALB) 10.2 mg/dL (8.5-10.1); COR NA(FOR HYPERGLY) 145 mmol/L (136-145); CREATININE 0.76 mg/dL (0.55-1.02); SODIUM 142 mmol/L (136-145); eGFR NON BLACK RACES > 60 (>60)
[2020-06-22] MEDS: DIFLUCAN 200 MG IV PREMIX* 200 MG/100 ML BAG IV SCH (10:22)
[2020-06-22 11:02] LABS: ANISOCYTOSIS SLIGHT; HYPOCHROMASIA SLIGHT; PLATELET MORPHOLOGY COMMENT NORMAL (NORMAL); POIKILOCYTOSIS SLIGHT
[2020-06-22 11:02] LABS: ABG BASE EXCESS 7.8 mmol/L (-2.0-2.0)
[2020-06-22 11:03] LABS: ABG HCO3 30.9 mmol/L (22-26)
[2020-06-22 11:04] LABS: ABG ALLEN TEST POS
--- NOTE | 2020-06-22 18:22 | PCM.PROG ---
Progress Note - Progress Note for Day of Date of Exam: 06/22/20 - Subjective Subjective: The patient is a pleasant 59-year-old black female who is currently being treated for COVID-19 pneumonia and hypoxia. Since admission, the patient has been on IV antibiotics, respiratory therapy, supplemental oxygen, along with corticosteroid therapy. She has completed five days of IV Remdesivir. She has continued to require high oxygen concentration supplementation with heated high flow. We have worked aggressively with her to wean her down. She was on heated high flow this morning with sats between 88-91%. She has been afebrile. The patients heart rate has increased a little bit since decreasing her oxygen supplementation. Heart rate has been in the 90-100. Appears to be sinus rhythm with occasional sinus tachycardia. She continues with diffuse ground glass opacities bilaterally. The patient has had some persistent mid-back pain with her x-ray revealing some curvature consistent with her history of scoliosis and suggesting possible secondary muscle spasms. She has been on as needed Tramadol and Tizanidine which she states helps when she has those episodes. She does have as needed [place] ordered and I dont think that she has been taking that. I think that she has just been doing the as needed Tramadol. The patient denies any nausea and vomiting or diarrhea. She states that she does not feel any chest pain or shortness of breath at rest just on exertion. The patient continues to use bedside commode with assistance. She denies any dizziness, headaches, or vision changes. - Past Medical Family Social History Past Med/Fam/Surg Hx: No changes since H&P Allergies: Allergies epinephrine Allergy (Verified 10/04/19 23:45) lidocaine Allergy (Verified 10/04/19 23:45) - Review of Systems ROS: No change since H&P - Vital Signs and I&O's Vital Signs: Temperature 98.8 F Pulse Rate [Left Brachial] 80 Pulse Rate 114 Respiratory Rate 36 Blood Pressure [left] 151/80 Blood Pressure [Right Arm] 169/83 Blood Pressure [Left Arm] 144/70 Blood Pressure 137/80 O2 Sat by Pulse Oximetry 89 Intake and Output: Intake & Output 06/20/20 06/21/20 06/22/20 06/23/20 11:59 11:59 11:59 11:59 Intake Total 3742 / 3742 3751 / 3751 4190 / 4190 1390 / 1390 Output Total 2600 / 2600 Balance 3742 / 3742 1151 / 1151 4190 / 4190 1390 / 1390 - Physical Exam Oriented: Normal Eyes: Normal Ear: Normal Nose: Normal Throat: Dry Respiratory: Generalized, Diminished Cardiovascular: Normal : Normal Auscultation: Bowel Sounds: Normal Tenderness: Normal Skin: Decreased [place] Musculoskeletal: Back:Lumbar Psychiatric: Anxiety Affect: Anxious Speech Pattern: Clear, Appropriate - Laboratory and Diagnostics Result Diagrams: 06/22/20 09:30 06/22/20 09:30 Labs: 06/09/20 08:20 Blood Blood Culture - Final 06/09/20 08:33 Blood Blood Culture - Final 06/09/20 15:45 Sputum - Expectorated Sputum Sputum Culture - Final 06/09/20 15:45 Sputum - Expectorated Sputum - Final 06/07/20 14:50 Sputum - Expectorated Sputum Sputum Culture - Final 06/07/20 14:50 Sputum - Expectorated Sputum - Final 05/31/20 09:01 Blood Blood Culture - Final Staphylococcus Epidermidis 05/31/20 08:50 Blood Blood Culture - Final Staphylococcus Epidermidis 05/29/20 01:50 Blood Blood Culture - Final 05/29/20 01:10 Blood Blood Culture - Final Laboratory WBC 12.9 X10^3/uL (3.6-10.0) H 06/22/20 09:30 RBC 4.04 X10^6/uL (3.5-5.4) 06/22/20 09:30 Hgb 10.8 g/dL (12.0-16.0) L 06/22/20 09:30 Hct 34.0 % (36.0-47.0) L 06/22/20 09:30 MCV 84.0 fL (80.0-100.0) 06/22/20 09:30 MCH 26.7 pg (27.0-34.0) L 06/22/20 09:30 MCHC 31.8 g/dL (33.0-35.0) L 06/22/20 09:30 RDW 15.0 % (11.6-16.5) 06/22/20 09:30 Plt Count 172 X10^3/uL (150.0-450.0) 06/22/20 09:30 Plt Count Comment Adequate (ADEQUATE) 06/22/20 09:30 MPV 9.6 fL (7.4-11.0) 06/22/20 09:30 Neut % (Auto) 92.6 % (42.0-75.0) H 06/22/20 09:30 Lymph % (Auto) 3.9 % (21.0-51.0) L 06/22/20 09:30 [place] % (Auto) 3.3 % (0.0-13.0) 06/22/20 09:30 Eos % (Auto) 0.0 % (0.9-2.9) L 06/22/20 09:30 Baso % (Auto) 0.2 % (0.2-1.0) 06/22/20 09:30 Neut # (Auto) 12.0 x10^3/uL (2.2-4.8) H 06/22/20 09:30 Lymph # (Auto) 0.5 X10^3/uL (1.3-2.9) L 06/22/20 09:30 [place] # (Auto) 0.4 x10^3/uL (0.3-0.8) 06/22/20 09:30 Eos # (Auto) 0.0 x10^3/uL (0.0-0.2) 06/22/20 09:30 Baso # (Auto) 0.0 X10^3/uL (0.0-0.1) 06/22/20 09:30 Absolute Nucleated RBC 0.0 /100WBC 06/22/20 09:30 Total Counted 100 06/22/20 09:30 Neutrophils % (Manual) 84 % (39-76) H 06/22/20 09:30 Band Neutrophils % 2 % (0-10) 06/21/20 04:25 Lymphocytes % (Manual) 9 % (13-43) L 06/22/20 09:30 Monocytes % (Manual) 7 % (4-9) 06/22/20 09:30 Eosinophils % (Manual) 2 % (0-6) 06/03/20 04:37 Myelocytes % 1 06/13/20 05:00 Plt Morphology Comment Normal (NORMAL) 06/22/20 09:30 RBC Morphology Abnormal (NORMAL) A 06/22/20 09:30 Hypochromasia Slight A 06/22/20 09:30 Poikilocytosis Slight A 06/22/20 09:30 Anisocytosis Slight A 06/22/20 09:30 D-Dimer 1.73 ug/ml (0.0-0.57) H* 06/19/20 16:10 Sample Site Rr 06/22/20 10:56 ABG pH 7.530 (7.35-7.45) H 06/22/20 10:56 ABG pCO2 37.0 mmHg (35.0-45.0) 06/22/20 10:56 ABG pO2 41.0 mmHg (80.0-100.0) L* 06/22/20 10:56 ABG HCO3 30.9 mmol/L (22-26) H* 06/22/20 10:56 ABG O2 Saturation 83.0 % (90-100) L* 06/22/20 10:56 ABG Base Excess 7.8 mmol/L (-2.0-2.0) H 06/22/20 10:56 Aniket Test Pos 06/22/20 10:56 A-a Gradient 198.0 mmHg 06/22/20 10:56 FiO2 40.0 06/22/20 10:56 Blood Gas Comments Pt emilia well cdn 06/22/20 10:56 Sodium 142 mmol/L (136-145) 06/22/20 09:30 Corrected Sodium 145 mmol/L (136-145) 06/22/20 09:30 Potassium 4.8 mmol/L (3.5-5.1) 06/22/20 09:30 Chloride 107 mmol/L (98-107) 06/22/20 09:30 Carbon Dioxide 28.6 mmol/L (21-32) 06/22/20 09:30 BUN 24 mg/dL (7-18) H 06/22/20 09:30 Creatinine 0.76 mg/dL (0.55-1.02) 06/22/20 09:30 Est GFR (MDRD) Af Amer > 60 (>60) 06/22/20 09:30 Est GFR (MDRD) Non-Af > 60 (>60) 06/22/20 09:30 Glucose 236 mg/dL (65-99) H 06/22/20 09:30 POC Glucose (mg/dL) 356 mg/dL (65-99) H 06/22/20 16:21 Lactic Acid 0.9 mmol/L (0.4-2.0) 06/02/20 08:55 Calcium 9.1 mg/dL (8.5-10.1) 06/22/20 09:30 Corrected Calcium 10.2 mg/dL (8.5-10.1) H 06/22/20 09:30 Magnesium 2.0 mg/dL (1.7-2.9) 06/13/20 05:00 Ferritin 746 ng/mL (8-252) H 05/29/20 01:55 Total Bilirubin 0.40 mg/dL (0.2-1.0) 06/22/20 09:30 AST 12 Units/L (15-37) L 06/22/20 09:30 ALT 21 Units/L (12-78) 06/22/20 09:30 Alkaline Phosphatase 79 Units/L (46-116) 06/22/20 09:30 Creatine Kinase 32 Units/L (26-192) 06/20/20 05:20 CK-MB (CK-2) 1.0 ng/mL (0-4.0) 06/20/20 05:20 CK/CKMB % Calc 3.1 % (<4) 06/20/20 05:20 Troponin I < 0.02 ng/mL (0-1.5) 06/20/20 05:20 C-Reactive Protein 4.00 mg/L (0-3.0) H 06/18/20 10:30 B-Natriuretic Peptide 24.3 pg/mL (0-79) 05/29/20 01:55 Total Protein 6.0 g/dL (6.4-8.2) L 06/22/20 09:30 Albumin 2.6 g/dL (3.4-5.0) L 06/22/20 09:30 Globulin 3.4 g/dL (2.5-4.5) 06/22/20 09:30 Albumin/Globulin Ratio 0.8 Ratio (1.1-2.1) L 06/22/20 09:30 Specimen Type Clean catch urine 06/19/20 15:50 Urine Color Yellow (YELLOW) 06/19/20 15:50 Urine Appearance Clear (CLEAR) 06/19/20 15:50 Urine pH 8.0 (5.0 - 8.0) 06/19/20 15:50 Ur Specific [place] 1.010 (1.000-1.030) 06/19/20 15:50 Urine Protein Negative (NEGATIVE) 06/19/20 15:50 Urine Glucose (UA) 4+ (NEGATIVE) 06/19/20 15:50 Urine Ketones 1+ (NEGATIVE) 06/19/20 15:50 Urine Occult Blood 1+ (NEGATIVE) 06/19/20 15:50 Urine Nitrite Negative (NEGATIVE) 06/19/20 15:50 Urine Bilirubin Negative (NEGATIVE) 06/19/20 15:50 Urine Acetone Large (NEGATIVE) H 06/01/20 13:50 Urine Urobilinogen Normal (NORMAL) 06/19/20 15:50 Ur Leukocyte Esterase Negative (NEGATIVE) 06/19/20 15:50 Urine RBC 0-2 /HPF (0-3) 06/19/20 15:50 Urine WBC None seen /HPF (0-5) 06/19/20 15:50 Ur Squamous Epith Cells Rare /HPF (NEGATIVE) 06/19/20 15:50 Urine Bacteria Negative /HPF (NEGATIVE) 06/19/20 15:50 Urine Yeast Many /HPF (NEGATIVE) 05/31/20 19:30 Ur Culture Indicated? No/not indicated 06/19/20 15:50 Acetone, Semi-Quant Negative (NEGATIVE) 06/19/20 16:10 SARS CoV-2 RNA Rapid MARILU Positive (NEGATIVE) A 05/29/20 02:05 - Plan (1) COVID-19 virus infection Status: Acute Plan: IV HYDRATION, IV ANTIBIOTICS. BS AND BP CONTROL, DDIMER. CARDIAC MONITORING, SSI. IV HYDRATION, STRICT I&OS, CRP ON ADMISSION. IV REMDESIVIR COMPLETED 5 DOSES (2) Essential hypertension Status: Chronic (3) Hypokalemia Status: Acute (4) Acute dehydration Status: Acute
[2020-06-22] MEDS: SNACK - Diabetic Appropriate PO SCH (20:20)
[2020-06-22] MEDS: LEVEMIR SC SCH (20:54)
[2020-06-22] MEDS: COLACE CAP 100 MG PO SCH (20:58)
[2020-06-23] MEDS: ROBITUSSIN DM PO SCH ×6 (02:34→21:34)
[2020-06-23 05:56] LABS: ABG BASE EXCESS 9.5 mmol/L (-2.0-2.0)
[2020-06-23 05:57] LABS: ABG ALLEN TEST POS; ABG HCO3 33.5 mmol/L (22-26)
[2020-06-23 05:59] LABS: ALANINE AMINOTRANSFERASE 21 Units/L (12-78); ALBUMIN 2.3 g/dL (3.4-5.0); ALKALINE PHOSPHATASE 73 Units/L (46-116); ASPARTATE AMINO TRANSFERASE 9 Units/L (15-37); BLOOD UREA NITROGEN 29 mg/dL (7-18); CALCIUM 8.6 mg/dL (8.5-10.1); CARBON DIOXIDE 28.7 mmol/L (21-32); CHLORIDE 109 mmol/L (98-107); COR NA(FOR HYPERGLY) 145 mmol/L (136-145); CREATININE 0.95 mg/dL (0.55-1.02); SODIUM 144 mmol/L (136-145); TOTAL PROTEIN 5.4 g/dL (6.4-8.2); eGFR NON BLACK RACES > 60 (>60)
[2020-06-23 06:06] LABS: BASOPHILS # (AUTO) 0.1 X10^3/uL (0.0-0.1); BASOPHILS % (AUTO) 0.6 % (0.2-1.0); EOSINOPHILS % (AUTO) 0.3 % (0.9-2.9); HEMATOCRIT 29.9 % (36.0-47.0); HEMOGLOBIN 9.7 g/dL (12.0-16.0); LYMPHOCYTES # (AUTO) 2.4 X10^3/uL (1.3-2.9); LYMPHOCYTES % (AUTO) 17.8 % (21.0-51.0); MEAN CORPUSCULAR HEMOGLOBIN 27.1 pg (27.0-34.0); MEAN CORPUSCULAR HGB CONC 32.5 g/dL (33.0-35.0); MEAN CORPUSCULAR VOLUME 83.4 fL (80.0-100.0); MEAN PLATELET VOLUME 9.5 fL (7.4-11.0); MONOCYTES # (AUTO) 0.5 x10^3/uL (0.3-0.8); MONOCYTES % (AUTO) 3.7 % (0.0-13.0); NEUTROPHILS # (AUTO) 10.5 x10^3/uL (2.2-4.8); NEUTROPHILS % (AUTO) 77.6 % (42.0-75.0); PLATELET COUNT 143 X10^3/uL (150.0-450.0); RED BLOOD COUNT 3.59 X10^6/uL (3.5-5.4); RED CELL DISTRIBUTION WIDTH 15.2 % (11.6-16.5); WHITE BLOOD COUNT 13.6 X10^3/uL (3.6-10.0)
[2020-06-23] MEDS: PULMICORT NEB TX 0.5 MG NEB SCH ×2 (09:15→20:10)
[2020-06-23] MEDS: DUONEB 0.5 MG/3 MG (3 mL) NEB SCH ×4 (09:15→20:10)
[2020-06-23] MEDS: DIFLUCAN 200 MG IV PREMIX* 200 MG/100 ML BAG IV SCH (09:30)
[2020-06-23] MEDS: SOLU-Medrol 125 MG VIAL IVP SCH ×2 (09:33→21:33)
[2020-06-23] MEDS: PROTONIX INJ 40 MG VIAL IVP SCH ×2 (09:34→21:34)
[2020-06-23] MEDS: MILK OF MAGNESIA PO SCH ×2 (09:34→21:34)
[2020-06-23] MEDS: COZAAR PO SCH (09:34)
[2020-06-23] MEDS: NORVASC TAB 5 MG PO SCH (09:34)
[2020-06-23] MEDS: TRICOR TAB 160 MG PO SCH (09:35)
[2020-06-23] MEDS: LOVENOX INJ 30 MG SYR SC SCH ×2 (09:36→21:34)
[2020-06-23] MEDS: LEVAQUIN PREMIX IV 500 MG 500 MG/100 ML BAG IV SCH (09:37)
[2020-06-23] MEDS: VOLTAREN 1 % GEL MULTI DOSE TUBE TOP SCH ×4 (09:38→21:43)
--- NOTE | 2020-06-23 10:22 | RAD ---
CHEST, 1 VIEWHISTORY: PNEUMONIAStudy: Single view of the chest.Comparison:NoneFindings:The cardiomediastinal silhouette is normal. Bilateral interstitial prominence, possible early alveolar infiltrates. No focal consolidations, pleural effusions or pneumothorax. Osseous structures demonstrate no acute abnormality.IMPRESSION:1. Bilateral interstitial prominence and early alveolar infiltrates. Findings may represent atypical infection, including viral etiologies.Electronically signed by: GERTRUDIS BETANCOURT (Jun 23, 2020 10:21:18)
[2020-06-23] MEDS: ULTRAM PO PRN (10:57)
[2020-06-23] MEDS: HumuLIN R SUBCUT PRN ×3 (11:44→21:43)
[2020-06-23] MEDS ORDERED: NS 1/2 1000 ML IV 1,000 ML IV ONE (15:27)
[2020-06-23] MEDS: NS 1/2 1000 ML IV 1,000 ML IV SCH ×3 (15:31→18:25)
[2020-06-23] MEDS: SNACK - Diabetic Appropriate PO SCH (20:30)
[2020-06-23] MEDS: LEVEMIR SC SCH (21:37)
[2020-06-23] MEDS: COLACE CAP 100 MG PO SCH (21:44)
[2020-06-24] MEDS: NS 1/2 1000 ML IV 1,000 ML IV SCH ×2 (01:09→11:48)
[2020-06-24] MEDS: ROBITUSSIN DM PO SCH ×6 (01:09→20:34)
[2020-06-24 05:19] LABS: ABG ALLEN TEST POS; ABG BASE EXCESS 5.6 mmol/L (-2.0-2.0); ABG HCO3 29.8 mmol/L (22-26)
[2020-06-24] MEDS: HumuLIN R SUBCUT PRN ×4 (05:27→20:31)
--- NOTE | 2020-06-24 06:01 | RAD ---
HISTORYSOBSTUDYAP [id number] is no significant change in appearance of heart or lungs. Similar extent and distribution of bilateral interstitial and airspace disease. No significant pleural fluid component or extrapulmonary air identified.IMPRESSIONNo significant change in appearance of the bilateral pneumonia.Electronically signed by: MISTY HAUSER (Jun 24, 2020 05:58:53)
[2020-06-24 06:23] LABS: ALANINE AMINOTRANSFERASE 25 Units/L (12-78); ALBUMIN 2.4 g/dL (3.4-5.0); ALKALINE PHOSPHATASE 77 Units/L (46-116); ASPARTATE AMINO TRANSFERASE 8 Units/L (15-37); BASOPHILS % (AUTO) 0.3 % (0.2-1.0); BLOOD UREA NITROGEN 28 mg/dL (7-18); CALCIUM 8.7 mg/dL (8.5-10.1); CARBON DIOXIDE 27.6 mmol/L (21-32); CHLORIDE 108 mmol/L (98-107); COR NA(FOR HYPERGLY) 145 mmol/L (136-145); CREATININE 0.83 mg/dL (0.55-1.02); EOSINOPHILS % (AUTO) 0.1 % (0.9-2.9); HEMATOCRIT 30.3 % (36.0-47.0); LYMPHOCYTES # (AUTO) 0.3 X10^3/uL (1.3-2.9); LYMPHOCYTES % (AUTO) 3.4 % (21.0-51.0); MEAN CORPUSCULAR HEMOGLOBIN 27.6 pg (27.0-34.0); MEAN CORPUSCULAR VOLUME 83.5 fL (80.0-100.0); MEAN PLATELET VOLUME 9.4 fL (7.4-11.0); MONOCYTES # (AUTO) 0.2 x10^3/uL (0.3-0.8); MONOCYTES % (AUTO) 1.6 % (0.0-13.0); NEUTROPHILS % (AUTO) 94.6 % (42.0-75.0); PLATELET COUNT 131 X10^3/uL (150.0-450.0); RED BLOOD COUNT 3.63 X10^6/uL (3.5-5.4); RED CELL DISTRIBUTION WIDTH 15.9 % (11.6-16.5); SODIUM 142 mmol/L (136-145); TOTAL PROTEIN 5.6 g/dL (6.4-8.2); WHITE BLOOD COUNT 9.5 X10^3/uL (3.6-10.0); eGFR NON BLACK RACES > 60 (>60)
[2020-06-24 07:18] LABS: BAND NEUTROPHILS % 3 % (0-10)
[2020-06-24 07:19] LABS: PLATELET MORPHOLOGY COMMENT NORMAL (NORMAL)
[2020-06-24] MEDS: NORVASC TAB 5 MG PO SCH (09:13)
[2020-06-24] MEDS: DIFLUCAN 200 MG IV PREMIX* 200 MG/100 ML BAG IV SCH (09:13)
[2020-06-24] MEDS: PROTONIX INJ 40 MG VIAL IVP SCH ×2 (09:14→20:34)
[2020-06-24] MEDS: SOLU-Medrol 125 MG VIAL IVP SCH ×2 (09:14→20:34)
[2020-06-24] MEDS: COZAAR PO SCH (09:15)
[2020-06-24] MEDS: MILK OF MAGNESIA PO SCH ×2 (09:15→20:32)
[2020-06-24] MEDS: LEVAQUIN PREMIX IV 500 MG 500 MG/100 ML BAG IV SCH (09:15)
[2020-06-24] MEDS: PULMICORT NEB TX 0.5 MG NEB SCH ×2 (09:16→20:44)
[2020-06-24] MEDS: TRICOR TAB 160 MG PO SCH (09:16)
[2020-06-24] MEDS: DUONEB 0.5 MG/3 MG (3 mL) NEB SCH ×4 (09:16→20:44)
[2020-06-24] MEDS: VOLTAREN 1 % GEL MULTI DOSE TUBE TOP SCH ×4 (09:18→20:35)
[2020-06-24] MEDS: LOVENOX INJ 30 MG SYR SC SCH ×2 (09:53→20:34)
[2020-06-24] MEDS ORDERED: NS 1/2 1000 ML IV 1,000 ML IV ONE (11:27)
[2020-06-24] MEDS: SNACK - Diabetic Appropriate PO SCH (20:32)
[2020-06-24] MEDS: LEVEMIR SC SCH (20:32)
[2020-06-24] MEDS: COLACE CAP 100 MG PO SCH (20:32)
[2020-06-25] MEDS: ROBITUSSIN DM PO SCH ×6 (01:15→20:30)
[2020-06-25 04:40] LABS: BASOPHILS % (AUTO) 0.3 % (0.2-1.0); HEMATOCRIT 28.9 % (36.0-47.0); HEMOGLOBIN 9.2 g/dL (12.0-16.0); LYMPHOCYTES # (AUTO) 0.4 X10^3/uL (1.3-2.9); LYMPHOCYTES % (AUTO) 3.9 % (21.0-51.0); MEAN CORPUSCULAR HEMOGLOBIN 26.7 pg (27.0-34.0); MEAN CORPUSCULAR HGB CONC 31.8 g/dL (33.0-35.0); MEAN PLATELET VOLUME 9.5 fL (7.4-11.0); MONOCYTES # (AUTO) 0.3 x10^3/uL (0.3-0.8); MONOCYTES % (AUTO) 2.8 % (0.0-13.0); NEUTROPHILS # (AUTO) 10.3 x10^3/uL (2.2-4.8); PLATELET COUNT 138 X10^3/uL (150.0-450.0); RED BLOOD COUNT 3.44 X10^6/uL (3.5-5.4); RED CELL DISTRIBUTION WIDTH 15.6 % (11.6-16.5); WHITE BLOOD COUNT 11.1 X10^3/uL (3.6-10.0)
[2020-06-25 04:53] LABS: ALANINE AMINOTRANSFERASE 22 Units/L (12-78); ALBUMIN 2.4 g/dL (3.4-5.0); ALKALINE PHOSPHATASE 72 Units/L (46-116); ASPARTATE AMINO TRANSFERASE 9 Units/L (15-37); BLOOD UREA NITROGEN 26 mg/dL (7-18); CALCIUM 8.7 mg/dL (8.5-10.1); CARBON DIOXIDE 25.8 mmol/L (21-32); CHLORIDE 107 mmol/L (98-107); COR NA(FOR HYPERGLY) 144 mmol/L (136-145); CREATININE 0.82 mg/dL (0.55-1.02); SODIUM 142 mmol/L (136-145); TOTAL PROTEIN 5.4 g/dL (6.4-8.2); eGFR NON BLACK RACES > 60 (>60)
[2020-06-25] MEDS: NS 1/2 1000 ML IV 1,000 ML IV SCH ×4 (04:55→19:41)
[2020-06-25 05:14] LABS: PLATELET MORPHOLOGY COMMENT NORMAL (NORMAL)
[2020-06-25] MEDS: HumuLIN R SUBCUT PRN ×4 (05:45→20:30)
[2020-06-25 05:57] LABS: ABG ALLEN TEST POS; ABG BASE EXCESS 5.2 mmol/L (-2.0-2.0)
--- NOTE | 2020-06-25 06:44 | RAD ---
HISTORYSOBSTUDYAP chestCOMPARISONMar 2020FINDINGSThere is no change in appearance of heart or lungs. Similar extent and distribution of bilateral airspace disease. There are no new areas of involvement, complicating pneumothorax or large pleural effusion.IMPRESSIONNo change in appearance of the bilateral pneumonia.Electronically signed by: MISTY HAUSER (Jun 25, 2020 06:42:25)
[2020-06-25] MEDS: DUONEB 0.5 MG/3 MG (3 mL) NEB SCH ×4 (09:03→21:05)
[2020-06-25] MEDS: PULMICORT NEB TX 0.5 MG NEB SCH ×2 (09:03→21:05)
[2020-06-25] MEDS: SOLU-Medrol 125 MG VIAL IVP SCH ×2 (09:11→20:30)
[2020-06-25] MEDS: LOVENOX INJ 30 MG SYR SC SCH ×2 (09:11→20:30)
[2020-06-25] MEDS: DIFLUCAN 200 MG IV PREMIX* 200 MG/100 ML BAG IV SCH (09:11)
[2020-06-25] MEDS: COZAAR PO SCH (09:12)
[2020-06-25] MEDS: NORVASC TAB 5 MG PO SCH (09:12)
[2020-06-25] MEDS: PROTONIX INJ 40 MG VIAL IVP SCH ×2 (09:13→20:30)
[2020-06-25] MEDS: MILK OF MAGNESIA PO SCH ×2 (09:13→22:46)
[2020-06-25] MEDS: LEVAQUIN PREMIX IV 500 MG 500 MG/100 ML BAG IV SCH (09:14)
[2020-06-25] MEDS: TRICOR TAB 160 MG PO SCH (09:14)
[2020-06-25] MEDS: VOLTAREN 1 % GEL MULTI DOSE TUBE TOP SCH ×4 (09:14→20:30)
[2020-06-25] MEDS: CATAPRES-TTS-2 TD SCH (09:35)
[2020-06-25] MEDS ORDERED: NS 1/2 1000 ML IV 1,000 ML IV ONE (11:48)
--- NOTE | 2020-06-25 16:01 | PCM.PROG ---
Progress Note - Progress Note for Day of Date of Exam: 06/24/20 - Subjective Subjective: The patient is a 59-year-old white female patient of who is suffering from complications from COVID-19 including pneumonia and hypoxia. Since admission, the patient has been on IV antibiotics, respiratory therapy, supplemental oxygen, along with corticosteroid therapy. She has c ompleted five days of IV Remdesivir. Staff has been working with the patient and respiratory therapy with her to wean her down to nasal cannula and be stable for discharge home. She was on 5 liters nasal cannula yesterday. She remains on 5 liters this morning and is saturating 90-93%. Her PO2 on 40% as 65 and yesterday it was 51, so I feel that she is adapting to decreasing supplemental oxygen. Her blood pressure was 119/71 and she has been afebrile. The patients renal function is stable with a BUN of 28 and creatinine of 0.83. Her glucose was at 217 this morning and she does have a history of diabetes and she is currently receiving basal insulin along with sliding scale insulin coverage. She denies any chest pain. No headache, nausea and vomiting, diarrhea, or constipation. On exam, the patient is awake, alert, and oriented. She continues with complaints of shortness of breath and more on exertion. She appears to be in mild distress while talking to us. She has diffuse diminished lung sounds throughout. Heart rate is a controlled, normal rate and rhythm. Abdomen is soft and nontender. Bowel sounds are present times all four quadrants. She has no upper or lower extremity edema noted. She does have diffuse upper and lower extremity muscle atrophy and just generalized weakness. Today, we will continue with iv antibiotics, respiratory therapy, supplemental oxygen, pulmonary toileting, and aggressive RT weaning of oxygen requirements. We will continue with insulin coverage and basal insulin. We will also continue with anti-hypertensives. Otherwise, we plan to follow up with AM labs and continue to monitor. Time spent on clinical assessment, reviewing labs and imaging, decision making, and documentation greater than 75 minutes. - Past Medical Family Social History Past Med/Fam/Surg Hx: No changes since H&P Allergies: Allergies epinephrine Allergy (Verified 10/04/19 23:45) lidocaine Allergy (Verified 10/04/19 23:45) - Review of Systems ROS: No change since H&P - Vital Signs and I&O's Vital Signs: Temperature 98.1 F Pulse Rate [Left Brachial] 80 Pulse Rate 102 Respiratory Rate 34 Blood Pressure [left] 151/80 Blood Pressure [Right Arm] 169/83 Blood Pressure [Left Arm] 144/70 Blood Pressure 138/81 O2 Sat by Pulse Oximetry 93 Intake and Output: Intake & Output 06/23/20 06/24/20 06/25/20 06/26/20 11:59 11:59 11:59 11:59 Intake Total 3150 / 3150 3568 / 3568 3151 / 3151 Balance 3150 / 3150 3568 / 3568 3151 / 3151 - Physical Exam Oriented: Normal Eyes: Normal Ear: Normal Nose: Normal Throat: Dry Respiratory: Generalized, Diminished Cardiovascular: Normal : Normal Auscultation: Bowel Sounds: Normal Palpation: Normal Tenderness: Normal Skin: Decreased Turgur Musculoskeletal: Back:Lumbar Psychiatric: Anxiety Affect: Anxious Speech Pattern: Clear, Appropriate - Laboratory and Diagnostics Result Diagrams: 06/25/20 04:15 06/25/20 04:15 Labs: 06/09/20 08:20 Blood Blood Culture - Final 06/09/20 08:33 Blood Blood Culture - Final 06/09/20 15:45 Sputum - Expectorated Sputum Sputum Culture - Final 06/09/20 15:45 Sputum - Expectorated Sputum - Final 06/07/20 14:50 Sputum - Expectorated Sputum Sputum Culture - Final 06/07/20 14:50 Sputum - Expectorated Sputum - Final 05/31/20 09:01 Blood Blood Culture - Final Staphylococcus Epidermidis 05/31/20 08:50 Blood Blood Culture - Final Staphylococcus Epidermidis 05/29/20 01:50 Blood Blood Culture - Final 05/29/20 01:10 Blood Blood Culture - Final Laboratory WBC 11.1 X10^3/uL (3.6-10.0) H 06/25/20 04:15 RBC 3.44 X10^6/uL (3.5-5.4) L 06/25/20 04:15 Hgb 9.2 g/dL (12.0-16.0) L 06/25/20 04:15 Hct 28.9 % (36.0-47.0) L 06/25/20 04:15 MCV 84.0 fL (80.0-100.0) 06/25/20 04:15 MCH 26.7 pg (27.0-34.0) L 06/25/20 04:15 MCHC 31.8 g/dL (33.0-35.0) L 06/25/20 04:15 RDW 15.6 % (11.6-16.5) 06/25/20 04:15 Plt Count 138 X10^3/uL (150.0-450.0) L 06/25/20 04:15 Plt Count Comment Decreased (ADEQUATE) A 06/25/20 04:15 MPV 9.5 fL (7.4-11.0) 06/25/20 04:15 Neut % (Auto) 93.0 % (42.0-75.0) H 06/25/20 04:15 Lymph % (Auto) 3.9 % (21.0-51.0) L 06/25/20 04:15 [place] % (Auto) 2.8 % (0.0-13.0) 06/25/20 04:15 Eos % (Auto) 0.0 % (0.9-2.9) L 06/25/20 04:15 Baso % (Auto) 0.3 % (0.2-1.0) 06/25/20 04:15 Neut # (Auto) 10.3 x10^3/uL (2.2-4.8) H 06/25/20 04:15 Lymph # (Auto) 0.4 X10^3/uL (1.3-2.9) L 06/25/20 04:15 [place] # (Auto) 0.3 x10^3/uL (0.3-0.8) 06/25/20 04:15 Eos # (Auto) 0.0 x10^3/uL (0.0-0.2) 06/25/20 04:15 Baso # (Auto) 0.0 X10^3/uL (0.0-0.1) 06/25/20 04:15 Absolute Nucleated RBC 0.0 /100WBC 06/25/20 04:15 Total Counted 100 06/25/20 04:15 Neutrophils % (Manual) 94 % (39-76) H 06/25/20 04:15 Band Neutrophils % 3 % (0-10) 06/24/20 05:20 Lymphocytes % (Manual) 6 % (13-43) L 06/25/20 04:15 Monocytes % (Manual) 1 % (4-9) L 06/24/20 05:20 Eosinophils % (Manual) 2 % (0-6) 06/24/20 05:20 Myelocytes % 1 06/13/20 05:00 Plt Morphology Comment Normal (NORMAL) 06/25/20 04:15 RBC Morphology Normal (NORMAL) 06/25/20 04:15 Hypochromasia Slight A 06/22/20 09:30 Poikilocytosis Slight A 06/22/20 09:30 Anisocytosis Slight A 06/22/20 09:30 D-Dimer 1.73 ug/ml (0.0-0.57) H* 06/19/20 16:10 Sample Site Rr 06/25/20 05:00 ABG pH 7.480 (7.35-7.45) H 06/25/20 05:00 ABG pCO2 39.0 mmHg (35.0-45.0) 06/25/20 05:00 ABG pO2 61.0 mmHg (80.0-100.0) L 06/25/20 05:00 ABG HCO3 29.0 mmol/L (22-26) H 06/25/20 05:00 ABG O2 Saturation 93.0 % (90-100) 06/25/20 05:00 ABG Base Excess 5.2 mmol/L (-2.0-2.0) H 06/25/20 05:00 Aniket Test Pos 06/25/20 05:00 A-a Gradient 147.0 mmHg 06/25/20 05:00 FiO2 36.0 06/25/20 05:00 Blood Gas Comments Teddy well sw 06/25/20 05:00 Sodium 142 mmol/L (136-145) 06/25/20 04:15 Corrected Sodium 144 mmol/L (136-145) 06/25/20 04:15 Potassium 4.5 mmol/L (3.5-5.1) 06/25/20 04:15 Chloride 107 mmol/L (98-107) 06/25/20 04:15 Carbon Dioxide 25.8 mmol/L (21-32) 06/25/20 04:15 BUN 26 mg/dL (7-18) H 06/25/20 04:15 Creatinine 0.82 mg/dL (0.55-1.02) 06/25/20 04:15 Est GFR (MDRD) Af Amer > 60 (>60) 06/25/20 04:15 Est GFR (MDRD) Non-Af > 60 (>60) 06/25/20 04:15 Glucose 177 mg/dL (65-99) H 06/25/20 04:15 POC Glucose (mg/dL) 215 mg/dL (65-99) H 06/25/20 11:59 Lactic Acid 0.9 mmol/L (0.4-2.0) 06/02/20 08:55 Calcium 8.7 mg/dL (8.5-10.1) 06/25/20 04:15 Corrected Calcium 10.0 mg/dL (8.5-10.1) 06/25/20 04:15 Magnesium 2.0 mg/dL (1.7-2.9) 06/13/20 05:00 Ferritin 746 ng/mL (8-252) H 05/29/20 01:55 Total Bilirubin 0.30 mg/dL (0.2-1.0) 06/25/20 04:15 AST 9 Units/L (15-37) L 06/25/20 04:15 ALT 22 Units/L (12-78) 06/25/20 04:15 Alkaline Phosphatase 72 Units/L (46-116) 06/25/20 04:15 Creatine Kinase 32 Units/L (26-192) 06/20/20 05:20 CK-MB (CK-2) 1.0 ng/mL (0-4.0) 06/20/20 05:20 CK/CKMB % Calc 3.1 % (<4) 06/20/20 05:20 Troponin I < 0.02 ng/mL (0-1.5) 06/20/20 05:20 C-Reactive Protein 4.00 mg/L (0-3.0) H 06/25/20 04:15 B-Natriuretic Peptide 24.3 pg/mL (0-79) 05/29/20 01:55 Total Protein 5.4 g/dL (6.4-8.2) L 06/25/20 04:15 Albumin 2.4 g/dL (3.4-5.0) L 06/25/20 04:15 Globulin 3.0 g/dL (2.5-4.5) 06/25/20 04:15 Albumin/Globulin Ratio 0.8 Ratio (1.1-2.1) L 06/25/20 04:15 Specimen Type Clean catch urine 06/19/20 15:50 Urine Color Yellow (YELLOW) 06/19/20 15:50 Urine Appearance Clear (CLEAR) 06/19/20 15:50 Urine pH 8.0 (5.0 - 8.0) 06/19/20 15:50 Ur Specific [place] 1.010 (1.000-1.030) 06/19/20 15:50 Urine Protein Negative (NEGATIVE) 06/19/20 15:50 Urine Glucose (UA) 4+ (NEGATIVE) 06/19/20 15:50 Urine Ketones 1+ (NEGATIVE) 06/19/20 15:50 Urine Occult Blood 1+ (NEGATIVE) 06/19/20 15:50 Urine Nitrite Negative (NEGATIVE) 06/19/20 15:50 Urine Bilirubin Negative (NEGATIVE) 06/19/20 15:50 Urine Acetone Large (NEGATIVE) H 06/01/20 13:50 Urine Urobilinogen Normal (NORMAL) 06/19/20 15:50 Ur Leukocyte Esterase Negative (NEGATIVE) 06/19/20 15:50 Urine RBC 0-2 /HPF (0-3) 06/19/20 15:50 Urine WBC None seen /HPF (0-5) 06/19/20 15:50 Ur Squamous Epith Cells Rare /HPF (NEGATIVE) 06/19/20 15:50 Urine Bacteria Negative /HPF (NEGATIVE) 06/19/20 15:50 Urine Yeast Many /HPF (NEGATIVE) 05/31/20 19:30 Ur Culture Indicated? No/not indicated 06/19/20 15:50 Acetone, Semi-Quant Negative (NEGATIVE) 06/19/20 16:10 SARS CoV-2 RNA Rapid MARILU Positive (NEGATIVE) A 05/29/20 02:05 - Plan (1) COVID-19 virus infection Status: Acute Plan: IV HYDRATION, IV ANTIBIOTICS. BS AND BP CONTROL, DDIMER. CARDIAC MONITORING, SSI. IV HYDRATION, STRICT I&OS. IV REMDESIVIR COMPLETED 5 DOSES (2) Essential hypertension Status: Chronic (3) Diabetes mellitus with hyperglycemia Status: Acute Qualifiers: Diabetes mellitus type: type 2 Diabetes mellitus terminal manager insulin use: without terminal manager use Qualified Code(s): E11.65 - Type 2 diabetes mellitus with hyperglycemia (4) Generalized weakness Status: Acute (5) Adult failure to thrive Status: Acute
--- NOTE | 2020-06-25 16:05 | PCM.PROG ---
Progress Note - Progress Note for Day of Date of Exam: 06/25/20 - Subjective Subjective: The patient is a 59-year-old white female patient of who is suffering from complications from COVID-19 including pneumonia and hypoxia. Since admission, the patient has been on IV antibiotics, respiratory therapy, supplemental oxygen, along with corticosteroid therapy. She has c ompleted five days of IV Remdesivir. Staff has been working with the patient and respiratory therapy with her to wean her down to nasal cannula and be stable for discharge home. She was on 5 liters nasal cannula yesterday. She remains on 4 liters this morning and is saturating 92-95%. Her PO2 on 36% as 61 and yesterday it was 65 on 40%. Her blood pressure was 133/76 and she has been afebrile. The patients renal function is stable with a BUN of 26 and creatinine of 0.82. Her glucose was at 177 this morning and she does have a history of diabetes and she is currently receiving basal insulin along with sliding scale insulin coverage. She denies any chest pain. No headache, nausea and vomiting, diarrhea, or constipation. On exam, the patient is awake, alert, and oriented. She continues with complaints of shortness of breath and more on exertion. She appears to be in mild distress while talking to us. She has diffuse diminished lung sounds throughout. Heart rate is a controlled, normal rate and rhythm. Abdomen is soft and nontender. Bowel sounds are present times all four quadrants. She has no upper or lower extremity edema noted. She does have diffuse upper and lower extremity muscle atrophy and just generalized weakness. Today, we will continue with iv antibiotics, respiratory therapy, supplemental oxygen, pulmonary toileting, and aggressive RT weaning of oxygen requirements. We will continue with insulin coverage and basal insulin. We will also continue with anti-hypertensives. Otherwise, we plan to follow up with AM labs and continue to monitor. Time spent on clinical assessment, reviewing labs and imaging, decision making, and documentation greater than 75 minutes. - Past Medical Family Social History Past Med/Fam/Surg Hx: No changes since H&P Allergies: Allergies epinephrine Allergy (Verified 10/04/19 23:45) lidocaine Allergy (Verified 10/04/19 23:45) - Review of Systems ROS: No change since H&P - Vital Signs and I&O's Vital Signs: Temperature 98.1 F Pulse Rate [Left Brachial] 80 Pulse Rate 102 Respiratory Rate 34 Blood Pressure [left] 151/80 Blood Pressure [Right Arm] 169/83 Blood Pressure [Left Arm] 144/70 Blood Pressure 138/81 O2 Sat by Pulse Oximetry 93 Intake and Output: Intake & Output 06/23/20 06/24/20 06/25/20 06/26/20 11:59 11:59 11:59 11:59 Intake Total 3150 / 3150 3568 / 3568 3151 / 3151 Balance 3150 / 3150 3568 / 3568 3151 / 3151 - Physical Exam Oriented: Normal Eyes: Normal Ear: Normal Nose: Normal Throat: Dry Respiratory: Generalized, Diminished Cardiovascular: Normal : Normal Auscultation: Bowel Sounds: Normal Tenderness: Normal Skin: Decreased Turgur Musculoskeletal: Back:Lumbar Psychiatric: Anxiety Affect: Anxious Speech Pattern: Clear, Appropriate - Laboratory and Diagnostics Result Diagrams: 06/25/20 04:15 06/25/20 04:15 Labs: 06/09/20 08:20 Blood Blood Culture - Final 06/09/20 08:33 Blood Blood Culture - Final 06/09/20 15:45 Sputum - Expectorated Sputum Sputum Culture - Final 06/09/20 15:45 Sputum - Expectorated Sputum - Final 06/07/20 14:50 Sputum - Expectorated Sputum Sputum Culture - Final 06/07/20 14:50 Sputum - Expectorated Sputum - Final 05/31/20 09:01 Blood Blood Culture - Final Staphylococcus Epidermidis 05/31/20 08:50 Blood Blood Culture - Final Staphylococcus Epidermidis 05/29/20 01:50 Blood Blood Culture - Final 05/29/20 01:10 Blood Blood Culture - Final Laboratory WBC 11.1 X10^3/uL (3.6-10.0) H 06/25/20 04:15 RBC 3.44 X10^6/uL (3.5-5.4) L 06/25/20 04:15 Hgb 9.2 g/dL (12.0-16.0) L 06/25/20 04:15 Hct 28.9 % (36.0-47.0) L 06/25/20 04:15 MCV 84.0 fL (80.0-100.0) 06/25/20 04:15 MCH 26.7 pg (27.0-34.0) L 06/25/20 04:15 MCHC 31.8 g/dL (33.0-35.0) L 06/25/20 04:15 RDW 15.6 % (11.6-16.5) 06/25/20 04:15 Plt Count 138 X10^3/uL (150.0-450.0) L 06/25/20 04:15 Plt Count Comment Decreased (ADEQUATE) A 06/25/20 04:15 MPV 9.5 fL (7.4-11.0) 06/25/20 04:15 Neut % (Auto) 93.0 % (42.0-75.0) H 06/25/20 04:15 Lymph % (Auto) 3.9 % (21.0-51.0) L 06/25/20 04:15 [place] % (Auto) 2.8 % (0.0-13.0) 06/25/20 04:15 Eos % (Auto) 0.0 % (0.9-2.9) L 06/25/20 04:15 Baso % (Auto) 0.3 % (0.2-1.0) 06/25/20 04:15 Neut # (Auto) 10.3 x10^3/uL (2.2-4.8) H 06/25/20 04:15 Lymph # (Auto) 0.4 X10^3/uL (1.3-2.9) L 06/25/20 04:15 [place] # (Auto) 0.3 x10^3/uL (0.3-0.8) 06/25/20 04:15 Eos # (Auto) 0.0 x10^3/uL (0.0-0.2) 06/25/20 04:15 Baso # (Auto) 0.0 X10^3/uL (0.0-0.1) 06/25/20 04:15 Absolute Nucleated RBC 0.0 /100WBC 06/25/20 04:15 Total Counted 100 06/25/20 04:15 Neutrophils % (Manual) 94 % (39-76) H 06/25/20 04:15 Band Neutrophils % 3 % (0-10) 06/24/20 05:20 Lymphocytes % (Manual) 6 % (13-43) L 06/25/20 04:15 Monocytes % (Manual) 1 % (4-9) L 06/24/20 05:20 Eosinophils % (Manual) 2 % (0-6) 06/24/20 05:20 Myelocytes % 1 06/13/20 05:00 Plt Morphology Comment Normal (NORMAL) 06/25/20 04:15 RBC Morphology Normal (NORMAL) 06/25/20 04:15 Hypochromasia Slight A 06/22/20 09:30 Poikilocytosis Slight A 06/22/20 09:30 Anisocytosis Slight A 06/22/20 09:30 D-Dimer 1.73 ug/ml (0.0-0.57) H* 06/19/20 16:10 Sample Site Rr 06/25/20 05:00 ABG pH 7.480 (7.35-7.45) H 06/25/20 05:00 ABG pCO2 39.0 mmHg (35.0-45.0) 06/25/20 05:00 ABG pO2 61.0 mmHg (80.0-100.0) L 06/25/20 05:00 ABG HCO3 29.0 mmol/L (22-26) H 06/25/20 05:00 ABG O2 Saturation 93.0 % (90-100) 06/25/20 05:00 ABG Base Excess 5.2 mmol/L (-2.0-2.0) H 06/25/20 05:00 Aniket Test Pos 06/25/20 05:00 A-a Gradient 147.0 mmHg 06/25/20 05:00 FiO2 36.0 06/25/20 05:00 Blood Gas Comments Teddy well sw 06/25/20 05:00 Sodium 142 mmol/L (136-145) 06/25/20 04:15 Corrected Sodium 144 mmol/L (136-145) 06/25/20 04:15 Potassium 4.5 mmol/L (3.5-5.1) 06/25/20 04:15 Chloride 107 mmol/L (98-107) 06/25/20 04:15 Carbon Dioxide 25.8 mmol/L (21-32) 06/25/20 04:15 BUN 26 mg/dL (7-18) H 06/25/20 04:15 Creatinine 0.82 mg/dL (0.55-1.02) 06/25/20 04:15 Est GFR (MDRD) Af Amer > 60 (>60) 06/25/20 04:15 Est GFR (MDRD) Non-Af > 60 (>60) 06/25/20 04:15 Glucose 177 mg/dL (65-99) H 06/25/20 04:15 POC Glucose (mg/dL) 215 mg/dL (65-99) H 06/25/20 11:59 Lactic Acid 0.9 mmol/L (0.4-2.0) 06/02/20 08:55 Calcium 8.7 mg/dL (8.5-10.1) 06/25/20 04:15 Corrected Calcium 10.0 mg/dL (8.5-10.1) 06/25/20 04:15 Magnesium 2.0 mg/dL (1.7-2.9) 06/13/20 05:00 Ferritin 746 ng/mL (8-252) H 05/29/20 01:55 Total Bilirubin 0.30 mg/dL (0.2-1.0) 06/25/20 04:15 AST 9 Units/L (15-37) L 06/25/20 04:15 ALT 22 Units/L (12-78) 06/25/20 04:15 Alkaline Phosphatase 72 Units/L (46-116) 06/25/20 04:15 Creatine Kinase 32 Units/L (26-192) 06/20/20 05:20 CK-MB (CK-2) 1.0 ng/mL (0-4.0) 06/20/20 05:20 CK/CKMB % Calc 3.1 % (<4) 06/20/20 05:20 Troponin I < 0.02 ng/mL (0-1.5) 06/20/20 05:20 C-Reactive Protein 4.00 mg/L (0-3.0) H 06/25/20 04:15 B-Natriuretic Peptide 24.3 pg/mL (0-79) 05/29/20 01:55 Total Protein 5.4 g/dL (6.4-8.2) L 06/25/20 04:15 Albumin 2.4 g/dL (3.4-5.0) L 06/25/20 04:15 Globulin 3.0 g/dL (2.5-4.5) 06/25/20 04:15 Albumin/Globulin Ratio 0.8 Ratio (1.1-2.1) L 06/25/20 04:15 Specimen Type Clean catch urine 06/19/20 15:50 Urine Color Yellow (YELLOW) 06/19/20 15:50 Urine Appearance Clear (CLEAR) 06/19/20 15:50 Urine pH 8.0 (5.0 - 8.0) 06/19/20 15:50 Ur Specific [place] 1.010 (1.000-1.030) 06/19/20 15:50 Urine Protein Negative (NEGATIVE) 06/19/20 15:50 Urine Glucose (UA) 4+ (NEGATIVE) 06/19/20 15:50 Urine Ketones 1+ (NEGATIVE) 06/19/20 15:50 Urine Occult Blood 1+ (NEGATIVE) 06/19/20 15:50 Urine Nitrite Negative (NEGATIVE) 06/19/20 15:50 Urine Bilirubin Negative (NEGATIVE) 06/19/20 15:50 Urine Acetone Large (NEGATIVE) H 06/01/20 13:50 Urine Urobilinogen Normal (NORMAL) 06/19/20 15:50 Ur Leukocyte Esterase Negative (NEGATIVE) 06/19/20 15:50 Urine RBC 0-2 /HPF (0-3) 06/19/20 15:50 Urine WBC None seen /HPF (0-5) 06/19/20 15:50 Ur Squamous Epith Cells Rare /HPF (NEGATIVE) 06/19/20 15:50 Urine Bacteria Negative /HPF (NEGATIVE) 06/19/20 15:50 Urine Yeast Many /HPF (NEGATIVE) 05/31/20 19:30 Ur Culture Indicated? No/not indicated 06/19/20 15:50 [place], Semi-Quant Negative (NEGATIVE) 06/19/20 16:10 SARS CoV-2 RNA Rapid MARILU Positive (NEGATIVE) A 05/29/20 02:05 - Plan (1) COVID-19 virus infection Status: Acute Plan: IV HYDRATION, IV ANTIBIOTICS. BS AND BP CONTROL, DDIMER. CARDIAC MONITORING, SSI. IV HYDRATION, STRICT I&OS. IV REMDESIVIR COMPLETED 5 DOSES (2) Essential hypertension Status: Chronic (3) Diabetes mellitus with hyperglycemia Status: Acute Qualifiers: Diabetes mellitus type: type 2 Diabetes mellitus senior living insulin use: without senior living use Qualified Code(s): E11.65 - Type 2 diabetes mellitus with hyperglycemia (4) Generalized weakness Status: Acute (5) Adult failure to thrive Status: Acute
[2020-06-25] MEDS: SNACK - Diabetic Appropriate PO SCH (19:43)
[2020-06-25] MEDS: LEVEMIR SC SCH (20:30)
[2020-06-25] MEDS: COLACE CAP 100 MG PO SCH (20:30)
[2020-06-25] MEDS: ZANAFLEX PO PRN (22:50)
[2020-06-26] MEDS: ROBITUSSIN DM PO SCH ×5 (03:39→12:43)
[2020-06-26 05:05] LABS: BASOPHILS % (AUTO) 0.3 % (0.2-1.0); HEMATOCRIT 30.1 % (36.0-47.0); HEMOGLOBIN 9.8 g/dL (12.0-16.0); LYMPHOCYTES # (AUTO) 0.4 X10^3/uL (1.3-2.9); LYMPHOCYTES % (AUTO) 4.5 % (21.0-51.0); MEAN CORPUSCULAR HEMOGLOBIN 27.4 pg (27.0-34.0); MEAN CORPUSCULAR HGB CONC 32.5 g/dL (33.0-35.0); MEAN CORPUSCULAR VOLUME 84.4 fL (80.0-100.0); MEAN PLATELET VOLUME 8.9 fL (7.4-11.0); MONOCYTES # (AUTO) 0.2 x10^3/uL (0.3-0.8); MONOCYTES % (AUTO) 2.2 % (0.0-13.0); NEUTROPHILS # (AUTO) 9.3 x10^3/uL (2.2-4.8); PLATELET COUNT 140 X10^3/uL (150.0-450.0); RED BLOOD COUNT 3.57 X10^6/uL (3.5-5.4); RED CELL DISTRIBUTION WIDTH 15.8 % (11.6-16.5)
[2020-06-26 05:23] LABS: ALANINE AMINOTRANSFERASE 26 Units/L (12-78); ALBUMIN 2.4 g/dL (3.4-5.0); ALKALINE PHOSPHATASE 69 Units/L (46-116); ASPARTATE AMINO TRANSFERASE 8 Units/L (15-37); BLOOD UREA NITROGEN 26 mg/dL (7-18); CALCIUM 8.8 mg/dL (8.5-10.1); CARBON DIOXIDE 27.1 mmol/L (21-32); CHLORIDE 109 mmol/L (98-107); COR CA(FOR HYPOALB) 10.1 mg/dL (8.5-10.1); COR NA(FOR HYPERGLY) 146 mmol/L (136-145); CREATININE 0.87 mg/dL (0.55-1.02); SODIUM 144 mmol/L (136-145); TOTAL PROTEIN 5.6 g/dL (6.4-8.2); eGFR NON BLACK RACES > 60 (>60)
[2020-06-26] MEDS: NS 1/2 1000 ML IV 1,000 ML IV SCH (05:43)
[2020-06-26 05:47] LABS: HYPOCHROMASIA 1+; PLATELET MORPHOLOGY COMMENT NORMAL (NORMAL)
[2020-06-26] MEDS: HumuLIN R SUBCUT PRN ×2 (06:30→12:26)
--- NOTE | 2020-06-26 07:30 | RAD ---
HISTORYShortness of breathSTUDYChest AP [id number] heart remains within normal limits in size. Bilateral alveolar infiltrates are again identified unchanged in degree or distribution from the prior examination. No pleural effusions are identified. Bony thorax is unremarkable.IMPRESSIONNo change bilateral alveolar infiltratesElectronically signed by: JANELLE KEITH (Jun 26, 2020 07:28:02)
[2020-06-26] MEDS: PULMICORT NEB TX 0.5 MG NEB SCH (09:04)
[2020-06-26] MEDS: DUONEB 0.5 MG/3 MG (3 mL) NEB SCH ×2 (09:04→12:19)
[2020-06-26 09:09] LABS: ABG HCO3 27.8 mmol/L (22-26)
[2020-06-26] MEDS: SOLU-Medrol 125 MG VIAL IVP SCH (09:15)
[2020-06-26] MEDS: DIFLUCAN 200 MG IV PREMIX* 200 MG/100 ML BAG IV SCH (09:15)
[2020-06-26] MEDS: LEVAQUIN PREMIX IV 500 MG 500 MG/100 ML BAG IV SCH (09:15)
[2020-06-26] MEDS: COZAAR PO SCH (09:15)
[2020-06-26] MEDS: LOVENOX INJ 30 MG SYR SC SCH (09:16)
[2020-06-26] MEDS: TRICOR TAB 160 MG PO SCH (09:16)
[2020-06-26] MEDS: NORVASC TAB 5 MG PO SCH (09:16)
[2020-06-26] MEDS: MILK OF MAGNESIA PO SCH (09:17)
[2020-06-26] MEDS: VOLTAREN 1 % GEL MULTI DOSE TUBE TOP SCH ×2 (09:17→12:26)
[2020-06-26] MEDS: PROTONIX INJ 40 MG VIAL IVP SCH (09:17)
[2020-06-26 13:45] VITALS: BP 138/81
== END 2020-06-26 14:55 | disposition home health service (06) | DRG 177 ==
LOC: ICU 23:21 → ER 23:21 → ICU 05-29 04:51
PROVIDERS: ADMIT Family Medicine; ATTEND Internal Medicine
DX: R27.0 Ataxia, unspecified; R62.7 Adult failure to thrive; E11.10 Type 2 diabetes mellitus with ketoacidosis without coma; E87.6 Hypokalemia; M54.9 Dorsalgia, unspecified; M54.6 Pain in thoracic spine; R51.9 Headache, unspecified; D68.9 Coagulation defect, unspecified; U07.1 COVID-19; E86.0 Dehydration; J12.81 Pneumonia due to SARS-associated coronavirus; R06.82 Tachypnea, not elsewhere classified; K52.9 Noninfective gastroenteritis and colitis, unspecified; I10 Essential (primary) hypertension; R41.82 Altered mental status, unspecified

== ENCOUNTER 2025-03-08 11:35 | Observation (INO) ==
[2025-03-08 12:36] LABS: MEAN PLATELET VOLUME 9.7 fL (7.4-11.0); RED CELL DISTRIBUTION WIDTH 15.0 % (11.6-16.5)
[2025-03-08 13:12] LABS: COR NA(FOR HYPERGLY) 144 mmol/L (136-145); CREATININE 1.35 mg/dL (0.55-1.02); eGFR NON BLACK RACES 42 (>60)
--- NOTE | 2025-03-08 13:16 | DR.EXTPAIN ---
HPI Time seen Time Seen by Provider: 03/08/25 12:03 PCP Primary Care Physician: Apple Complaint/Symptoms Chief Complaint Doctor Comments: Patient with worsening boil and ulcer on sacrum/right buttock was noticed on and has been getting bigger with draining on Friday. It is painful and very malodorous. Chief Complaint:: Pt states she noticed a "boil" on her right buttock on and it has progressively gotten bigger, started draining on Friday; she states it is painful, malodorous, draining bloody/clear purulence; she rates pain 7/10. 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 Family History History of Family Medical Conditions: Yes Family Medical History: Diabetes Mellitus and Hypertension Social History Does any household member use tobacco: No Alcohol Use: None Do you use any recreational Drugs:: No Lives With: Spouse Lives Where: Home Travel Risk Coronavirus risk:travel/contact w/high risk person: No Has patient experienced Coronavirus symptoms: No Infectious screening In the last 2 months have you had wt loss of >10#?: NO Have you had fever, night sweats or hemotysis?: No Have you traveled outside the country in the last 6 months?: No Isolation: Contact ROS Review of Systems Constitutional: No Symptoms Reported; negative Fever Eyes: No Symptoms Reported ENTM: No Symptoms Reported Respiratoy: No Symptoms Reported Cardiovascular: No Symptoms Reported Gastrointestinal/Abdominal: No Symptoms Reported Genitourinary: No Symptoms Reported Neurological: No Symptoms Reported Musculoskeletal: No Symptoms Reported Integumentary: See HPI Hematologic/Lymphatic: No Symptoms Reported Endocrine: No Symptoms Reported Psychiatric: No Symptoms Reported All Other Systems: Reviewed and Negative PE Vital Signs Vitals: Vital Signs Temperature 98.8 F Pulse Rate 106 Respiratory Rate 16 Blood Pressure 193/77 Blood Pressure 160/70 O2 Sat by Pulse Oximetry 97 General Limitations: No Limitations General Appearance: Alert and In No Apparent Distress Head Head Exam: Normal Inspection Eyes Eye exam: Normal Appearance Neck Neck Exam: Normal Inspection Chest Chest Inspection: Normal Inspection Respiratory Respiratory Exam: Normal Lung Sounds Bilat Cardiovascular Cardiovascular Exam: Regular Rate and Normal Rhythm Abdominal Exam Abdominal Exam: Normal Inspection, Normal Bowel Sounds and Soft Extremities Extremities Exam: Normal Inspection Back Back Exam: Normal Inspection Neurological Neurological Exam: Alert, Oriented X3 and CN II-XII Intact Psychiatric Psychiatric Exam: Normal Affect and Normal Mood Skin Skin Exam: Warm, Dry, Intact and Normal Color Type of Lesion: Other (Large decub ulcer with drainage.) ROR Labs Reviewed Laboratory Results Reviewed?: Yes 03/08/25 12:13 03/08/25 12:54 Laboratory: 03/08/25 12:06 Buttock Wound Gram Stain - Final WBC 9.7 X10^3/uL (3.6-10.0) 03/08/25 12:13 RBC 4.02 X10^6/uL (3.5-5.4) 03/08/25 12:13 Hgb 10.5 g/dL (12.0-16.0) L 03/08/25 12:13 Hct 33.8 % (36.0-47.0) L 03/08/25 12:13 MCV 84.0 fL (80.0-100.0) 03/08/25 12:13 MCH 26.0 pg (27.0-34.0) L 03/08/25 12:13 MCHC 31.0 g/dL (33.0-35.0) L 03/08/25 12:13 RDW 15.0 % (11.6-16.5) 03/08/25 12:13 Plt Count 267 X10^3/uL (150.0-450.0) 03/08/25 12:13 MPV 9.7 fL (7.4-11.0) 03/08/25 12:13 Neut % (Auto) 66.6 % (42.0-75.0) 03/08/25 12:13 Lymph % (Auto) 23.2 % (21.0-51.0) 03/08/25 12:13 Perry % (Auto) 8.0 % (0.0-13.0) 03/08/25 12:13 Eos % (Auto) 1.5 % (0.9-2.9) 03/08/25 12:13 Baso % (Auto) 0.7 % (0.2-1.0) 03/08/25 12:13 Neut # (Auto) 6.5 x10^3/uL (2.2-4.8) H 03/08/25 12:13 Lymph # (Auto) 2.3 X10^3/uL (1.3-2.9) 03/08/25 12:13 Perry # (Auto) 0.8 x10^3/uL (0.3-0.8) 03/08/25 12:13 Eos # (Auto) 0.1 x10^3/uL (0.0-0.2) 03/08/25 12:13 Baso # (Auto) 0.1 X10^3/uL (0.0-0.1) 03/08/25 12:13 Absolute Nucleated RBC 0.6 /100WBC 03/08/25 12:13 Sodium 141 mmol/L (136-145) 03/08/25 12:54 Corrected Sodium 144 mmol/L (136-145) 03/08/25 12:54 Potassium 3.7 mmol/L (3.5-5.1) 03/08/25 12:54 Chloride 104 mmol/L (98-107) 03/08/25 12:54 Carbon Dioxide 27.7 mmol/L (21-32) 03/08/25 12:54 BUN 24 mg/dL (7-18) H 03/08/25 12:54 Creatinine 1.35 mg/dL (0.55-1.02) H 03/08/25 12:54 Est GFR (MDRD) Af Amer 50 (>60) L 03/08/25 12:54 Est GFR (MDRD) Non-Af 42 (>60) L 03/08/25 12:54 Glucose 219 mg/dL (65-99) H 03/08/25 12:54 Lactic Acid 1.6 mmol/L (0.4-2.0) 03/08/25 12:13 Calcium 10.1 mg/dL (8.5-10.1) 03/08/25 12:54 Corrected Calcium TNP 03/08/25 12:54 Total Bilirubin 0.50 mg/dL (0.2-1.0) 03/08/25 12:54 AST 14 Units/L (15-37) L 03/08/25 12:54 ALT 18 Units/L (12-78) 03/08/25 12:54 Alkaline Phosphatase 103 Units/L (46-116) 03/08/25 12:54 Total Protein 8.3 g/dL (6.4-8.2) H 03/08/25 12:54 Albumin 3.6 g/dL (3.4-5.0) 03/08/25 12:54 Globulin 4.7 g/dL (2.5-4.5) H 03/08/25 12:54 Albumin/Globulin Ratio 0.8 Ratio (1.1-2.1) L 03/08/25 12:54 Opioid Opioid Risk Tool Age (Kartik box if 16-45): No History of Preadolescent Sexual Abuse: No Total: 0 Total Score Risk Category: Low Risk Copyright: [employer] predicting aberrant behaviors Discharge Plan Diagnosis Discharge Problem: Decubitus ulcer Type 2 diabetes mellitus Qualifiers: Diabetes mellitus care home insulin use: without middle or intermediate school principal use Diabetes mellitus complication status: with hyperglycemia Qualified Code(s): E11.65 - Type 2 diabetes mellitus with hyperglycemia Discharge Plan Patient Disposition: 09 ADMITTED INPATIENT Condition: Stable Prescriptions: No Action (DME) lancets [Accu-Chek Softclix Lancets] Misc See Rx Instructions .ROUTE .COMPLEX Qty: 100 3RF Dose Instruction: TAKE DIRECTED Rx Instructions: TAKE DIRECTED insulin glargine [Lantus Solostar U-100 Insulin] 100 unit/mL (3 mL) insulin pen 20 unit subcut QAM 30 Days Qty: 15 3RF fenofibrate 160 mg tablet 160 mg PO QPM Qty: 90 1RF amlodipine [Norvasc] 5 mg tablet 5 mg PO QDAY 90 Days Qty: 90 1RF losartan 100 mg tablet 100 mg PO QDAY Qty: 90 1RF pioglitazone 45 mg tablet 45 mg PO QDAY Qty: 90 1RF metformin 750 mg tablet extended release 24 hr 750 mg PO BID 90 Days Qty: 180 1RF meloxicam 15 mg tablet 15 mg PO QDAY Health Concerns: Post Hospitalization: new medications and changes needed to prevent readmission or further decline. Pt educated and given instructions on all concerns. Plan of Treatment: Continue with present treatment and follow up plan. Pt is to keep follow up appointment as instructed and take medications as ordered. Orders to Discharge Patient Discharge Orders: Transfer (Routine); Ordered 03/08/25 Ordered By: Brian Pickett Follow ups/Referrals Follow ups/Referrals: Anton Chiu MD [Primary Care Provider, MEDICAL] - 3 days Instructions Stand Alone Forms: Find Help Web Site, Post Hospital Follow Up Care Print Language: ICELANDIC
[2025-03-08] MEDS ORDERED: VANCOMYCIN IV *PREMIX 1 G/200 ML BAG 1 G/200 ML PIGGYBACK IV ONE (14:35)
[2025-03-08 14:45] LABS: INR 0.97 (0.8-1.3)
--- NOTE | 2025-03-08 14:46 | EKG ---
Test Reason : preop Blood Pressure : */* mmHG Vent. Rate : 98 BPM Atrial Rate : 98 BPM P-R Int : 144 ms QRS Dur : 84 ms QT Int : 354 ms P-R-T Axes : 56 -2 53 degrees QTc Int : 451 ms Normal sinus rhythm Cannot rule out Anterior infarct , age undetermined Abnormal ECG When compared with ECG of 29-AUG-2024 11:16, T wave amplitude has decreased in Anterior leads Confirmed by Ulises Fernandez MD ([id number]) on 03/08/2025 2:49:30 PM Referred By: Confirmed By: Ulises Fernandez MD
[2025-03-08] MEDS: ZOSYN VIAL 3.375 GRAMS 3.375 G in NS 100 ML IV 100 ML IV ONE (14:51)
[2025-03-08] MEDS ORDERED: CONSULT PHARMACY - POTASSIUM & MAGNESIUM XX SCH (15:22)
[2025-03-08] MEDS ORDERED: ZOFRAN INJ 4 MG VIAL IVP PRN (15:22)
[2025-03-08] MEDS ORDERED: NovoLIN R (or HumuLIN R) SUBCUT PRN (15:22)
[2025-03-08] MEDS ORDERED: TYLENOL 325 MG TAB PO PRN (15:22)
[2025-03-08 15:52] VITALS: BMI 33.0
[2025-03-08] MEDS: NS 1,000 ML IV 1,000 ML IV SCH (16:45)
[2025-03-08] MEDS: VANCOMYCIN IV *PREMIX 1.25 G/250 ML BAG 1.25 G/250 ML PIGGYBACK IV SCH (16:45)
[2025-03-08] MEDS: NORCO 5/325 MG TAB PO PRN (16:46)
[2025-03-08] MEDS: K-DUR TAB 20 MEQ PO SCH (16:46)
[2025-03-08] MEDS: SNACK - Diabetic Appropriate PO SCH (20:12)
[2025-03-08] MEDS ORDERED: NS 250 ML IV 250 ML IV ONE (21:43)
[2025-03-08] MEDS: NS 250 ML IV 25 ML IV PRN (21:50)
[2025-03-08] MEDS: TRICOR TAB 48 MG PO SCH (21:51)
[2025-03-08] MEDS: ZOSYN VIAL 3.375 GRAMS 3.375 G in NS 100 ML IV 100 ML IV SCH (21:51)
[2025-03-09] MEDS: MORPHINE SULFATE INJ 2 MG INJ IVP PRN (04:03)
--- NOTE | 2025-03-09 05:41 | RAD ---
EXAM: CHEST, 1 VIEW HISTORY: PRE OP ULCER; COMPARISON: 08/31/2024 FINDINGS: The trachea is midline. The cardiac silhouette is unremarkable. There is mild elevation of the right hemidiaphragm. Right basilar subsegmental atelectasis and/or infiltrate. The left lung is clear.. The bony thorax is unremarkable. IMPRESSION: Right basilar subsegmental atelectasis and/or infiltrate. THIS IS AN ELECTRONICALLY VERIFIED FINAL REPORT 03/09/2025 5:38 AM - Electronically signed by Nikko Madera MD
[2025-03-09 06:01] LABS: RED CELL DISTRIBUTION WIDTH 14.7 % (11.6-16.5)
[2025-03-09 06:03] LABS: COR CA(FOR HYPOALB) 9.9 mg/dL (8.5-10.1); COR NA(FOR HYPERGLY) 143 mmol/L (136-145); CREATININE 1.03 mg/dL (0.55-1.02); eGFR NON BLACK RACES 57 (>60)
[2025-03-09 06:04] LABS: MEAN PLATELET VOLUME 9.1 fL (7.4-11.0)
[2025-03-09 06:34] LABS: BAND NEUTROPHILS % 5 % (0-10); PLATELET MORPHOLOGY COMMENT NORMAL (NORMAL)
[2025-03-09] MEDS ORDERED: CONSULT PHARMACY - POTASSIUM & MAGNESIUM XX SCH (07:00)
[2025-03-09] MEDS ORDERED: MAGNESIUM SULFATE 1 GRAM/100 mL PREMIX 1 G/100 ML BAG IV SCH (09:00)
[2025-03-09] MEDS: NS 1,000 ML IV 1,000 ML ONE (09:36)
[2025-03-09] MEDS: NS 100 ML IV 100 ML ONE (09:40)
[2025-03-09] MEDS: XYLOCAINE 1 % (PLAIN) ONE (09:43)
[2025-03-09] MEDS: ANCEF VIAL 1 GRAM ONE (09:43)
--- NOTE | 2025-03-09 09:51 | DR.H&P ---
H&P History & Physical for Day of: H&P Date: 03/09/25 Chief Complaint Chief Complaint: decubitus ulcer History of Present Illness History of Present Illness: Patient is a 64-year-old female with a past medical history of hypertension, type 2 diabetes, hyperlipidemia and arthritis who presented with sacral ulcer. She was seen outpatient in the office and advised to go to the ER for further evaluation. She reports having this for a week, has increased in size and foul drainage. ER workup included labs and imaging. Wound culture blood cultures were collected. Patient was started on IV vancomycin and Zosyn. Chest x-ray showed bibasilar atelectasis. Surgery was consulted for possible I&D. Labs/imaging reviewed: - WBC 7.6 hemoglobin 10.1 potassium 4.0 creatinine 1.03 magnesium 1.3 - Chest x-ray reviewed - Cultures pending Plan: Admit to [facility]. Continue IV antibiotics. Follow final cultures. Follow surgery recommendations, plan for I&D today. Continue pain control. Resume home medications as appropriate. Replace electrolytes as per protocol. Continue hydration. Monitor a.m. labs and imaging. 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 Family History Family Medical History: Hypertension Social History Does any household member use tobacco: No Alcohol Use: Occasionally Drug Use: None Medications Home Medications: Home Medications Medication Instructions Recorded Confirmed Type meloxicam 15 mg tablet 15 mg PO QDAY 03/08/2503/08 History Allergies Allergies Allergy/AdvReac Type Severity Reaction Status Date / Time epinephrine Allergy Verified 03/08/25 11:36 lidocaine Allergy Verified 03/08/25 11:36 Labs 03/09/25 05:42 03/09/25 05:42 Labs: 03/08/25 12:06 Buttock Wound Gram Stain - Final Laboratory WBC 7.6 X10^3/uL (3.6-10.0) 03/09/25 05:42 RBC 3.70 X10^6/uL (3.5-5.4) 03/09/25 05:42 Hgb 10.1 g/dL (12.0-16.0) L 03/09/25 05:42 Hct 30.8 % (36.0-47.0) L 03/09/25 05:42 MCV 83.4 fL (80.0-100.0) 03/09/25 05:42 MCH 27.4 pg (27.0-34.0) 03/09/25 05:42 MCHC 32.8 g/dL (33.0-35.0) L 03/09/25 05:42 RDW 14.7 % (11.6-16.5) 03/09/25 05:42 Plt Count 275 X10^3/uL (150.0-450.0) 03/09/25 05:42 Plt Count Comment Adequate (ADEQUATE) 03/09/25 05:42 MPV 9.1 fL (7.4-11.0) 03/09/25 05:42 Neut % (Auto) 65.3 % (42.0-75.0) 03/09/25 05:42 Lymph % (Auto) 22.9 % (21.0-51.0) 03/09/25 05:42 Rankin % (Auto) 9.3 % (0.0-13.0) 03/09/25 05:42 Eos % (Auto) 1.7 % (0.9-2.9) 03/09/25 05:42 Baso % (Auto) 0.8 % (0.2-1.0) 03/09/25 05:42 Neut # (Auto) 4.9 x10^3/uL (2.2-4.8) H 03/09/25 05:42 Lymph # (Auto) 1.7 X10^3/uL (1.3-2.9) 03/09/25 05:42 Rankin # (Auto) 0.7 x10^3/uL (0.3-0.8) 03/09/25 05:42 Eos # (Auto) 0.1 x10^3/uL (0.0-0.2) 03/09/25 05:42 Baso # (Auto) 0.1 X10^3/uL (0.0-0.1) 03/09/25 05:42 Absolute Nucleated RBC 0.3 /100WBC 03/09/25 05:42 Total Counted 100 03/09/25 05:42 Neutrophils % (Manual) 57 % (39-76) 03/09/25 05:42 Band Neutrophils % 5 % (0-10) 03/09/25 05:42 Lymphocytes % (Manual) 31 % (13-43) 03/09/25 05:42 Monocytes % (Manual) 5 % (4-9) 03/09/25 05:42 Eosinophils % (Manual) 2 % (0-6) 03/09/25 05:42 Plt Morphology Comment Normal (NORMAL) 03/09/25 05:42 RBC Morphology Normal (NORMAL) 03/09/25 05:42 PT 13.0 SECONDS (11.8-14.3) 03/08/25 12:54 INR Target Range - 03/08/25 12:54 INR 0.97 (0.8-1.3) 03/08/25 12:54 APTT 33.4 SECONDS (22.9-36.5) 03/08/25 12:54 PTT Comment - 03/08/25 12:54 Sodium 141 mmol/L (136-145) 03/09/25 05:42 Corrected Sodium 143 mmol/L (136-145) 03/09/25 05:42 Potassium 4.0 mmol/L (3.5-5.1) 03/09/25 05:42 Chloride 106 mmol/L (98-107) 03/09/25 05:42 Carbon Dioxide 24.1 mmol/L (21-32) 03/09/25 05:42 BUN 18 mg/dL (7-18) 03/09/25 05:42 Creatinine 1.03 mg/dL (0.55-1.02) H 03/09/25 05:42 Est GFR (MDRD) Af Amer > 60 (>60) 03/09/25 05:42 Est GFR (MDRD) Non-Af 57 (>60) L 03/09/25 05:42 Glucose 200 mg/dL (65-99) H 03/09/25 05:42 POC Glucose (mg/dL) 191 mg/dL (65-99) H 03/09/25 05:09 Lactic Acid 1.6 mmol/L (0.4-2.0) 03/08/25 12:13 Calcium 9.1 mg/dL (8.5-10.1) 03/09/25 05:42 Corrected Calcium 9.9 mg/dL (8.5-10.1) 03/09/25 05:42 Magnesium 1.3 mg/dL (2.0-2.9) L 03/09/25 05:42 Total Bilirubin 0.30 mg/dL (0.2-1.0) 03/09/25 05:42 AST 10 Units/L (15-37) L 03/09/25 05:42 ALT 18 Units/L (12-78) 03/09/25 05:42 Alkaline Phosphatase 84 Units/L (46-116) 03/09/25 05:42 Total Protein 6.9 g/dL (6.4-8.2) 03/09/25 05:42 Albumin 3.0 g/dL (3.4-5.0) L 03/09/25 05:42 Globulin 3.9 g/dL (2.5-4.5) 03/09/25 05:42 Albumin/Globulin Ratio 0.8 Ratio (1.1-2.1) L 03/09/25 05:42 Review of Systems Constitutional: Malaise Eyes: No Symptoms Reported ENT: No Symptoms Reported Respiratory: No Symptoms Reported Cardiovascular: No Symptoms Reported Gastrointestinal: No Symptoms Reported Genitourinary: No Symptoms Reported Musculoskeletal: No Symptoms Reported Skin: Wound Neurological: No Symptoms Reported Physical Exam Vital Signs: Vital Signs Temperature 97.8 F Temperature 97.8 F Pulse Rate [Right] 83 Pulse Rate [Right] 85 Pulse Rate 86 Respiratory Rate 16 Respiratory Rate 19 Respiratory Rate 18 Respiratory Rate 18 Respiratory Rate 18 Blood Pressure [Right Arm] 140/75 Blood Pressure [Right Arm] 159/77 Blood Pressure 192/66 O2 Sat by Pulse Oximetry 96 O2 Sat by Pulse Oximetry 96 O2 Sat by Pulse Oximetry 96 Oriented: Normal Respiratory: Clear Throughout Cardiovascular: Normal Auscultation: Bowel Sounds: Normal Palpation: Normal Tenderness: Normal Skin: Tender, Wound and Other (Sacral area) Musculoskeletal: Normal Psychiatric: Normal Mood Description: Calm Affect: Normal Speech Pattern: Clear and Appropriate Assessment/Plan (1) Abscess of buttock, right: Status: Acute (2) Decubitus ulcer: Qualifiers: Laterality: right Pressure injury location: buttock Pressure injury stage: unspecified pressure injury stage Qualified Code(s): L89.319 - Pressure ulcer of right buttock, unspecified stage Status: Acute (3) Type 2 diabetes mellitus: Qualifiers: Diabetes mellitus complication status: with hyperglycemia Diabetes mellitus [facility] insulin use: without ocean transportation intermediary use Qualified Code(s): E11.65 - Type 2 diabetes mellitus with hyperglycemia Status: Chronic (4) Essential hypertension: Status: Chronic Review H&P Reviewed: Yes Patient was examined?: Yes
[2025-03-09] MEDS: NS 1,000 ML IV 300 ML IV PRN (09:57)
[2025-03-09] MEDS: ANCEF VIAL 1 GRAM IV PRN (09:57)
[2025-03-09] MEDS: BETADINE SOLN ONE (10:00)
[2025-03-09] MEDS: VERSED ONE (10:01)
[2025-03-09] MEDS: VERSED IVP PRN (10:02)
[2025-03-09] MEDS: DIPRIVAN VIAL 170 ML IVP PRN (10:05)
[2025-03-09] MEDS: POLYMYXIN B SULFATE ONE (10:10)
[2025-03-09] MEDS: MARCAINE 0.5% ONE (10:10)
[2025-03-09] MEDS: DIPRIVAN VIAL 20 ML ONE (10:14)
[2025-03-09] MEDS: COZAAR PO SCH (10:50)
[2025-03-09] MEDS: NORVASC TAB 5 MG PO SCH (10:50)
[2025-03-09] MEDS: NS 1,000 ML IV 1,000 ML with MAGNESIUM SULFATE 50% INJ VIAL 2 G IV SCH (10:50)
[2025-03-09] MEDS: LANTUS SC SCH (14:29)
[2025-03-09] MEDS ORDERED: GLUCOPHAGE ONE (16:24)
[2025-03-09] MEDS: GLUCOPHAGE PO SCH (16:31)
[2025-03-09] MEDS: ULTRAM PO PRN (21:31)
[2025-03-10 05:50] LABS: MEAN PLATELET VOLUME 9.1 fL (7.4-11.0); RED CELL DISTRIBUTION WIDTH 14.7 % (11.6-16.5)
[2025-03-10 05:54] LABS: COR CA(FOR HYPOALB) 9.7 mg/dL (8.5-10.1); COR NA(FOR HYPERGLY) 143 mmol/L (136-145); CREATININE 0.77 mg/dL (0.55-1.02); eGFR NON BLACK RACES > 60 (>60)
--- NOTE | 2025-03-10 08:16 | DR.PROGNOT ---
HOSPITAL PROGRESS NOTE Progress Note for Day of: Progress Note Date: 03/10/25 Chief Complaint Chief Complaint: Patient's status post excisional debridement of right hip Skin ulcer measuring 6 x 2 x 3 cm, This was packed with iodoform packing and dressed. Patient is doing fairly well out of bed ambulatory. White count 6.9, hemoglobin 10.3, blood sugar 150, albumin 2.7. Dressing is intact , the rest of her examination is the same as before. Past Medical Family Social History Allergies: Allergies epinephrine Allergy (Verified 03/08/25 11:36) lidocaine Allergy (Verified 03/08/25 11:36) Vital Signs Vital Signs: Vital Signs Temperature 98.1 F Pulse Rate [Right] 76 Respiratory Rate 20 Blood Pressure [left] 125/58 O2 Sat by Pulse Oximetry 97 Physical Exam Oriented: Normal Eyes: Normal Ear: Normal Nose: Normal Throat: Normal Respiratory: Normal, Right, Left, Generalized, Superior, Inferior, Diminished, Wheezes, Rales, Rhonchi and OTHER Cardiovascular: Normal GI:Auscultation: Normal GI:Palpation: Normal GI: Tenderness: Normal Skin: Tender, Wound and Other (Sacral area) Musculoskeletal: Normal Psychiatric: Normal Mood Description: Calm Affect: Normal Speech Pattern: Clear and Appropriate Laboratory and Diagnostics 03/10/25 05:30 03/10/25 05:30 Labs: 03/08/25 12:06 Buttock Wound Gram Stain - Final 03/08/25 12:06 Buttock Wound Culture - Preliminary Laboratory WBC 6.9 X10^3/uL (3.6-10.0) 03/10/25 05:30 RBC 3.75 X10^6/uL (3.5-5.4) 03/10/25 05:30 Hgb 10.3 g/dL (12.0-16.0) L 03/10/25 05:30 Hct 31.3 % (36.0-47.0) L 03/10/25 05:30 MCV 83.4 fL (80.0-100.0) 03/10/25 05:30 MCH 27.5 pg (27.0-34.0) 03/10/25 05:30 MCHC 33.0 g/dL (33.0-35.0) 03/10/25 05:30 RDW 14.7 % (11.6-16.5) 03/10/25 05:30 Plt Count 316 X10^3/uL (150.0-450.0) 03/10/25 05:30 Plt Count Comment Adequate (ADEQUATE) 03/09/25 05:42 MPV 9.1 fL (7.4-11.0) 03/10/25 05:30 Neut % (Auto) 62.6 % (42.0-75.0) 03/10/25 05:30 Lymph % (Auto) 25.4 % (21.0-51.0) 03/10/25 05:30 Craven % (Auto) 8.6 % (0.0-13.0) 03/10/25 05:30 Eos % (Auto) 2.5 % (0.9-2.9) 03/10/25 05:30 Baso % (Auto) 0.9 % (0.2-1.0) 03/10/25 05:30 Neut # (Auto) 4.3 x10^3/uL (2.2-4.8) 03/10/25 05:30 Lymph # (Auto) 1.7 X10^3/uL (1.3-2.9) 03/10/25 05:30 Craven # (Auto) 0.6 x10^3/uL (0.3-0.8) 03/10/25 05:30 Eos # (Auto) 0.2 x10^3/uL (0.0-0.2) 03/10/25 05:30 Baso # (Auto) 0.1 X10^3/uL (0.0-0.1) 03/10/25 05:30 Absolute Nucleated RBC 0.2 /100WBC 03/10/25 05:30 Total Counted 100 03/09/25 05:42 Neutrophils % (Manual) 57 % (39-76) 03/09/25 05:42 Band Neutrophils % 5 % (0-10) 03/09/25 05:42 Lymphocytes % (Manual) 31 % (13-43) 03/09/25 05:42 Monocytes % (Manual) 5 % (4-9) 03/09/25 05:42 Eosinophils % (Manual) 2 % (0-6) 03/09/25 05:42 Plt Morphology Comment Normal (NORMAL) 03/09/25 05:42 RBC Morphology Normal (NORMAL) 03/09/25 05:42 PT 13.0 SECONDS (11.8-14.3) 03/08/25 12:54 INR Target Range - 03/08/25 12:54 INR 0.97 (0.8-1.3) 03/08/25 12:54 APTT 33.4 SECONDS (22.9-36.5) 03/08/25 12:54 PTT Comment - 03/08/25 12:54 Sodium 142 mmol/L (136-145) 03/10/25 05:30 Corrected Sodium 143 mmol/L (136-145) 03/10/25 05:30 Potassium 4.0 mmol/L (3.5-5.1) 03/10/25 05:30 Chloride 108 mmol/L (98-107) H 03/10/25 05:30 Carbon Dioxide 23.9 mmol/L (21-32) 03/10/25 05:30 BUN 12 mg/dL (7-18) 03/10/25 05:30 Creatinine 0.77 mg/dL (0.55-1.02) 03/10/25 05:30 Est GFR (MDRD) Af Amer > 60 (>60) 03/10/25 05:30 Est GFR (MDRD) Non-Af > 60 (>60) 03/10/25 05:30 Glucose 151 mg/dL (65-99) H 03/10/25 05:30 POC Glucose (mg/dL) 140 mg/dL (65-99) H 03/10/25 06:10 Hemoglobin A1c 8.6 % 03/09/25 05:42 Lactic Acid 1.6 mmol/L (0.4-2.0) 03/08/25 12:13 Calcium 8.7 mg/dL (8.5-10.1) 03/10/25 05:30 Corrected Calcium 9.7 mg/dL (8.5-10.1) 03/10/25 05:30 Magnesium 2.0 mg/dL (2.0-2.9) 03/10/25 05:30 Magnesium Cancelled 03/10/25 05:30 Total Bilirubin 0.20 mg/dL (0.2-1.0) 03/10/25 05:30 AST 9 Units/L (15-37) L 03/10/25 05:30 ALT 14 Units/L (12-78) 03/10/25 05:30 Alkaline Phosphatase 76 Units/L (46-116) 03/10/25 05:30 Total Protein 6.4 g/dL (6.4-8.2) 03/10/25 05:30 Albumin 2.7 g/dL (3.4-5.0) L 03/10/25 05:30 Globulin 3.7 g/dL (2.5-4.5) 03/10/25 05:30 Albumin/Globulin Ratio 0.7 Ratio (1.1-2.1) L 03/10/25 05:30 Assessment and Plan 1: Right hip ulcer, 6 x 2 x 3 cm. Status post excisional debridement.. To change her dressing daily, Irrigate with [id number] peroxide and saline then packed with iodoform packing. Follow-up in 2 weeks. Awaiting final culture report. Problem Patient Problems: Patient Problems Decubitus ulcer (Acute) L89.90 Type 2 diabetes mellitus (Chronic) E11.9 Medications: Lantus 20u Metformin ER 750mg BID Pioglitazone 45mg - Insurance did not cover Ozempic A1c: 10/27/24: 8.4% 07/14/24: 10%
--- NOTE | 2025-03-10 10:19 | PCM.PROG ---
Progress Note Progress Note for Day of Date of Exam: 03/10/25 Subjective Subjective: Patient is a 64-year-old female status post excisional debridement of right hip skin ulcer and abscess. This morning she is sitting up in bed. No acute events overnight. This was packed with iodoform packing and dressed. Labs/imaging: WBC 6.9, hemoglobin 10.3, platelets 316, sodium 142, potassium 4.0, creatinine 0.77, glucose 151, wound culture revealing coagulase-negative staph and pending. Blood cultures pending. She is currently receiving IV antibiotics vancomycin and Zosyn. Will continue. Will have iodoform packing and dressing change. She will need home health for wound care when discharged. Otherwise continue with current treatment plan. Continue closely monitor and follow-up labs/imaging. Past Medical Family Social History Allergies: Allergies epinephrine Allergy (Verified 03/08/25 11:36) lidocaine Allergy (Verified 03/08/25 11:36) Review of Systems ROS changes noted: see HPI Vital Signs and I&O's Vital Signs: Vital Signs Temperature 97.9 F Temperature 98.1 F Pulse Rate [Right] 78 Pulse Rate [Right] 76 Respiratory Rate 20 Respiratory Rate 20 Blood Pressure [left] 133/69 Blood Pressure [left] 125/58 O2 Sat by Pulse Oximetry 97 O2 Sat by Pulse Oximetry 97 Intake and Output: Intake & Output 03/07/25 03/08/25 03/09/25 03/10/25 23:59 23:59 23:59 23:59 Intake Total 950 / 950 6340 / 6340 0 / 0 Output Total 530 / 530 Balance 950 / 950 5810 / 5810 0 / 0 Physical Exam Oriented: Normal Eyes: Normal Ear: Normal Nose: Normal Throat: Normal Respiratory: Normal Cardiovascular: Normal Auscultation: Bowel Sounds: Normal Tenderness: Normal Skin: Tender, Wound and Other (Sacral area) Musculoskeletal: Normal Psychiatric: Normal Mood Description: Calm Affect: Normal Speech Pattern: Clear and Appropriate Laboratory and Diagnostics 03/10/25 05:30 03/10/25 05:30 Labs: 03/08/25 12:06 Buttock Wound Gram Stain - Final 03/08/25 12:06 Buttock Wound Culture - Preliminary Laboratory WBC 6.9 X10^3/uL (3.6-10.0) 03/10/25 05:30 RBC 3.75 X10^6/uL (3.5-5.4) 03/10/25 05:30 Hgb 10.3 g/dL (12.0-16.0) L 03/10/25 05:30 Hct 31.3 % (36.0-47.0) L 03/10/25 05:30 MCV 83.4 fL (80.0-100.0) 03/10/25 05:30 MCH 27.5 pg (27.0-34.0) 03/10/25 05:30 MCHC 33.0 g/dL (33.0-35.0) 03/10/25 05:30 RDW 14.7 % (11.6-16.5) 03/10/25 05:30 Plt Count 316 X10^3/uL (150.0-450.0) 03/10/25 05:30 Plt Count Comment Adequate (ADEQUATE) 03/09/25 05:42 MPV 9.1 fL (7.4-11.0) 03/10/25 05:30 Neut % (Auto) 62.6 % (42.0-75.0) 03/10/25 05:30 Lymph % (Auto) 25.4 % (21.0-51.0) 03/10/25 05:30 Carroll % (Auto) 8.6 % (0.0-13.0) 03/10/25 05:30 Eos % (Auto) 2.5 % (0.9-2.9) 03/10/25 05:30 Baso % (Auto) 0.9 % (0.2-1.0) 03/10/25 05:30 Neut # (Auto) 4.3 x10^3/uL (2.2-4.8) 03/10/25 05:30 Lymph # (Auto) 1.7 X10^3/uL (1.3-2.9) 03/10/25 05:30 [place] # (Auto) 0.6 x10^3/uL (0.3-0.8) 03/10/25 05:30 Eos # (Auto) 0.2 x10^3/uL (0.0-0.2) 03/10/25 05:30 Baso # (Auto) 0.1 X10^3/uL (0.0-0.1) 03/10/25 05:30 Absolute Nucleated RBC 0.2 /100WBC 03/10/25 05:30 Total Counted 100 03/09/25 05:42 Neutrophils % (Manual) 57 % (39-76) 03/09/25 05:42 Band Neutrophils % 5 % (0-10) 03/09/25 05:42 Lymphocytes % (Manual) 31 % (13-43) 03/09/25 05:42 Monocytes % (Manual) 5 % (4-9) 03/09/25 05:42 Eosinophils % (Manual) 2 % (0-6) 03/09/25 05:42 Plt Morphology Comment Normal (NORMAL) 03/09/25 05:42 RBC Morphology Normal (NORMAL) 03/09/25 05:42 PT 13.0 SECONDS (11.8-14.3) 03/08/25 12:54 INR Target Range - 03/08/25 12:54 INR 0.97 (0.8-1.3) 03/08/25 12:54 APTT 33.4 SECONDS (22.9-36.5) 03/08/25 12:54 PTT Comment - 03/08/25 12:54 Sodium 142 mmol/L (136-145) 03/10/25 05:30 Corrected Sodium 143 mmol/L (136-145) 03/10/25 05:30 Potassium 4.0 mmol/L (3.5-5.1) 03/10/25 05:30 Chloride 108 mmol/L (98-107) H 03/10/25 05:30 Carbon Dioxide 23.9 mmol/L (21-32) 03/10/25 05:30 BUN 12 mg/dL (7-18) 03/10/25 05:30 Creatinine 0.77 mg/dL (0.55-1.02) 03/10/25 05:30 Est GFR (MDRD) Af Amer > 60 (>60) 03/10/25 05:30 Est GFR (MDRD) Non-Af > 60 (>60) 03/10/25 05:30 Glucose 151 mg/dL (65-99) H 03/10/25 05:30 POC Glucose (mg/dL) 140 mg/dL (65-99) H 03/10/25 06:10 Hemoglobin A1c 8.6 % 03/09/25 05:42 Lactic Acid 1.6 mmol/L (0.4-2.0) 03/08/25 12:13 Calcium 8.7 mg/dL (8.5-10.1) 03/10/25 05:30 Corrected Calcium 9.7 mg/dL (8.5-10.1) 03/10/25 05:30 Magnesium 2.0 mg/dL (2.0-2.9) 03/10/25 05:30 Magnesium Cancelled 03/10/25 05:30 Total Bilirubin 0.20 mg/dL (0.2-1.0) 03/10/25 05:30 AST 9 Units/L (15-37) L 03/10/25 05:30 ALT 14 Units/L (12-78) 03/10/25 05:30 Alkaline Phosphatase 76 Units/L (46-116) 03/10/25 05:30 Total Protein 6.4 g/dL (6.4-8.2) 03/10/25 05:30 Albumin 2.7 g/dL (3.4-5.0) L 03/10/25 05:30 Globulin 3.7 g/dL (2.5-4.5) 03/10/25 05:30 Albumin/Globulin Ratio 0.7 Ratio (1.1-2.1) L 03/10/25 05:30 Plan (1) Abscess of buttock, right: Status: Acute (2) Decubitus ulcer: Status: Acute Qualifiers: Laterality: right Pressure injury location: buttock Pressure injury stage: unspecified pressure injury stage Qualified Code(s): L89.319 - Pressure ulcer of right buttock, unspecified stage (3) Type 2 diabetes mellitus: Status: Chronic Qualifiers: Diabetes mellitus residential insulin use: without residential use Diabetes mellitus complication status: with hyperglycemia Qualified Code(s): E11.65 - Type 2 diabetes mellitus with hyperglycemia (4) Essential hypertension: Status: Chronic
[2025-03-10] MEDS: HYDROGEN PEROXIDE 3% ONE (11:02)
[2025-03-10] MEDS: GLUCOPHAGE ONE ×2 (20:51)
[2025-03-11 05:05] LABS: MEAN PLATELET VOLUME 9.1 fL (7.4-11.0); RED CELL DISTRIBUTION WIDTH 15.2 % (11.6-16.5)
[2025-03-11 05:17] LABS: COR CA(FOR HYPOALB) 9.8 mg/dL (8.5-10.1); CREATININE 0.80 mg/dL (0.55-1.02); eGFR NON BLACK RACES > 60 (>60)
[2025-03-11] MEDS ORDERED: GLUCOPHAGE ONE (05:37)
[2025-03-11 08:51] LABS: CREATININE 0.84 mg/dL (0.55-1.02)
[2025-03-11] MEDS: PHARMACY COMMENT IV NR (09:30)
[2025-03-11 12:13] VITALS: RESP 20
[2025-03-11 13:47] VITALS: BP 150/80; PULSE 89; TEMP 97.9; O2SAT 97
== END 2025-03-11 13:45 | disposition home health service (06) ==
LOC: ER 11:35 → MED/SURG 11:35
PROVIDERS: ADMIT Family Medicine; ATTEND Family Medicine
DX: I25.10 Atherosclerotic heart disease of native coronary artery without angina pectoris; L02.31 Cutaneous abscess of buttock; D64.89 Other specified anemias; E11.65 Type 2 diabetes mellitus with hyperglycemia; R94.31 Abnormal electrocardiogram [ECG] [EKG]; R94.4 Abnormal results of kidney function studies; Z01.810 Encounter for preprocedural cardiovascular examination; L89.219 Pressure ulcer of right hip, unspecified stage; I10 Essential (primary) hypertension; M19.90 Unspecified osteoarthritis, unspecified site; I96 Gangrene, not elsewhere classified; E78.5 Hyperlipidemia, unspecified; Z79.4 Long term (current) use of insulin